=== PATIENT | male | born 1960 | race Hispanic/Latino ===

== ENCOUNTER 2018-12-02 16:05 | Emergency (ER) | payer OTHER ==
[~2018-12-02] VITALS: Ht 177.8 cm; Wt 99.8 kg
[2018-12-02] MEDS ORDERED: ACETAMINOPHEN 325 MG TAB PO ONE ×2 (16:45→23:30)
[2018-12-02 17:44] LABS: BASOPHILS % 0.4 % (0.0-1.0); EOSINOPHILS % 0.2 % (0.0-6.0); HEMATOCRIT 37.3 % (38.2-49.6); HEMOGLOBIN 13.3 g/dL (14.0-18.0); LYMPHOCYTES # (AUTO) 0.7 (1.0-3.2); LYMPHOCYTES % 9.2 % (18.0-39.1); MEAN CORPUSCULAR HEMOGLOBIN 30.9 pg (28-32); MEAN CORPUSCULAR HGB CONC 35.7 g/dL (31-35); MEAN CORPUSCULAR VOLUME 86.5 fL (81-99); MONOCYTES # (AUTO) 0.4 (0.2-0.8); MONOCYTES % 4.4 % (4.4-11.3); NEUTROPHILS # (AUTO) 6.8 (2.1-6.9); NEUTROPHILS % 84.9 % (38.7-80.0); PLATELET COUNT 132 x10e3/uL (140-360); RED BLOOD COUNT 4.31 x10e6/uL (4.3-5.7); RED CELL DISTRIBUTION WIDTH 12.5 % (11.7-14.4)
[2018-12-02 17:45] LABS: BILIRUBIN,URINE LARGE (NEGATIVE); CLARITY,URINE SL CLOUDY (CLEAR); COLOR,URINE BROWN (YELLOW); KETONES,URINE 1+ (NEGATIVE); LEUKOCYTE ESTERASE ,URINE NEGATIVE (NEGATIVE); NITRITE,URINE POSITIVE (NEGATIVE); PROTEIN,URINE DIPSTICK 2+ (NEGATIVE)
[2018-12-02 17:47] LABS: URINE UROBILINOGEN 8 mg/dL (0.2 - 1)
[2018-12-02 17:55] LABS: INR 1.19; PROTHROMBIN TIME 15.7 seconds (11.9-14.5)
[2018-12-02 17:56] LABS: PARTIAL THROMBOPLASTIN TIME 36.8 seconds (23.8-35.5)
[2018-12-02 18:00] LABS: BACTERIA,URINE MODERATE /HPF; EPITHELIAL CELLS,URINE FEW /LPF; WBC,URINE (MAN) 0-5 /HPF (0-5)
--- NOTE | 2018-12-02 18:03 | Diagnostic Imaging Report ---
Examination: Single AP view of the chest. COMPARISON: None. INDICATION: Chest pain DISCUSSION: Lines/tubes: None. Lungs: The lungs are well inflated and clear. No pneumonia or pulmonary edema. Pleura: No pleural effusion or pneumothorax. Heart and mediastinum: The heart and the mediastinum are unremarkable. Bones and soft tissues: No acute bony abnormalities. IMPRESSION: 1. No acute cardiopulmonary abnormalities. Signed by: Dr. Alban Alberto M.D. on 12/02/2018 5:59 PM
[2018-12-02 18:07] LABS: ALANINE AMINOTRANSFERASE 168 IU/L (0-55); ALBUMIN 3.2 g/dL (3.5-5.0); ALBUMIN/GLOBULIN RATIO 0.7 (0.8-2.0); ALKALINE PHOSPHATASE 79 IU/L (40-150); ANION GAP 13.1 mmol/L (8-16); BLOOD UREA NITROGEN 16 mg/dL (7-26); BUN/CREATININE RATIO 15 (6-25); CALCIUM 9.5 mg/dL (8.4-10.2); CARBON DIOXIDE 31 mmol/L (22-29); CHLORIDE 89 mmol/L (98-107); CREATINE KINASE 125 IU/L (30-200); CREATININE, SERUM 1.07 mg/dL (0.72-1.25); EST GLOMERULAR FILTRATION RATE > 60 ML/MIN (60-); GLUCOSE 212 mg/dL (74-118); POTASSIUM 3.1 mmol/L (3.5-5.1); SODIUM 130 mmol/L (136-145)
[2018-12-02] MEDS ORDERED: KCL 20MEQ/.9 SOD CHL 1,000 ML IV ONE (20:30)
[2018-12-02 20:44] LABS: AMPHETAMINES SCREEN,URINE NEGATIVE (NEGATIVE); BENZODIAZEPINES SCREEN,URINE POSITIVE (NEGATIVE); PHENCYCLIDINE SCREEN,URINE NEGATIVE (NEGATIVE)
[2018-12-02 20:48] LABS: ACETAMINOPHEN < 3 ug/mL (10-30); SALICYLATE < 5.0 mg/dL (0-30)
[2018-12-02 20:50] LABS: STREPTOCOCCUS GRP A ANTIGEN NEGATIVE (NEGATIVE)
[2018-12-02 20:57] LABS: INFLUENZAE A&B ANTIGEN (RAPID) NEGATIVE (NEGATIVE)
[2018-12-02 21:16] LABS: BAND NEUTROPHILS % (MANUAL) 6 %; LYMPHOCYTES % (MANUAL) 7 % (19-48); MONOCYTES % (MANUAL) 3 % (3.4-9.0); NEUTROPHILS % (MANUAL) 80 % (40-74)
--- NOTE | 2018-12-02 21:19 | Diagnostic Imaging Report ---
EXAMINATION: Head CT without contrast. HISTORY:Headache and fever. COMPARISON:None. TECHNIQUE: Multidetector axial images were obtained from the foramen magnum to the vertex without contrast. The images were reconstructed using brain and bone algorithms. Thin section brain images were reformatted into coronal and sagittal planes. Dose modulation, iterative reconstruction, and/or weight based adjustment of the mA/kV was utilized to reduce the radiation dose to as low as reasonably achievable. Intravenous contrast: None IMAGE QUALITY: Acceptable. FINDINGS: Skull/scalp: No lytic or blastic. lesions. No surgical changes. Parenchyma: No abnormal density. No acute hemorrhage, mass or acute major vascular territorial infarct. Arteries: No density suggestive of thrombosis. Dural sinuses: No abnormal density suggestive of thrombosis. Ventricles: No hydrocephalus or displacement. Extra-axial spaces: No abnormal density. Brain volume: Normal for age. Craniocervical junction: No mass, Chiari malformation, or basilar invagination. Sella: No mass. Paranasal/mastoid sinuses: Imaged portions unremarkable. IMPRESSION: No acute intracranial abnormality. Signed by: Dr. Viviana Hough M.D. on 12/02/2018 9:16 PM
[2018-12-02 21:21] LABS: ANISOCYTOSIS SLIGHT; HYPOCHROMASIA SLIGHT; RBC MORPHOLOGY COMMENT NORMAL
[2018-12-02 21:22] LABS: PLATELET ESTIMATE SLIGHTLY DECREASED; PLATELET MORPHOLOGY COMMENT NORMAL
[2018-12-02] MEDS ORDERED: HYDROCODONE/APAP 10MG-325MG TAB PO ONE (21:45)
[2018-12-02] MEDS ORDERED: IBUPROFEN 800MG/ 250ML 800 MG in SODIUM CHLORIDE 0.9% 250ML 250 ML IV ONE (22:00)
[2018-12-02] MEDS ORDERED: IBUPROFEN 400 MG TAB ONE (22:11)
[2018-12-02] MEDS ORDERED: SODIUM CHLORIDE 0.9% 50ML 50 ML ONE (22:13)
[2018-12-02] MEDS ORDERED: IOPAMIDOL 370 MG/ML 200 ML INFUS..BTL INJ ONE (22:13)
[2018-12-02] MEDS ORDERED: IBUPROFEN 400 MG TAB PO ONE (22:15)
--- NOTE | 2018-12-02 22:17 | Diagnostic Imaging Report ---
EXAM: CT Abdomen and Pelvis WITH contrast INDICATION: Pain. Fever. Elevated liver function tests/transaminases. COMPARISON: None. TECHNIQUE: Abdomen and pelvis were scanned utilizing a multidetector helical scanner from the lung base to the pubic symphysis after administration of IV contrast. Coronal and sagittal reformations were obtained. Routine protocol was performed. Scan was performed when during portal venous phase. IV CONTRAST: 100 cc is of view 300 ORAL CONTRAST: Water RADIATION DOSE: Total DLP: 793.65 mGy*cm Estimated effective dose: (DLP x 0.015 x size factor) mSv COMPLICATIONS: None FINDINGS: LINES and TUBES: None. LOWER THORAX: There is mild bibasilar atelectasis. HEPATOBILIARY: Liver enlarged measuring 20.5 cm in length. The liver is diffuse hypodense compared to the spleen, consistent with diffuse hepatic diffuse hepatic steatosis. No focal hepatic lesions. No biliary ductal dilation. GALLBLADDER: No radio-opaque stones or sludge. No wall thickening. Mild gallbladder hydrops measuring 5.2 cm in maximal transverse dimension. SPLEEN: No splenomegaly. PANCREAS: No focal masses or ductal dilatation. ADRENALS: No adrenal nodules KIDNEYS/URETERS: Kidneys enhance symmetrically. No hydronephrosis. No cystic or solid mass lesions. 2 mm nonobstructing calculus in the upper pole of the left kidney on image 38 series 2. GI TRACT: No abnormal distention, wall thickening, or evidence of bowel obstruction. Appendix is normal. PELVIC ORGANS/BLADDER: Unremarkable. LYMPH NODES: No lymphadenopathy. VESSELS: There is mild atherosclerotic disease in the aorta and major arterial branches. PERITONEUM / RETROPERITONEUM: No free air or fluid. BONES: There are multilevel degenerative changes in the lumbar spine. SOFT TISSUES: Unremarkable. IMPRESSION: 1. Hepatomegaly and hepatic steatosis. 2. Mild gallbladder hydrops without cholelithiasis, cholecystitis or biliary dilatation. 3. 2 mm nonobstructing calculus in the upper pole of the left kidney Signed by: Dr. Gildardo Loving M.D. on 12/02/2018 10:14 PM
[2018-12-02] MEDS ORDERED: CEFTRIAXONE SOD 1 GM/NS 50 ML 50 ML IV ONE (23:30)
[2018-12-02 23:56] VITALS: BP 126/79
== END 2018-12-03 00:08 | disposition home or self-care (01) ==
LOC: ER 16:05
DX: G44.211 Episodic tension-type headache, intractable (principal); K70.10 Alcoholic hepatitis without ascites; N30.91 Cystitis, unspecified with hematuria; E86.0 Dehydration
CPT/HCPCS: 36415; 70450; 71045; 74177; 80053; 80307; 80320; 80329 ×2; 81001; 82550; 82553; 83518; 83735; 83880; 84484; 85025; 85610; 85730; 87040; 87070; 87071; 87205; 87400; 93005; 99284; J0696; J7050; Q9967

== ENCOUNTER 2018-12-07 13:52 | Inpatient (IN) | payer OTHER ==
[~2018-12-07] VITALS: Ht 177.8 cm; Wt 93.9 kg
[2018-12-07] MEDS ORDERED: SODIUM CHLORIDE 0.9% 1000ML 1,000 ML IV STA ×3 (13:59→14:51)
[2018-12-07] MEDS ORDERED: DIGOXIN INJ 0.25 MG/ML 2 ML AMP IV ONE (14:00)
[2018-12-07] MEDS ORDERED: AMIODARONE HCL 150MG 100 ML IV ONE (14:00)
[2018-12-07] MEDS ORDERED: AMIODARONE HCL 360MG 200 ML IV SCH ×2 (14:00→18:00)
[2018-12-07] MEDS ORDERED: ASPIRIN 81 MG CHEW TAB PO ONE (14:00)
[2018-12-07] MEDS ORDERED: SODIUM CHLORIDE 0.9% 1000ML 1,000 ML ONE ×2 (14:08→14:28)
[2018-12-07] MEDS ORDERED: VANCOMYCIN 1GM/NS 250 ML 250 ML IV ONE (14:15)
[2018-12-07] MEDS ORDERED: CEFEPIME 2 GM/NS 0.9% 100 ML 100 ML IV ONE (14:15)
[2018-12-07 14:16] LABS: BASOPHILS # (AUTO) 0.1 (0.0-0.1); BASOPHILS % 0.2 % (0.0-1.0); EOSINOPHILS # (AUTO) 0.1 (0.0-0.4); EOSINOPHILS % 0.6 % (0.0-6.0); HEMATOCRIT 29.8 % (38.2-49.6); HEMOGLOBIN 10.7 g/dL (14.0-18.0); LYMPHOCYTES # (AUTO) 1.4 (1.0-3.2); MEAN CORPUSCULAR HEMOGLOBIN 30.9 pg (28-32); MEAN CORPUSCULAR HGB CONC 35.9 g/dL (31-35); MEAN CORPUSCULAR VOLUME 86.1 fL (81-99); MONOCYTES # (AUTO) 0.3 (0.2-0.8); MONOCYTES % 1.4 % (4.4-11.3); NEUTROPHILS # (AUTO) 17.9 (2.1-6.9); NEUTROPHILS % 88.4 % (38.7-80.0); RED BLOOD COUNT 3.46 x10e6/uL (4.3-5.7); RED CELL DISTRIBUTION WIDTH 14.4 % (11.7-14.4)
[2018-12-07 14:27] LABS: INR 1.41; PROTHROMBIN TIME 17.8 seconds (11.9-14.5)
[2018-12-07 14:28] LABS: PARTIAL THROMBOPLASTIN TIME 42.5 seconds (23.8-35.5)
[2018-12-07 14:33] LABS: PLATELET COUNT 43 x10e3/uL (140-360)
--- NOTE | 2018-12-07 14:33 | NUR ---
PTS BP NOW 75/51. SECOND LITER OF NS HUNG CONCURRENTLY WITH FIRST LITER THAT WAS RUNNING. BOTH BAGS RUNNING WIDE OPEN. ERMD AWARE. PT CONTINUES BE ON BIPAP AND RR 36
[2018-12-07 14:35] LABS: ABG HCO3 18 mmol/L (23-28); ABG PCO2 26 mmHg (41-51); ABG PH 7.45 (7.31-7.41); ABG PO2 277 mmHg (80-105)
[2018-12-07 14:36] LABS: ALBUMIN 1.9 g/dL (3.5-5.0); ALBUMIN/GLOBULIN RATIO 0.5 (0.8-2.0); CREATININE, SERUM 5.44 mg/dL (0.72-1.25); MAGNESIUM 2.2 MG/DL (1.3-2.1)
[2018-12-07 14:38] LABS: CALCIUM 6.9 mg/dL (8.4-10.2)
[2018-12-07 14:41] LABS: B-TYPE NATRIURETIC PEPTIDE2 537.7 pg/mL (0-100)
[2018-12-07 14:45] LABS: CREATINE KINASE MB 10.6 ng/mL (0-5.0)
[2018-12-07] MEDS: MIDAZOLAM HCL 25 MG in SODIUM CHLORIDE 0.9% 50ML 45 ML IV PRN ×2 (15:00→22:05)
--- NOTE | 2018-12-07 15:15 | Diagnostic Imaging Report ---
Examination: Single AP view of the chest. COMPARISON: AP chest 12/02/2018 INDICATION: Shortness of breath, atrial fibrillation, chest pain IMPRESSION: 1. Lines and Tubes: None 2. Lungs are well-inflated. Bilateral interstitial opacities extending from the mae, right greater than left, likely reflecting interstitial edema.. A more confluent airspace opacity in the right upper lobe likely reflect alveolar edema. No effusion. 3. Cardiomediastinal silhouette is normal. Moderate central pulmonary venous congestion 4. No acute bony abnormalities. Signed by: Dr. Donte Alcantara M.D. on 12/07/2018 3:12 PM
[2018-12-07] MEDS ORDERED: ACETAMINOPHEN 1000 MG/100 ML IV ONE (15:20)
[2018-12-07] MEDS ORDERED: ACETAMINOPHEN 1000 MG/100 ML 100 ML IV ONE (15:21)
[2018-12-07] MEDS ORDERED: HEPARIN 25,000 UNIT 1,000 UNIT in DEXTROSE 5% 250ML 250 ML IV SCH (15:30)
[2018-12-07] MEDS ORDERED: HEPARIN SOD (PORCINE) 5,000 UNIT/ML VIAL IV ONE (15:30)
--- NOTE | 2018-12-07 15:59 | Diagnostic Imaging Report ---
Chest, 1 view, 12/07/2018. History: Post intubation. Comparison: X-ray from earlier today. Findings: ET tube is present terminating at the level of the clavicles. Diffuse bilateral alveolar opacities are unchanged. There are no acute osseous or soft tissue abnormalities. Impression: ET tube in adequate position. Bilateral opacities without significant change. Signed by: Will Hoskins on 12/07/2018 3:56 PM
[2018-12-07 16:08] LABS: CLARITY,URINE CLOUDY (CLEAR); COLOR,URINE YELLOW (YELLOW)
[2018-12-07 16:09] LABS: BILIRUBIN,URINE 2+ (NEGATIVE); KETONES,URINE TRACE (NEGATIVE); LEUKOCYTE ESTERASE ,URINE 1+ (NEGATIVE); NITRITE,URINE NEGATIVE (NEGATIVE); PROTEIN,URINE DIPSTICK 2+ (NEGATIVE)
[2018-12-07] MEDS ORDERED: ONDANSETRON HCL INJ 2MG/ML 2ML 2 MG/ML VIAL IV PRN (16:15)
[2018-12-07] MEDS ORDERED: DEXTROSE 50% SYRINGE 50 ML IV PRN (16:15)
[2018-12-07] MEDS ORDERED: SODIUM CHLORIDE 0.9% 1000ML 1,000 ML IV ONE (16:15)
[2018-12-07 16:18] LABS: AMORPHOUS SEDIMENT,URINE MODERATE (FEW); BACTERIA,URINE FEW /HPF
[2018-12-07] MEDS ORDERED: POTASSIUM CHLORIDE 20MEQ/100ML 200 ML IV ONE (16:30)
[2018-12-07] MEDS: AZITHROMYCIN 500MG/NS 250 ML 250 ML IV SCH (17:00)
[2018-12-07 17:13] LABS: AMYLASE 131 U/L (25-125); LIPASE 71 U/L (8-78)
[2018-12-07 17:53] LABS: CREATINE KINASE MB 11.1 ng/mL (0-5.0)
[2018-12-07 18:06] LABS: ALBUMIN 1.8 g/dL (3.5-5.0); ALBUMIN/GLOBULIN RATIO 0.5 (0.8-2.0); ANION GAP 23.3 mmol/L (8-16); CREATININE, SERUM 5.34 mg/dL (0.72-1.25); POTASSIUM 3.3 mmol/L (3.5-5.1)
[2018-12-07] MEDS ORDERED: VECURONIUM BROMIDE FOR INJ 20 MG VIAL ONE (18:07)
[2018-12-07] MEDS ORDERED: WATER STERILE 10 ML VIAL ONE (18:07)
[2018-12-07] MEDS ORDERED: SUCCINYLCHOLINE CHLORIDE 20 MG/ML 10ML VIAL ONE (18:07)
[2018-12-07] MEDS ORDERED: ETOMIDATE 2 MG/ML 10 ML INJ IV ONE (18:07)
[2018-12-07] MEDS ORDERED: MIDAZOLAM HCL 2 MG/2 ML VIAL ONE (18:07)
--- NOTE | 2018-12-07 18:12 | History and Physical ---
CHIEF COMPLAINT: Difficulty breathing. HISTORY OF PRESENT ILLNESS: This is a 58-year-old man, who was brought to [facility] via [facility] because of difficulty breathing. According to family members, the patient also was having some confusion and difficulty walking. The patient presented to this emergency room five days ago on December 02, 2018, with complaints of headaches and subjective fever as well as generalized weakness. During that emergency room visit, lab work was unremarkable except he was found to have an AST and ALT of 135 and 168 respectively. The patient's other blood work was unremarkable. The patient did admit alcohol drinking to the emergency room physician that evening. However, urine toxicology was negative for ethyl alcohol. It was positive for opiates and benzodiazepines. The patient had influenza type A and B antigen checked and it was negative during that visit. Group A Strep screen was also negative. The patient did have urinalysis done that reveals slightly cloudy brown urine, positive nitrites, 11-20 red blood cells per high-power field, and moderate bacteria. The patient was given one dose of intravenous ceftriaxone, was sent home on oral cefuroxime, which the patient apparently had been taking. On this emergency room visit, the patient was found to have white blood cell count 20,200 with 88% segmenters. His hemoglobin was 10.7 g. The patient's platelet count 43,000. Urinalysis revealed cloudy yellow urine, 2+ protein, 2+ blood, 1+ leukocyte esterase, 6-10 white blood cells per high-power field, and few bacteria. The patient's BUN and creatinine were 113 and 5.44 respectively. Serum bicarb is 16. The patient's lactic acid is 93.9. The patient's calcium is 6.9. The patient's B-type natriuretic peptide level is 537. The patient's sodium is 123. The patient's potassium is 3.0. The patient was intubated in the emergency room because of hypoxic acute respiratory failure. REVIEW OF SYSTEMS: GENERAL: Weight has been stable. He has had fever and chills past week due to generalized weakness. HEENT: He has had headaches for the last week also. No visual changes. CARDIOVASCULAR: No chest pain. He has had shortness of breath for the past five days. He has also been coughing. GI: No nausea, vomiting, diarrhea, or constipation. : Minimal urine output for the last couple of days. NEUROMUSCULAR: Globally weak without any focal limb weakness or numbness. ALLERGIES: NO KNOWN DRUG ALLERGIES. MEDICATIONS: 1. Tresiba insulin 50 units subcutaneous daily. 2. Vitamin D3 2000 units daily. 3. Atorvastatin 20 mg at bedtime. 4. Metformin 1000 mg at bedtime. 5. Metoprolol succinate 25 mg b.i.d. 6. Losartan 100 mg daily. 7. Tamsulosin 0.4 mg once daily. 8. Amlodipine 10 mg daily. 9. Cyclobenzaprine 10 mg b.i.d. 10. [place] 7.5/325 mg one b.i.d. p.r.n. pain. 11. Aspirin 81 mg daily. PAST MEDICAL HISTORY: 1. Type 2 diabetes mellitus with neuropathy. 2. Benign prostatic hypertrophy with lower urinary tract symptoms. 3. Mild obesity, BMI 32. 4. Hypertensive heart disease. 5. Stage 1 chronic kidney disease with microalbuminuria. 6. Vitamin D deficiency. 7. Chronic back pain secondary to multilevel lumbar disease. PAST SURGICAL HISTORY: None. FAMILY HISTORY: Both his parents had hypertension. Coronary artery disease in his uncles. His mother had a cerebrovascular accident. He has two brothers with diabetes mellitus. SOCIAL HISTORY: He is , lives with his . 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 He binge drinks alcohol on the weekend. No tobacco smoker. PHYSICAL EXAMINATION: GENERAL: He is intubated. He is very diaphoretic. VITAL SIGNS: Blood pressure is 99/54, pulse 100, respiratory rate is 30, oxygen saturation this time is 91% on the ventilator. Temperature is 102.6. Height 5 feet 10 inches. Weight 220. BMI 32. INTEGUMENT: Skin is diaphoretic. No pallor or jaundice. HEENT: Anterior sclerae. Moist mucous membranes. He has an endotracheal tube in place. NECK: Supple. No evidence of jugular venous distention. CARDIOVASCULAR: Distant heart sounds. Tachycardic, irregular rhythm. LUNGS: The patient has faint crackles bilaterally. ABDOMEN: Benign. Normal bowel sounds. Nontender. EXTREMITIES: No edema or deformity. NEUROLOGIC: Intact. DIAGNOSES: 1. Sepsis likely secondary to urinary tract infection. 2. Multiorgan failure from sepsis. 3. Acute respiratory failure. 4. Bilateral pneumonia, likely. 5. Acute renal failure. 6. Atrial fibrillation with rapid ventricular rate. PLAN: 1. Intravenous fluids. 2. Intravenous pressors. 3. Consult Nephrology for the patient's acute renal failure since he may need hemodialysis. 4. Intravenous antibiotics. 5. Urine and blood culture. 6. We will order another influenza A and B antigen nasal swab. 7. Hold all of his home medications particularly metformin and losartan because of his acute renal failure. I spent 75 minutes in the care of this intensive care unit patient. MD ASHLEY Mata/MODL /[id number]
[2018-12-07 18:13] LABS: CALCIUM 6.3 mg/dL (8.4-10.2)
--- NOTE | 2018-12-07 18:48 | Diagnostic Imaging Report ---
Examination: Single AP view of the chest. COMPARISON: AP chest 12/07/2018 INDICATION: Status post central catheter placement IMPRESSION: 1. Lines and Tubes: Interval placement of right IJ double lumen catheter, with distal tip projecting at the distal SVC. Interval placement of endotracheal tube, with distal tip projecting approximately 4.7 cm above the gabby. 2. Otherwise, no interval change since the prior exam. Signed by: Dr. Donte Alcantara M.D. on 12/07/2018 6:44 PM
--- NOTE | 2018-12-07 18:58 | Diagnostic Imaging Report ---
Nontunneled dialysis catheter placement, 12/07/2018. History: Acute renal failure. Comparison: None available. Buccaro: Dr. Hoskins. Medication: 5 cc of 1% lidocaine without epinephrine. Conscious sedation: None. EBL: < 2 cc. Specimen: None. Technique: After informed consent and timeout procedure, the access site was prepped and draped with the standard maximal sterile barrier technique. Ultrasound images demonstrated vessel patency. Images were documented within PACS. The skin was anesthetized with lidocaine. The right internal jugular vein was accessed using a micropuncture set with ultrasound guidance. A 0.035-in. wire was advanced through the micropuncture sheath into the vein. The tract was dilated. A 13 La[place] 15 cm triple-lumen Trialysis catheter was advanced over the wire into the vessel. The catheter was secured with suture. Dressing was applied. The patient tolerated the procedure well without evidence of complication. Postprocedure chest x-ray was ordered. IMPRESSION: Successful nontunneled dialysis catheter placement with ultrasound guidance guidance. Catheter is ready for immediate use. Signed by: Will Hoskins on 12/07/2018 6:54 PM
[2018-12-07 19:00] VITALS: BP 108/73
[2018-12-07] MEDS ORDERED: HEPARIN SOD (PORCINE) 5,000 UNIT/ML VIAL ONE (19:42)
[2018-12-07] MEDS ORDERED: HEPARIN 25,000 UNIT DRIP IV ONE (19:42)
--- NOTE | 2018-12-07 19:46 | Consultation ---
DATE OF CONSULTATION: 12/07/2018 REASON FOR CONSULTATION: Sepsis with septic shock. HISTORY OF PRESENT ILLNESS: This patient, who is a 58-year-old male, is a patient of Dr. Blankenship. He was here in the hospital few days ago with some feeling of flu-like illness, fever sensation. He had a normal WBC back and influenza A and B was negative. The patient was given Rocephin and sent home with Ceftin. The patient is known to drink and have liver disease from alcoholism. He also has diabetes mellitus. The patient went home, he was there for a few days. He was found today unresponsive. 911 was called. He is currently intubated. Hypotensive. Infectious Disease was asked to see the patient. The patient is noncommunicative. Family at the bedside. Discussed with the medical team. LABORATORY DATA: White count is 20,000, hemoglobin 10, and hematocrit 29. His sodium 133, potassium 3.0, creatinine 5.44 which is new, calcium 6.9, and lactic acid 93. His chest x-ray showed bilateral interstitial opacities. Blood cultures and urine cultures still negative. PHYSICAL EXAMINATION: GENERAL: He is intubated and sedated. VITAL SIGNS: Stable, currently afebrile. HEENT: Not icteric. NECK: Supple. CHEST: Few crackles. COR: S1 and S2. ABDOMEN: Soft. IMPRESSION AND PLAN: 1. Septic shock, source probably pyelonephritis, concerned about elevated liver enzyme. CAT scan did not reveal pathology in terms of stone. I would recommend ultrasound of the gallbladder. The CAT scan did reveals that he had some liver disease, probably from his alcoholism and maybe fatty liver. 2. Thrombocytopenia due to fatty liver and probable alcoholic hepatitis. 3. Acute kidney injury, probably underlying chronic kidney disease. 4. Hypokalemia. 5. Hyponatremia. Agree with IV fluids. Agree with vasopressor. We will give vancomycin one time dose. We will do meropenem 500 mg daily. Recheck liver enzymes. Recheck CBC. Recheck chem panel. Agree with amylase and lipase. ICU admission. We will follow. MD JERRICA John/SANTOS /[id number]
[2018-12-07 19:50] VITALS: BP 111/92
[2018-12-07 20:00] VITALS: BP 80/48
[2018-12-07] MEDS ORDERED: POTASSIUM CHLORIDE 20MEQ/100ML 100 ML ONE (20:07)
[2018-12-07 20:22] LABS: LYMPHOCYTES % (MANUAL) 5 % (19-48); MONOCYTES % (MANUAL) 3 % (3.4-9.0); NEUTROPHILS % (MANUAL) 91 % (40-74); PLATELET ESTIMATE MODERATELY DECREASED; PLATELET MORPHOLOGY COMMENT NORMAL; RBC MORPHOLOGY COMMENT NORMAL
[2018-12-07] MEDS ORDERED: AMIODARONE IV ONE (20:30)
[2018-12-07 20:33] LABS: ABG PCO2 29 mmHg (41-51); ABG PH 7.38 (7.31-7.41); ABG PO2 122 mmHg (80-105)
[2018-12-07 20:34] LABS: ABG HCO3 17 mmol/L (23-28)
[2018-12-07 21:00] VITALS: BP 100/80
--- NOTE | 2018-12-07 21:09 | Diagnostic Imaging Report ---
EXAM: Complete Abdominal Ultrasound INDICATION: ^sepsis with elevated LFTs ^[id number] ^2000 ^Y COMPARISON: CT abdomen and pelvis 12/02/2018 TECHNIQUE: Transverse and longitudinal images of the upper abdomen were obtained. FINDINGS: Exam limited due to patient's body habitus and intubation Liver: Size: 20.7 cm in the right midclavicular line, enlarged Appearance: Increased echogenicity, smooth contour Mass: No focal masses Spleen: Size: 13.4 cm in length, enlarged Echogenicity: Normal Mass: No focal masses Gallbladder: Stones/Sludge: No echogenic stones are noted. Internal echoes in the gallbladder lumen likely representing gallbladder sludge. Wall: 0.8 cm Appearance: Trace pericholecystic fluid . Sonographic Valladares's Sign: Unable to be obtained Bile Ducts: Intrahepatic Ducts: No dilatation Extrahepatic Ducts: Common bile duct measures 0.6 cm, no dilatation Pancreas: Visualized portions of the neck and proximal body are unremarkable. Kidneys: Length: Right 14.1 cm Left 14.3 cm Echogenicity: Normal Collecting System: No hydronephrosis Stone: None Cyst/Mass: None Vessels: Aorta: Visualized portions are normal Inferior Vena Cava: Visualized portions are normal Main Portal Vein: 1.4 cm, normal size with hepatopetal flow. Free Fluid: No ascites or pleural effusion IMPRESSION: 1. Likely gallbladder sludge. No echogenic stones are visualized. Moderate wall thickening and trace pericholecystic fluid. Sonographic Valladares sign is unreliable, as the patient is intubated and unresponsive. Acalculous cholecystitis is a consideration. 2. Hepatomegaly with diffuse fatty infiltration. No focal lesions. 3. Mild splenomegaly Signed by: Dr. Donte Alcantara M.D. on 12/07/2018 9:06 PM
[2018-12-07] MEDS: INSULIN LISPRO 100 UNIT/1 ML 3ML VIAL SQ SCH (21:58)
[2018-12-07 22:00] VITALS: BP 100/70
[2018-12-07] MEDS: AMIODARONE IV ONE (22:01)
[2018-12-07] MEDS: FENTANYL CITRATE INJ 2,000 MCG in SODIUM CHLORIDE 0.9% 250ML 210 ML IV PRN (22:03)
[2018-12-07 23:00] VITALS: BP 91/65
[2018-12-08] VITALS (26 sets, daily range): BP systolic 81–129; BP diastolic 56–94
[2018-12-08] MEDS ORDERED: SODIUM CHLORIDE 0.9% 1000ML 2,000 ML IV PRN (00:15)
[2018-12-08] MEDS ORDERED: ALBUMIN 25% 25GM 100ML 0.25 GM/ML BTL IV PRN (00:15)
[2018-12-08] MEDS ORDERED: MANNITOL 25% 12.5GM/50 ML VIAL IV PRN (00:15)
[2018-12-08] MEDS ORDERED: HEPARIN SOD (PORCINE) 1000 UNIT/ML SDV IV ONE (00:15)
[2018-12-08 00:18] LABS: INR 1.51; PROTHROMBIN TIME 18.8 seconds (11.9-14.5)
[2018-12-08 00:19] LABS: PARTIAL THROMBOPLASTIN TIME 49.7 seconds (23.8-35.5)
[2018-12-08] MEDS ORDERED: SODIUM CHLORIDE 0.9% 1000ML 1,000 ML ONE ×2 (00:25→00:26)
--- NOTE | 2018-12-08 00:30 | NUR ---
Heparin Increased by 100units/hr per protocol. PTT @ 0600
--- NOTE | 2018-12-08 00:48 | Consultation ---
DATE OF CONSULTATION: 12/07/2018 Pulmonary Consultation Patient of Dr. Vicente Blankenship. HISTORY OF PRESENT ILLNESS: An unfortunate 58-year-old gentleman admitted through the emergency room with shortness of breath and hypotensive, history of diabetes and respiratory failure, lactic acidosis, peripheral neuropathy, BPH, new onset atrial fibrillation, vitamin D deficiency, history of drinking on the weekends, nonsmoker. He was seen in the emergency room on the , felt to have a urinary tract infection. Also, found to have atrial fibrillation at that time. He is a burly white male intubated and sedated. HOME MEDICATIONS: Had included insulin, vitamin D, metoprolol, losartan, Flomax, amlodipine, Flexeril, Vicodin, as well as aspirin. PHYSICAL EXAMINATION: VITAL SIGNS: Temperature now is 102.6, pulse 133 and irregular, respirations 25, blood pressure 99/60. GENERAL: He is intubated, burly, white male LUNGS: Bilateral rhonchi. HEART: Irregular rhythm. ABDOMEN: Nontender. EXTREMITIES: Nonedematous. IMPRESSION: Pneumonia, possibly hematogenous, possible aspiration. PLAN: CT of the chest when stable, broad-spectrum antibiotics, echocardiogram, evaluation of anemia, thrombocytopenia, leukocytosis, moderate coagulopathy, sudden onset of renal failure, thrombocytopenia, acute onset of renal failure, request renal ultrasound. Nephrology opinion is pending infectious disease. Thank you for this kind referral. MD KALEY Burns/MODL /[id number]
--- NOTE | 2018-12-08 03:23 | Consultation ---
DATE OF CONSULTATION: 12/07/2018 REASON FOR CONSULTATION: Acute kidney injury and azotemia. HISTORY OF PRESENT ILLNESS: The patient is a 58-year-old male with past medical history of diabetes type 2, peripheral neuropathy, BPH, hypertension, chronic back pain secondary to lumbar disease, was admitted with shortness of breath, acute respiratory failure. According to the patient's daughter who is at bedside, the patient was here 5 days ago with generalized weakness and subjective fever. At that time, UA was positive for possible infection and the patient was discharged home on antibiotic. The patient's daughter does not know the name of the antibiotic. At that time, group A strep screen was negative and influenza A and B were negative. Blood culture from December 02, so far negative. Per daughter, the patient was supposed to follow up with the doctor today and on their way to the doctor's office, the patient started getting more and more short of breath. He was having intermittent fever at home. Denies having any nausea, vomiting, or diarrhea or having any cough or sputum. EMS was called. The patient eventually got intubated in the emergency room. Chest x-ray showed bilateral infiltrate. He was found to have a white count of 20.2 with a hemoglobin of 10.7. He was found to be in acute kidney injury with creatinine of 5.4. On December 02, 2018, creatinine was 1.07. The patient was given vancomycin 1 dose and started on cefepime and azithromycin. He had a Mclain catheter placed and had only 50 mL of urine after 3.5 L of normal saline bolus per sepsis protocol. The patient is currently intubated and not on any pressor. The patient is awake and follows simple commands. His lactic acid was found to be 93.9. Blood and urine culture are pending. The patient had a CT abdomen and pelvis done back in 12/02/2018, that showed hepatomegaly, mild gallbladder hydrops without cholelithiasis, and left kidney nonobstructive calculi. Unsure whether there is any history of any NSAID or not. The patient had a fever of 102.6 in the emergency room. PAST MEDICAL HISTORY: As above. PAST SURGICAL HISTORY: None. FAMILY HISTORY: Positive for hypertension. 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 Drinks alcohol over the weekend. No tobacco. No intravenous drug abuse. REVIEW OF SYSTEMS: Pertinent positives ones as per HPI. MEDICATIONS AT HOME: The patient is on: 1. Vitamin D3. 2. Atorvastatin. 3. Metformin. 4. Metoprolol. 5. Losartan. 6. Amlodipine. 7. Cyclobenzaprine. 8. [place]. 9. Aspirin. 10. Tresiba insulin. PHYSICAL EXAMINATION: VITAL SIGNS: Blood pressure 99/54, pulse of 138, respirations 24, temperature 92.6, 91% on 100% FiO2. GENERAL: Intubated, not in apparent distress. HEENT: PERRLA. Extraocular muscles are intact. NECK: No JVD. HEART: S1, S2. LUNGS: Coarse breath sounds bilaterally. ABDOMEN: Soft, nontender, nondistended. Bowel sounds positive. EXTREMITIES: No edema. GENITOURINARY: Has a Mclain and dark urine in it. LABORATORY DATA: Sodium 123, potassium 3.3, chloride 85, CO2 of 18. BUN 112, creatinine 5.3, lactic acid 47.5, glucose 173. AST 268, ALT 138, lipase 71, amylase 131. Troponin 0.073. White count 20.2, hemoglobin 10.7, platelet count is 43. ABG; pH 7.45, pCO2 of 26, PO2 of 77, bicarb of 18. UA is positive for leukocyte esterase, 6 to 10 wbc. INR 1.4. Influenza A and B negative. Chest x-ray; bilateral infiltrates, no acute bony abnormalities, heart normal, moderate central pulmonary venous congestion. ASSESSMENT AND PLAN: 1. Acute kidney injury, likely secondary to acute tubular necrosis from infection. Hold all nephrotoxic medications. As the patient is with azotemia and oligoanuric, we will do one session of dialysis today. We will not do any ultrafiltration for now. Repeat the labs in the morning and decide on dialysis in the morning. 2. New-onset atrial fibrillation. Cardiology consulted. On amiodarone drip. Follow up on the echocardiogram. 3. Sepsis. Follow up on all the cultures. Continue with broad-spectrum antibiotics. Continue with 100 mL/h of normal saline for now. 4. Acute respiratory failure, on vent. 5. Possible bilateral pneumonia. Influenza A and B negative. Continue with antibiotics for now. 6. Nephrolithiasis. Follow up as an outpatient. The patient had a CT of the abdomen and pelvis done with IV contrast on 12/02/2018. Discussed with the family at bedside. Thank you Dr. Blankenship for the consult. MD CONCHITA Rebollar/SANTOS /[id number]
[2018-12-08] MEDS: AMIODARONE IV ONE (03:49)
[2018-12-08] MEDS: MIDAZOLAM HCL 25 MG in SODIUM CHLORIDE 0.9% 50ML 45 ML IV PRN ×2 (04:45→11:31)
[2018-12-08] MEDS: INSULIN LISPRO 100 UNIT/1 ML 3ML VIAL SQ SCH ×5 (05:57→23:36)
[2018-12-08] MEDS: CEFEPIME 2 GM/NS 0.9% 100 ML 100 ML IV SCH (06:32)
[2018-12-08 07:31] LABS: BASOPHILS # (AUTO) 0.1 (0.0-0.1); BASOPHILS % 0.3 % (0.0-1.0); EOSINOPHILS # (AUTO) 0.1 (0.0-0.4); EOSINOPHILS % 0.6 % (0.0-6.0); HEMATOCRIT 26.3 % (38.2-49.6); HEMOGLOBIN 9.3 g/dL (14.0-18.0); LYMPHOCYTES % 5.2 % (18.0-39.1); MEAN CORPUSCULAR HEMOGLOBIN 30.7 pg (28-32); MEAN CORPUSCULAR HGB CONC 35.4 g/dL (31-35); MEAN CORPUSCULAR VOLUME 86.8 fL (81-99); MONOCYTES # (AUTO) 0.2 (0.2-0.8); NEUTROPHILS # (AUTO) 17.2 (2.1-6.9); NEUTROPHILS % 90.1 % (38.7-80.0); RED BLOOD COUNT 3.03 x10e6/uL (4.3-5.7)
[2018-12-08 07:55] LABS: CREATINE KINASE MB 8.9 ng/mL (0-5.0)
[2018-12-08 08:04] LABS: PLATELET COUNT 35 x10e3/uL (140-360)
[2018-12-08 08:10] LABS: ALBUMIN 1.6 g/dL (3.5-5.0); ALBUMIN/GLOBULIN RATIO 0.5 (0.8-2.0); ANION GAP 18.7 mmol/L (8-16); CREATININE, SERUM 4.67 mg/dL (0.72-1.25); POTASSIUM 3.7 mmol/L (3.5-5.1)
[2018-12-08 08:16] LABS: CALCIUM 6.5 mg/dL (8.4-10.2)
[2018-12-08 08:17] LABS: AMYLASE 345 U/L (25-125); LIPASE 378 U/L (8-78)
[2018-12-08] MEDS ORDERED: VANCOMYCIN 1GM/NS 250 ML 250 ML IV ONE (09:15)
[2018-12-08] MEDS: PANTOPRAZOLE 40 MG 10ML VIAL IV SCH (09:15)
[2018-12-08 09:41] LABS: ABG HCO3 21 mmol/L (23-28); ABG PCO2 36 mmHg (41-51); ABG PH 7.37 (7.31-7.41); ABG PO2 81 mmHg (80-105)
--- NOTE | 2018-12-08 10:31 | NUR ---
Nutrition Intervention Note RD Recommendation(s) for Physician (12/08): -TF recommendation when medically feasible: Vital AF at 10 ml/hr advance as tolerated to goal rate of 65 ml/hr with 30 ml water flushed every 4 hours. (1872 kcal, 117 gram protein, 1265 ml of water) -IVF management and additional flushes per MD. -ADAT to cardiac, 1800 ADA diet per MD after extubation. Plan of Care: RD following, monitoring for tolerance and adequacy. EN recs. Nutrition reason for involvement: Pt intubated -nutrition trigger RD Assessment 12/08: 58 YOM admitted for Afib with PMH listed below. Pt is intubated and sedated on fentanyl, no pressor support or propofol. Family was at bedside, they reported the pt didnt eat for about 4 days prior to admission (only consumed small portions d/t decreased appetite. They stated there has been no unintentional weight loss recently. Pt appears well-nourished. Provided TF recommendations above, Vital AF is approparite d/t pt having DM and is not on propofol or pressors. Per nurse- no plans to wean today. Pt was admitted here last week and d/c on 12/02. Pt is the same weight as last week. Will continue to monitor. Principal Problems/Diagnoses: Afib PMH: history of diabetes and respiratory failure, lactic acidosis, peripheral neuropathy, BPH, new onset atrial fibrillation, vitamin D deficiency GI: LBM: not recorded, Abd: Soft, nontender, nondistended. Bowel sounds positive. Skin: No pressure ulcer recorded in FS, No edema Labs: 12/08: Na 130, Cl 94, CO2 21, BUN 95, Crea 4.67, Gluc 126, Ca 6.5, tbili 8.6, AST 211, ALT 117, Creat kinase 213, B-Nery peptide 515.3, Amylase 345, Lipase 378 Meds: protonix, abx, lispro, fentanyl, amiodarone, zofran IVF: NS at 100 ml/hr Ht: 70 in Wt: 220 lbs BMI:31.6 kg/m^2 IBW:166 lbs Malnutrition Evaluation 12/08 The patient does not meet criteria for a specified degree of malnutrition at this time. Will re-evaluate at follow-up as appropriate. Energy intake: <50% of estimated energy requirements for >5 days Weight loss: no recent weight loss Fat loss: none Muscle loss: none Supporting Evidence: Fluid accumulation: none Nutrition Prescription (Diet Order): NPO Estimated Nutritional Needs: Calories: 1184-2247(22-25 kcal/kg/day) Weight used : IBW ( 75 kg) -intubated Protein : 112-150(1.5-2 gram/kg/day ) Weight used: IBW (75 kg) -intubated Diet Adequacy: Not meeting calorie needs, Not meeting protein needs Diet Education Needs Assessment: Diet education not indicated, patient on temporary/transition diet. Nutrition Care Level: MOD Nutrition Diagnosis: Inadequate energy intake related to medical condition as evidenced by pt being NPO and ventilated. Goal: Patient will meet 75-100% of estimated needs by follow up Progress: N/A Interventions: - carb, mineral (sodium), fat, cholesterol modified diet, Composition, Rate, Route, IVF, Prescription medications, Collaboration with other providers Monitoring/Evaluation: -Total energy intake, Total protein intake, Formula/Solution, IVF, Prescription medication, Modified diet Signed: Jeannie Bolaños RD, LD
--- NOTE | 2018-12-08 10:53 | NUR ---
NOTIFIED DR BHUMIKA PALACIOS OFFICE REGARDING NEW CONSULT FOR ABNORMAL ABDOMINAL US.
--- NOTE | 2018-12-08 10:54 | Diagnostic Imaging Report ---
Exam: KUB - 2 views Indication: NG tube placement Comparison: None Findings: NG tube projects below the diaphragm with tip and side-port in the stomach. Nonobstructive bowel gas pattern. No definite free air. Impression: NG tube with tip and side-port in the stomach. Signed by: Karyn Maldonado MD on 12/08/2018 10:50 AM
--- NOTE | 2018-12-08 11:19 | Diagnostic Imaging Report ---
EXAM: CT Chest WITHOUT intravenous contrast 12/08/2018 5:00 AM INDICATION: Pneumonia COMPARISON: None TECHNIQUE: Chest was scanned utilizing a multidetector helical scanner from the lung apex through the level of the adrenal glands without administration of IV contrast. Coronal and sagittal reformations were obtained. Routine protocol was performed. IV CONTRAST: None RADIATION DOSE: Total DLP: 537.9 mGy*cm. Dose modulation, iterative reconstruction, and/or weight based adjustment of the mA/kV was utilized to reduce the radiation dose to as low as reasonably achievable. COMPLICATIONS: None FINDINGS: LINES/ TUBES: Endotracheal tube terminates in the midthoracic trachea. Right IJ nontunneled central venous catheter terminates in the superior vena cava. Enteric tube projects below the diaphragm and is incompletely visualized but has with tip coiling back up to the GE junction. LUNGS AND AIRWAYS: The central airways are patent. The lung volumes are low. Bibasilar dependent subsegmental atelectasis. There are bilateral multifocal upper lobe and centrally predominant right greater than left groundglass and consolidative opacities. PLEURA: The pleural spaces are clear. HEART AND MEDIASTINUM: The thyroid gland is normal. No supraclavicular lymphadenopathy. Numerous mediastinal enlarged lymph nodes measure up to 1.5 cm short axis, for example at the AP window and pretracheal stations. The heart is not enlarged. No pericardial effusion.. UPPER ABDOMEN: Limited noncontrast images of the upper abdomen demonstrate no focal abnormality of the partially visualized liver or spleen. The pancreas, adrenals, and kidneys are not visualized. BONES: No acute osseous injury. No suspicious lytic blastic lesions. Degenerative changes of the visualized spine. SOFT TISSUES: Unremarkable. IMPRESSION: Bilateral multifocal upper lobe and centrally predominant right greater than left groundglass and consolidative opacities consistent with multifocal pneumonia and/or aspiration. Mediastinal lymphadenopathy, likely reactive. Lines and tubes as above. Signed by: Karyn Maldonado MD on 12/08/2018 11:16 AM
[2018-12-08] MEDS: FENTANYL CITRATE INJ 2,000 MCG in SODIUM CHLORIDE 0.9% 250ML 210 ML IV PRN (11:31)
[2018-12-08] MEDS ORDERED: HEPARIN SOD (PORCINE) 1000 UNIT/ML SDV IV PRN (11:45)
--- NOTE | 2018-12-08 12:09 | NUR ---
-Discussed pt in rounds. -Observed pt receiving dialysis. -Pt is also on versed per nurse. -Pt has order for Glucerna 1.5 at 40 ml/hr, reported to nurse RD does not recommend this and referred her to nutrition note for RD recommendations. Nurse reported the pt will not be feeding today because of procedure later today.
[2018-12-08] MEDS: SODIUM CHLORIDE 0.9% 1000ML 1,000 ML IV SCH (15:30)
[2018-12-08] MEDS: METRONIDAZOLE 500MG/NS 100ML 100 ML IV SCH ×2 (15:30→21:27)
[2018-12-08] MEDS: AZITHROMYCIN 500MG/NS 250 ML 250 ML IV SCH (16:30)
[2018-12-08] MEDS: METOPROLOL TARTRATE 25 MG TAB PO SCH ×2 (16:30→23:35)
--- NOTE | 2018-12-08 17:27 | Diagnostic Imaging Report ---
EXAM: CT Abdomen and Pelvis WITHOUT intravenous contrast INDICATION: Abdominal pain, sepsis COMPARISON: CT abdomen and pelvis of 12/02/2018, abdominal ultrasound of earlier the same day, chest CT of earlier the same day TECHNIQUE: Abdomen and pelvis were scanned utilizing a multidetector helical scanner from the lung base to the pubic symphysis without administration of IV contrast. Coronal and sagittal reformations were obtained. IV CONTRAST: None ORAL CONTRAST: Water COMPLICATIONS: None RADIATION DOSE: Total DLP: 996.3 mGy*cm Dose modulation, iterative reconstruction, and/or weight based adjustment of the mA/kV was utilized to reduce the radiation dose to as low as reasonably achievable. FINDINGS: LINES & TUBES: Enteric tube courses through the stomach and loops in the proximal duodenum with tip returning to the body of the stomach. LOWER THORAX: Please refer to the report from the chest CT of the same day for detailed intrathoracic findings. HEPATOBILIARY: No focal liver lesions. No definite biliary ductal dilation. There is contrast material within the gallbladder, likely related to vicarious secretion of iodinated contrast. The gallbladder wall measures up to 6 mm, which is increased in thickness compared to the prior CT of 12/02/2018 and comparable to the ultrasound of earlier the same day. However, the gallbladder is not dilated and measures smaller in overall dimension (5.9 x 3.6 cm) than on 12/02/2018. No pericholecystic fluid. SPLEEN: No splenomegaly. PANCREAS: No focal masses or ductal dilatation. ADRENALS: No adrenal nodules. KIDNEYS/URETERS: 3 mm nonobstructive left midpole renal calculus. No hydronephrosis. PELVIC ORGANS/BLADDER: Mclain catheter terminates in the bladder. PERITONEUM / RETROPERITONEUM: No free air or fluid. LYMPH NODES: No lymphadenopathy. VESSELS: Mild scattered atherosclerotic calcifications of the nonaneurysmal abdominal aorta and major branches. GI TRACT: Mild diverticulosis. No CT evidence of diverticulitis. No abnormal bowel wall thickening. No bowel obstruction. BONES AND SOFT TISSUES: No acute osseous injury. No suspicious lytic or blastic lesions. IMPRESSION: Mild gallbladder wall thickening to 6 mm, which is increased compared to the prior CT of 12/02/2018. However the gallbladder is overall less distended than on the prior CT and there is no pericholecystic fluid. 3 mm nonobstructive left midpole renal calculus. For intrathoracic findings, please refer to the dedicated report from the chest CT of the same day. Signed by: Karyn Maldonado MD on 12/08/2018 5:24 PM
--- NOTE | 2018-12-08 23:13 | Consultation ---
DATE OF CONSULTATION: 12/08/2018 Cardiology Consult Note REASON FOR CONSULT: AFib with RVR. CHIEF COMPLAINT: Cannot be explained. The patient is intubated and sedated. HISTORY OF PRESENT ILLNESS: The patient is a 58-year-old man, presented with shortness of breath. He was found to be febrile in respiratory distress, requiring intubation. Atrial fibrillation with rapid ventricular response. He was given amiodarone boluses, converted to sinus rhythm. Multiple lab abnormalities, multiorgan dysfunction, admitted to ICU for critical care. The patient remains intubated and sedated, undergoing dialysis today. PAST MEDICAL HISTORY: Unknown. REVIEW OF SYSTEMS: Could not be obtained as the patient is intubated and sedated. ALLERGIES: NO KNOWN DRUG ALLERGIES. MEDICATIONS: Please see [facility] for outpatient medical reconciliation. This was reviewed. PAST MEDICAL HISTORY: 1. Diabetes. 2. BPH. 3. Obesity. 4. Hypertension. 5. Chronic kidney disease. FAMILY HISTORY: History of CAD in his uncle. SOCIAL HISTORY: Long history of alcohol abuse with episodes of binge drinking. Does not smoke. OBJECTIVE: VITAL SIGNS: Temperature 99.2, pulse 102, respiratory rate 26, blood pressure 106/94, saturating 100% on mechanical ventilation. GENERAL: A man, in no acute distress. Intubated and sedated. CARDIOVASCULAR: Tachycardic, regular. No murmurs, rubs, or gallops. LUNGS: Coarse breath sounds bilaterally. ABDOMEN: Soft, nontender, nondistended. Obese. NEURO AND PSYCH: Intubated and sedated. INPATIENT MEDICATIONS: Reviewed. Amiodarone drip was never started. The patient completed the bolus and converted to sinus rhythm. LABORATORY DATA: Reviewed. Multiple critical labs including platelet count of 35, white count of 20, sodium 123. Lactic acid of 47.5, BNP of 537. Troponin negative. Abnormal LFTs. Imaging data reviewed. Chest CT shows multifocal pneumonia. Abdominal ultrasound showed hepatomegaly with diffuse fatty infiltration, gallbladder sludge. Echocardiogram reviewed shows mildly-reduced LV systolic function. TELEMETRY DATA: Reviewed. Initial atrial fibrillation now converted to sinus tachycardia. ASSESSMENT AND PLAN: 1. Atrial fibrillation with rapid ventricular response. 2. Acute systolic heart failure, EF 40% to 45%. 3. Septic shock. 4. Multiorgan failure. 5. Acute respiratory failure, requiring mechanical ventilation. 6. Multifocal pneumonia. 7. Acute renal failure, requiring dialysis. PLAN: The patient is now in sinus rhythm on oral beta-blockers as blood pressure tolerates. No anticoagulation given, severe thrombocytopenia Thank you for this consult. We will continue to follow. MD GENE Anna/HEIDYL /[id number]
[2018-12-09] VITALS (28 sets, daily range): BP systolic 76–113; BP diastolic 52–82
[2018-12-09] MEDS: SODIUM CHLORIDE 0.9% 1000ML 1,000 ML IV SCH ×3 (00:04→21:39)
[2018-12-09] MEDS: ACETAMINOPHEN 325 MG TAB PO PRN ×4 (00:11→21:00)
[2018-12-09] MEDS: FENTANYL CITRATE INJ 2,000 MCG in SODIUM CHLORIDE 0.9% 250ML 210 ML IV PRN (04:25)
[2018-12-09 05:22] LABS: BASOPHILS # (AUTO) 0.1 (0.0-0.1); BASOPHILS % 0.4 % (0.0-1.0); EOSINOPHILS # (AUTO) 0.1 (0.0-0.4); EOSINOPHILS % 0.4 % (0.0-6.0); HEMATOCRIT 25.7 % (38.2-49.6); HEMOGLOBIN 8.9 g/dL (14.0-18.0); LYMPHOCYTES # (AUTO) 0.9 (1.0-3.2); LYMPHOCYTES % 6.8 % (18.0-39.1); MEAN CORPUSCULAR HEMOGLOBIN 30.6 pg (28-32); MEAN CORPUSCULAR HGB CONC 34.6 g/dL (31-35); MEAN CORPUSCULAR VOLUME 88.3 fL (81-99); MONOCYTES # (AUTO) 0.2 (0.2-0.8); MONOCYTES % 1.3 % (4.4-11.3); NEUTROPHILS # (AUTO) 11.9 (2.1-6.9); NEUTROPHILS % 87.4 % (38.7-80.0); RED BLOOD COUNT 2.91 x10e6/uL (4.3-5.7); RED CELL DISTRIBUTION WIDTH 15.4 % (11.7-14.4)
[2018-12-09 05:34] LABS: PLATELET COUNT 26 x10e3/uL (140-360)
--- NOTE | 2018-12-09 05:36 | Diagnostic Imaging Report ---
EXAMINATION: CHEST SINGLE (PORTABLE) INDICATION: ^pneumonia and on ventilator ^[id number] ^0430 ^Y COMPARISON: Chest CT dated 12/08/2018 FINDINGS: AP view TUBES and LINES: Right IJ catheter with tip projecting over inferior SVC. Endotracheal tube in place with tip at the level of the clavicles. NG tube extends beyond the inferior margin of the film. LUNGS: Limited by low lung volumes and body habitus. Bilateral airspace opacities and central vascular congestion. PLEURA: No pleural effusion or pneumothorax. HEART AND MEDIASTINUM: The cardiomediastinal silhouette is enlarged on this AP view.. BONES AND SOFT TISSUES: No acute osseous lesion. Soft tissues are unremarkable. UPPER ABDOMEN: No free air under the diaphragm. IMPRESSION: Bilateral airspace opacities, representing mild to moderate edema and/or pneumonia. Central vascular congestion and enlarged cardiomediastinal silhouette are exaggerated by low lung volumes and technique. Signed by: Dr. Yunier Campos MD on 12/09/2018 5:33 AM
[2018-12-09 05:50] LABS: ALBUMIN 1.4 g/dL (3.5-5.0); ALBUMIN/GLOBULIN RATIO 0.4 (0.8-2.0); CREATININE, SERUM 4.35 mg/dL (0.72-1.25)
[2018-12-09 05:53] LABS: CALCIUM 6.3 mg/dL (8.4-10.2)
[2018-12-09] MEDS: METOPROLOL TARTRATE 25 MG TAB PO SCH ×4 (05:53→23:59)
[2018-12-09] MEDS: METRONIDAZOLE 500MG/NS 100ML 100 ML IV SCH (05:53)
[2018-12-09] MEDS: INSULIN LISPRO 100 UNIT/1 ML 3ML VIAL SQ SCH ×3 (05:55→17:32)
[2018-12-09] MEDS: CEFEPIME 2 GM/NS 0.9% 100 ML 100 ML IV SCH (06:15)
[2018-12-09 06:31] LABS: BAND NEUTROPHILS % (MANUAL) 4 %; LYMPHOCYTES % (MANUAL) 6 % (19-48); MONOCYTES % (MANUAL) 1 % (3.4-9.0); NEUTROPHILS % (MANUAL) 89 % (40-74); NUCLEATED RED BLOOD CELLS 2; PLATELET ESTIMATE MARKEDLY DECREASED; PLATELET MORPHOLOGY COMMENT NORMAL; RBC MORPHOLOGY COMMENT NORMAL
--- NOTE | 2018-12-09 07:05 | NUR ---
ASSESSMENT: Spiritual concern Pt's anxious concerning 's illness. Pt's at bedside. Pt's has limited command of Persian language. Intervention: Provided hospitality, description of Spiritual Care services and information on how to reach director environmental, if needed. Outcome: Will follow as able. KADEN WREN Can [employer] Spiritual Care Department O: [phone] Pager: [phone] ([phone] number calling from)
--- NOTE | 2018-12-09 08:05 | NUR ---
LEFT VM FOR REGARDING CRITICAL CALCIUM.
[2018-12-09] MEDS: PANTOPRAZOLE 40 MG 10ML VIAL IV SCH (08:06)
[2018-12-09] MEDS ORDERED: CALCIUM GLUCONATE 10% INJ 0.465 MEQ/ML VIAL ONE (08:29)
[2018-12-09] MEDS ORDERED: CALCIUM GLUCONATE 10% INJ 4.65 MEQ in SODIUM CHLORIDE 0.9% 50ML 50 ML IV ONE (09:00)
[2018-12-09] MEDS: MEROPENEM 500MG/ NS 50ML 50 ML IV SCH ×2 (09:34→20:41)
[2018-12-09] MEDS ORDERED: VANCOMYCIN 1GM/NS 250 ML 250 ML IV ONE (14:00)
--- NOTE | 2018-12-09 14:30 | NUR ---
Received call from [facility] category planner Radha Daily [phone]. States to call her with any discharge needs.
[2018-12-09] MEDS: CHOLESTYRAMINE 4 GM PACKET PO SCH (16:10)
--- NOTE | 2018-12-09 18:44 | NUR ---
PT NOTED TO BE BACK IN AFIB 120-130'S PAGED MD PIERCE LEFT VM AWAITING CALL BACK
[2018-12-09] MEDS ORDERED: DIGOXIN INJ 0.25 MG/ML 2 ML AMP IV ONE (19:15)
[2018-12-09] MEDS ORDERED: SODIUM CHLORIDE 0.9% 250ML 250 ML IV SCH (19:15)
[2018-12-09] MEDS ORDERED: AMIODARONE HCL 900 MG in DEXTROSE 5% 500ML 500 ML IV SCH (19:15)
--- NOTE | 2018-12-09 20:14 | Progress Note ---
DATE: 12/09/2018 SUBJECTIVE: No major events overnight. Remains intubated on dialysis, sinus rhythm, borderline blood pressures. OBJECTIVE: VITAL SIGNS: Temperature 99.9, heart rate 105, respiratory rate 16, blood pressure 90/60, saturating 100% on mechanical ventilation. GENERAL: Middle-aged man, intubated and sedated. No acute distress. CARDIOVASCULAR: Tachycardic. Irregular. No murmurs, rubs, or gallops. LUNGS: Coarse breath sounds bilaterally. ABDOMEN: Soft, nondistended. NEURO/PSYCH: The patient is intubated and sedated. INPATIENT MEDICATIONS: Reviewed. LABORATORY DATA: Reviewed. TELEMETRY DATA: Reviewed, shows sinus tachycardia. ASSESSMENT: 1. Septic shock. 2. Multiorgan system failure. 3. Atrial fibrillation with rapid ventricular response, now converted to normal sinus rhythm. PLAN: Continue dialysis per Nephrology. The patient converted to normal sinus rhythm. We will give metoprolol if blood pressure tolerates to maintain sinus rhythm and control heart rate a little better. However, since the pressures have been borderline, he has not received any metoprolol. No anticoagulation given severe thrombocytopenia. Thank you for this consult. We will continue to follow. MD GENE Anna/SANTOS /[id number]
[2018-12-09] MEDS ORDERED: SODIUM CHLORIDE 0.9% 250ML 250 ML IV ONE ×2 (20:15→21:20)
--- NOTE | 2018-12-09 20:49 | NUR ---
Dr. Burks called for orders regarding sedation since pt's BP is not handling versed & fentanyl. Precedex ordered and 250 NS bolus
[2018-12-09] MEDS ORDERED: DEXMEDETOMIDINE 200MCG/NS 50ML 50 ML IV ONE (20:55)
[2018-12-09] MEDS: DEXMEDETOMIDINE 200MCG/NS 50ML 50 ML IV PRN (21:06)
[2018-12-10] VITALS (40 sets, daily range): BP systolic 70–142; BP diastolic 40–97
[2018-12-10] MEDS: INSULIN LISPRO 100 UNIT/1 ML 3ML VIAL SQ SCH ×4 (00:03→18:40)
[2018-12-10] MEDS: DEXMEDETOMIDINE 200MCG/NS 50ML 50 ML IV PRN ×3 (00:09→22:55)
[2018-12-10] MEDS: ACETAMINOPHEN 325 MG TAB PO PRN (02:50)
--- NOTE | 2018-12-10 04:04 | NUR ---
page out to Dr. Burks regarding pt's hypotension
[2018-12-10] MEDS ORDERED: NOREPINEPHRINE 8 MG/D5W 250 ML 250 ML ONE (04:27)
--- NOTE | 2018-12-10 04:30 | NUR ---
MD returned page, new order for norepi gtt & repeat blood cultures. called back and ordered stat ultrasound of gallbladder also
[2018-12-10] MEDS: NOREPINEPHRINE INJ 4MG/4ML 8 MG in DEXTROSE 5% 250ML 250 ML IV PRN (04:52)
[2018-12-10] MEDS: METOPROLOL TARTRATE 25 MG TAB PO SCH ×2 (05:03→12:00)
[2018-12-10 05:16] LABS: BASOPHILS % 0.2 % (0.0-1.0); EOSINOPHILS % 0.1 % (0.0-6.0); HEMATOCRIT 25.1 % (38.2-49.6); HEMOGLOBIN 8.5 g/dL (14.0-18.0); LYMPHOCYTES # (AUTO) 1.3 (1.0-3.2); LYMPHOCYTES % 11.4 % (18.0-39.1); MEAN CORPUSCULAR HEMOGLOBIN 30.8 pg (28-32); MEAN CORPUSCULAR HGB CONC 33.9 g/dL (31-35); MEAN CORPUSCULAR VOLUME 90.9 fL (81-99); MONOCYTES # (AUTO) 0.8 (0.2-0.8); MONOCYTES % 7.1 % (4.4-11.3); NEUTROPHILS # (AUTO) 9.1 (2.1-6.9); NEUTROPHILS % 78.9 % (38.7-80.0); RED BLOOD COUNT 2.76 x10e6/uL (4.3-5.7); RED CELL DISTRIBUTION WIDTH 15.8 % (11.7-14.4)
[2018-12-10 05:38] LABS: PLATELET COUNT 26 x10e3/uL (140-360)
[2018-12-10 05:40] LABS: ALBUMIN 1.6 g/dL (3.5-5.0); ALBUMIN/GLOBULIN RATIO 0.4 (0.8-2.0); ANION GAP 17.4 mmol/L (8-16); CALCIUM 7.2 mg/dL (8.4-10.2); CREATININE, SERUM 4.09 mg/dL (0.72-1.25); POTASSIUM 4.4 mmol/L (3.5-5.1)
--- NOTE | 2018-12-10 06:58 | Diagnostic Imaging Report ---
EXAMINATION: CHEST SINGLE (PORTABLE) INDICATION: ^Pneumonia and on ventilator ^[id number] ^0500 ^Y COMPARISON: 12/09/2018 FINDINGS: AP view TUBES and LINES: Stable right IJ central line, endotracheal tube, and nasogastric tube. LUNGS: Limited by overlying artifact, body habitus, low lung volumes. Pulmonary vascular congestion. Bilateral airspace opacities. PLEURA: No significant pleural effusion or pneumothorax. HEART AND MEDIASTINUM: The cardiomediastinal silhouette is enlarged. BONES AND SOFT TISSUES: No acute osseous lesion. Soft tissues are unremarkable. UPPER ABDOMEN: No free air under the diaphragm. IMPRESSION: No significant interval change from prior exam. Signed by: Dr. Yunier Campos MD on 12/10/2018 6:55 AM
--- NOTE | 2018-12-10 07:13 | Diagnostic Imaging Report ---
EXAM: Complete Abdominal Ultrasound INDICATION: ^ABD PAIN ^[id number] ^0616 ^Y COMPARISON: CT dated 12/08/2018 TECHNIQUE: Transverse and longitudinal images of the upper abdomen were obtained. FINDINGS: Liver: Size: 18.5 cm in the right midclavicular line, enlarged Appearance: Increased echogenicity, smooth contour Mass: No focal masses Spleen: Size: 13.4 cm in length, enlarged Echogenicity: Normal Mass: No focal masses Gallbladder: Stones/Sludge: Sludge present Wall: 0.5 cm Appearance: No pericholecystic fluid. Hydrops. Sonographic Valladares's Sign: Positive Bile Ducts: Intrahepatic Ducts: No dilatation Extrahepatic Ducts: Common bile duct measures 0.5 cm, no dilatation Pancreas: Not well visualized Right Kidney: Size: 12.6 cm Echogenicity: Normal Parenchymal thickness: Normal Collecting System: No hydronephrosis Stone: None Cyst/Mass: None Left Kidney: Size: 14.4 cm Echogenicity: Normal Parenchymal thickness: Normal Collecting System: No hydronephrosis Stone: None Cyst/Mass: None Vessels: Aorta: Not visualized Inferior Vena Cava: Visualized portions are normal Main Portal Vein: 1.3 cm, normal size with hepatopetal flow. Free Fluid: No ascites or pleural effusion IMPRESSION: Distended gallbladder, containing sludge, demonstrating mild wall thickening and positive Valladares sign. Acalculous cholecystitis cannot be excluded. HIDA scan can be obtained for further evaluation. Enlarged steatotic liver. Splenomegaly. Signed by: Dr. Yunier Campos MD on 12/10/2018 7:10 AM
[2018-12-10] MEDS ORDERED: PHYTONADIONE 10 MG/ML AMP SQ ONE (09:00)
[2018-12-10] MEDS: CHOLESTYRAMINE 4 GM PACKET PO SCH ×2 (09:33→19:34)
[2018-12-10] MEDS: MEROPENEM 500MG/ NS 50ML 50 ML IV SCH ×2 (09:33→20:41)
[2018-12-10] MEDS: PANTOPRAZOLE 40 MG 10ML VIAL IV SCH (09:33)
--- NOTE | 2018-12-10 12:18 | Progress Note ---
DATE: 12/10/2018 SUBJECTIVE: Mr. Hernandez remains in intensive care unit, intubated, and is lethargic. Family is at the bedside. OBJECTIVE: VITAL SIGNS: His temperature 101.4 has been running fever the whole time for the last 24 hours. His heart rate 116, respiration rate is 35, and blood pressure 111/82. GENERAL: The patient is lethargic. HEENT: Not icteric. NECK: Supple. CHEST: Clear. HEART: S1 and S2. No murmurs. ABDOMEN: Soft, distended with some discomfort right upper quadrant. LABORATORY DATA: White count is 11.48, hemoglobin 8.5, and platelet is down to 26. His sodium 137, potassium 4.4, creatinine 4.09. His cultures, no growth in 48 hours of a blood. IMPRESSION: 1. Sepsis. Discussed with Critical Care, agree with cholecystectomy. Continue with meropenem 500 q.12. 2. Liver disease, cirrhosis, probably alcoholism. Recheck CBC. Recheck Chem panel. 3. Thrombocytopenia from alcoholism and liver disease. 4. Sepsis and septic shock, severe. 5. Respiratory failure. 6. Chronic kidney disease. 7. Prognosis remains guarded. We will follow. MD JERRICA John/MODL /[id number]
--- NOTE | 2018-12-10 14:55 | NUR ---
SPOKE TO JAYDA IN ULTRASOUND MADE AWARE OF PATIENT PLATELET COUNT FOR PROCEDURE
[2018-12-10] MEDS ORDERED: MIDAZOLAM HCL 2 MG/2 ML VIAL IV STA (15:41)
--- NOTE | 2018-12-10 15:47 | NUR ---
STAT DOSE OF VERSED 1 MG GIVEN PER FOR AGITATION DURING PROCEDURE.
[2018-12-10] MEDS ORDERED: MIDAZOLAM HCL 2 MG/2 ML VIAL ONE (15:49)
--- NOTE | 2018-12-10 17:17 | Diagnostic Imaging Report ---
PROCEDURE: Cholecystostomy drainage catheter placement Procedural Personnel Attending physician(s): Karyn Maldonado MD Fellow physician(s): None Resident physician(s): None Advanced practice provider(s): None Pre-procedure diagnosis: Acalculous cholecystitis Post-procedure diagnosis: Same Indication: Sepsis Additional clinical history: None Complications: No immediate complications. IMPRESSION: Percutaneous placement of a 12 [place]ian drainage catheter into the gallbladder via an anterior transhepatic approach. 20cc bilious fluid aspirated and sent for fluid culture. Plan: Tube to gravity drainage. Flush 10cc NS every shift. PROCEDURE SUMMARY: - Cholecystostomy drainage catheter placement under ultrasound guidance - Additional procedure(s): None PROCEDURE DETAILS: Pre-procedure Consent: Informed consent for the procedure including risks, benefits and alternatives was obtained and time-out was performed prior to the procedure. Preparation: The site was prepared and draped using maximal sterile barrier technique including cutaneous antisepsis. Anesthesia/sedation Level of anesthesia/sedation: No sedation (patient already intubated and sedated in ICU) Anesthesia/sedation administered by: Independent trained observer under attending supervision with continuous monitoring of the patient?s level of consciousness and physiologic status Drainage catheter placement The patient was positioned supine. Initial imaging was performed. Local anesthesia was administered. The fluid collection was accessed using an access needle followed by wire insertion and serial dilation and a drainage catheter was placed. Position of the drainage catheter within the fluid collection was confirmed. - Initial imaging findings: Distended gallbladder containing sludge - Drainage catheter placed: 12Fr Uresil - External catheter securement: Non-absorbable suture - Post-drainage imaging findings: Partial drainage of the fluid collection Contrast Contrast agent: None Contrast volume (mL): 0 Radiation Dose None. Ultrasound guidance only. Additional Details Additional description of procedure: None Equipment details: None Specimens removed: Aspirated fluid was sent for analysis. Estimated blood loss (mL): Less than 10 Standardized report: [email or web address] Attestation Signer name: Karyn Maldonado MD I attest that I was present for the entire procedure. I reviewed the stored images and agree with the report as written. Signed by: Karyn Maldonado MD on 12/10/2018 5:13 PM
[2018-12-10] MEDS: AMIODARONE HCL 200 MG TAB PO SCH (17:30)
[2018-12-10] MEDS: SODIUM CHLORIDE 0.9% 1000ML 1,000 ML IV SCH (19:34)
--- NOTE | 2018-12-10 23:35 | Progress Note ---
DATE: 12/10/2018 Cardiology Progress Note SUBJECTIVE: The patient had atrial fibrillation with RVR overnight, started on IV amiodarone, now rate controlled. Remains intubated and sedated. OBJECTIVE: VITAL SIGNS: Temperature 99.7, pulse 82, respiratory rate 22, blood pressure 92/66, saturating 99% on mechanical ventilation. GENERAL: Middle-aged man, intubated, sedated. CARDIOVASCULAR: Irregular rate and rhythm. No murmurs, rubs, or gallops. LUNGS: Coarse breath sounds bilaterally. ABDOMEN: Soft, nondistended. NEURO AND PSYCH: Intubated and sedated, not responsive. INPATIENT MEDICATIONS: Reviewed. LABORATORY DATA: Reviewed. TELEMETRY DATA: Reviewed and shows rate controlled atrial fibrillation. ASSESSMENT: 1. Septic shock. 2. Multiorgan failure. 3. Atrial fibrillation with rapid ventricular response. PLAN: The patient is now rate controlled. We will chemical cell changer to oral amiodarone 200 mg b.i.d. No anticoagulation given severe thrombocytopenia. Thank you for this consult. We will continue to follow. MD GENE Anna/SANTOS /[id number]
[2018-12-11] VITALS (65 sets, daily range): BP systolic 83–139; BP diastolic 50–116
[2018-12-11] MEDS: INSULIN LISPRO 100 UNIT/1 ML 3ML VIAL SQ SCH ×4 (00:31→17:32)
[2018-12-11] MEDS: DEXMEDETOMIDINE 200MCG/NS 50ML 50 ML IV PRN ×4 (01:30→20:29)
[2018-12-11] MEDS: ACETAMINOPHEN 325 MG TAB PO PRN ×2 (05:56→16:13)
[2018-12-11 06:19] LABS: BASOPHILS % 0.2 % (0.0-1.0); EOSINOPHILS # (AUTO) 0.1 (0.0-0.4); EOSINOPHILS % 0.5 % (0.0-6.0); HEMATOCRIT 25.9 % (38.2-49.6); HEMOGLOBIN 8.8 g/dL (14.0-18.0); LYMPHOCYTES # (AUTO) 3.1 (1.0-3.2); LYMPHOCYTES % 17.4 % (18.0-39.1); MEAN CORPUSCULAR HEMOGLOBIN 30.4 pg (28-32); MEAN CORPUSCULAR VOLUME 89.6 fL (81-99); MONOCYTES # (AUTO) 2.4 (0.2-0.8); MONOCYTES % 13.6 % (4.4-11.3); NEUTROPHILS # (AUTO) 11.4 (2.1-6.9); NEUTROPHILS % 64.2 % (38.7-80.0); PLATELET COUNT 79 x10e3/uL (140-360); RED BLOOD COUNT 2.89 x10e6/uL (4.3-5.7)
[2018-12-11 06:30] LABS: INR 1.43
[2018-12-11 06:47] LABS: ALBUMIN 1.7 g/dL (3.5-5.0); ALBUMIN/GLOBULIN RATIO 0.4 (0.8-2.0); ANION GAP 17.7 mmol/L (8-16); CREATININE, SERUM 5.11 mg/dL (0.72-1.25); POTASSIUM 4.7 mmol/L (3.5-5.1)
[2018-12-11 08:44] LABS: FERRITIN 3660.5 ng/mL (21.81-274.66)
[2018-12-11] MEDS ORDERED: VANCOMYCIN 1GM/NS 250 ML 250 ML IV ONE (13:00)
[2018-12-11] MEDS: AMIODARONE HCL 200 MG TAB PO SCH ×2 (13:03→16:13)
[2018-12-11] MEDS: MEROPENEM 500MG/ NS 50ML 50 ML IV SCH ×2 (13:03→21:30)
[2018-12-11] MEDS: PANTOPRAZOLE 40 MG 10ML VIAL IV SCH (13:03)
--- NOTE | 2018-12-11 13:03 | NUR ---
PATIENT WITH LARGE AMOUNT OF LIQUID STOOL. RECTAL TUBE INSERTED.
[2018-12-11] MEDS: CHOLESTYRAMINE 4 GM PACKET PO SCH ×2 (13:39→20:17)
--- NOTE | 2018-12-11 13:59 | Diagnostic Imaging Report ---
EXAMINATION: CHEST SINGLE (PORTABLE) INDICATION: Respiratory failure COMPARISON: Chest radiograph of 12/10/2018 FINDINGS: LINES/TUBES:Endotracheal tube terminates approximately 4 cm above the gabby. Right IJ central venous catheter terminates in the superior vena cava. Enteric tube projects below the diaphragm with tip not seen. EKG leads overlie the chest. LUNGS:The lung volumes are low. There is left basilar opacity silhouetting the left scarlet diaphragm. There is perihilar fullness and indistinctness of the pulmonary vasculature. PLEURA:No pleural effusion or pneumothorax. MEDIASTINUM:The cardiomediastinal silhouette appears unchanged in size and shape. Atherosclerotic calcifications of the thoracic aorta. BONES/SOFT TISSUES:No acute osseous injury. ABDOMEN:No free air under the diaphragm. IMPRESSION: Lines and tubes as above. Low lung volumes and vascular congestion. Patchy opacity at the left lung base most likely represents subsegmental atelectasis. Signed by: Karyn Maldonado MD on 12/11/2018 1:56 PM
--- NOTE | 2018-12-11 14:06 | NUR ---
Nutrition Intervention Note RD Recommendation(s) for Physician (12/11): -TF recommendation when medically feasible (when levo is less than 5 mcg/min): Trickle feeds of Vital HP at 10 ml/hr advance as tolerated to goal rate when pt is no longer on pressors to 65 ml/hr with 30 ml water flushed every 4 hours. (1560 kcal, 1360 gram protein, 1304 ml of water) -IVF management and additional flushes per MD. -ADAT to cardiac, 1800 ADA diet per MD after extubation. Plan of Care: RD following, monitoring for tolerance and adequacy. EN recs. Nutrition reason for involvement: Follow up RD Assessment 12/11: Follow up: Pt was seen in the ICU, remains ventilated and sedated on precedex. Pt is currently on pressor support, levo at 5 mcg/min. Recommend to change formula to Vital HP and only trickle feed pt at this time, reported this to the nurse. Pt is still on Glucerna 1.5, she stated the MD did not want to change formula. Spoke about pt in rounds, possible extubation weening trial or Friday. Pt was seen receiving dialysis and is at 30 ml/hr of the TF. Will continue to monitor. 12/08: 58 YOM admitted for Afib with PMH listed below. Pt is intubated and sedated on fentanyl, no pressor support or propofol. Family was at bedside, they reported the pt didnt eat for about 4 days prior to admission (only consumed small portions d/t decreased appetite. They stated there has been no unintentional weight loss recently. Pt appears well-nourished. Provided TF recommendations above, Vital AF is approparite d/t pt having DM and is not on propofol or pressors. Per nurse- no plans to wean today. Pt was admitted here last week and d/c on 12/02. Pt is the same weight as last week. Will continue to monitor. Principal Problems/Diagnoses: Afib PMH: history of diabetes and respiratory failure, lactic acidosis, peripheral neuropathy, BPH, new onset atrial fibrillation, vitamin D deficiency GI: LBM: 12/11 Abd: round Skin: No pressure ulcer recorded in FS, No edema Labs: 12/11: POC GM 121-190 12/08: Na 130, Cl 94, CO2 21, BUN 95, Crea 4.67, Gluc 126, Ca 6.5, tbili 8.6, AST 211, ALT 117, Creat kinase 213, B-Nery peptide 515.3, Amylase 345, Lipase 378 Meds: protonix, abx, lispro, fentanyl, amiodarone, zofran, levo, fentanyl per EMR, versed, heparin IVF: NS at 30 ml/hr Ht: 70 in Wt: 220 lbs 12/11: 255 lbs BMI:31.6 kg/m^2 IBW:166 lbs Malnutrition Evaluation 12/08 The patient does not meet criteria for a specified degree of malnutrition at this time. Will re-evaluate at follow-up as appropriate. Energy intake: <50% of estimated energy requirements for >5 days Weight loss: no recent weight loss Fat loss: none Muscle loss: none Supporting Evidence: Fluid accumulation: none Nutrition Prescription (Diet Order): NPO Estimated Nutritional Needs: Calories: 2038-7035 (22-25 kcal/kg/day) Weight used : IBW ( 75 kg) -intubated Protein : 112-150 (1.5-2 gram/kg/day ) Weight used: IBW (75 kg) -intubated Diet Adequacy: Not meeting calorie needs, Not meeting protein needs-pt is receiving 1080 kcal, 89 gram protein Diet Education Needs Assessment: Diet education not indicated, patient on temporary/transition diet. Nutrition Care Level: MOD Nutrition Diagnosis: Inadequate energy intake related to medical condition as evidenced by pt being NPO and ventilated. Goal: Patient will meet 75-100% of estimated needs by follow up Progress: progressing Interventions: - carb, mineral (sodium), fat, cholesterol modified diet, Composition, Rate, Route, IVF, Prescription medications, Collaboration with other providers Monitoring/Evaluation: -Total energy intake, Total protein intake, Formula/Solution, IVF, Prescription medication, Modified diet Signed: Jeannie Bolaños RD, LD
--- NOTE | 2018-12-11 14:15 | NUR ---
Recommend to only feed when dynamically stable and MAPS higher than 65. Addendum: 12/11/18 at 1527 by Jeannie BOYCE 136 grams of protein* not 1360
--- NOTE | 2018-12-11 20:16 | Progress Note ---
DATE: 12/11/2018 Cardiology Progress Note SUBJECTIVE: No major events overnight. OBJECTIVE: VITAL SIGNS: Temperature 99.2, pulse 89, respiratory rate 28, blood pressure 100/91, and saturating 100% on mechanical ventilation. GENERAL: Middle-aged man, intubated, sedated, well developed, well nourished. CARDIOVASCULAR: Irregular rate and rhythm. No murmurs, rubs, or gallops. LUNGS: Coarse breath sounds bilaterally, mechanical breath sounds due to mechanical ventilation. ABDOMEN: Soft, nondistended. NEURO AND PSYCH: Intubated and sedated. INPATIENT MEDICATIONS: Reviewed. LABORATORY DATA: Reviewed, notable for improved platelet count of 79, now post transfusion. IMAGING DATA: Reviewed. Chest x-ray shows atelectasis and vascular congestion in low lung volumes. TELEMETRY DATA: Reviewed, shows rate controlled atrial fibrillation. ASSESSMENT AND PLAN: 1. Septic shock. 2. Multiorgan dysfunction. 3. Atrial fibrillation with rapid ventricular response. Continue oral amiodarone, remains rate controlled. No anticoagulation given. 4. Severe thrombocytopenia. Thank you for this consult. We will continue to follow. MD GENE Anna/SANTOS /[id number]
[2018-12-11] MEDS: FENTANYL CITRATE INJ 2,000 MCG in SODIUM CHLORIDE 0.9% 250ML 210 ML IV PRN (23:10)
[2018-12-12] VITALS (48 sets, daily range): BP systolic 79–141; BP diastolic 47–104
[2018-12-12] MEDS: NOREPINEPHRINE INJ 4MG/4ML 8 MG in DEXTROSE 5% 250ML 250 ML IV PRN ×3 (00:01→02:20)
[2018-12-12] MEDS: DEXMEDETOMIDINE 200MCG/NS 50ML 50 ML IV PRN ×9 (00:20→23:25)
[2018-12-12] MEDS: INSULIN LISPRO 100 UNIT/1 ML 3ML VIAL SQ SCH ×4 (00:33→18:16)
[2018-12-12] MEDS: FENTANYL CITRATE INJ 2,000 MCG in SODIUM CHLORIDE 0.9% 250ML 210 ML IV PRN ×2 (01:00→22:10)
[2018-12-12] MEDS: SODIUM CHLORIDE 0.9% 1000ML 1,000 ML IV SCH ×2 (04:05→21:54)
[2018-12-12 05:24] LABS: BASOPHILS % 0.2 % (0.0-1.0); EOSINOPHILS # (AUTO) 0.1 (0.0-0.4); EOSINOPHILS % 0.6 % (0.0-6.0); HEMATOCRIT 24.8 % (38.2-49.6); HEMOGLOBIN 8.3 g/dL (14.0-18.0); LYMPHOCYTES % 23.8 % (18.0-39.1); MEAN CORPUSCULAR HEMOGLOBIN 30.6 pg (28-32); MEAN CORPUSCULAR HGB CONC 33.5 g/dL (31-35); MEAN CORPUSCULAR VOLUME 91.5 fL (81-99); MONOCYTES # (AUTO) 0.5 (0.2-0.8); MONOCYTES % 3.8 % (4.4-11.3); NEUTROPHILS # (AUTO) 8.7 (2.1-6.9); NEUTROPHILS % 69.3 % (38.7-80.0); PLATELET COUNT 82 x10e3/uL (140-360); RED BLOOD COUNT 2.71 x10e6/uL (4.3-5.7); RED CELL DISTRIBUTION WIDTH 15.9 % (11.7-14.4)
[2018-12-12 05:35] LABS: INR 1.31; PROTHROMBIN TIME 16.9 seconds (11.9-14.5)
[2018-12-12 05:42] LABS: ALBUMIN 1.6 g/dL (3.5-5.0); ALBUMIN/GLOBULIN RATIO 0.4 (0.8-2.0); ANION GAP 18.6 mmol/L (8-16); CALCIUM 7.1 mg/dL (8.4-10.2); CREATININE, SERUM 3.98 mg/dL (0.72-1.25); POTASSIUM 4.6 mmol/L (3.5-5.1)
[2018-12-12] MEDS: ACETAMINOPHEN 325 MG TAB PO PRN ×3 (05:48→20:00)
[2018-12-12 06:12] LABS: MAGNESIUM 2.4 MG/DL (1.3-2.1); PHOSPHORUS 5.3 MG/DL (2.3-4.7)
--- NOTE | 2018-12-12 07:51 | Diagnostic Imaging Report ---
Examination: Single AP view of the chest. COMPARISON: 12/11/2018 INDICATION: Atrial fibrillation DISCUSSION: Lines/tubes: Endotracheal tube and enteric tube, and right IJ catheter unchanged. Lungs: Hypoinflated lungs. Central venous congestion. Pleura: No pleural effusion or pneumothorax. Heart and mediastinum: Mild cardiomegaly. Bones and soft tissues: No acute bony abnormalities. IMPRESSION: Mild cardiomegaly with central venous congestion Signed by: Dr. Alban Alberto M.D. on 12/12/2018 7:47 AM
[2018-12-12] MEDS: PANTOPRAZOLE 40 MG 10ML VIAL IV SCH (08:37)
[2018-12-12] MEDS: MEROPENEM 500MG/ NS 50ML 50 ML IV SCH ×2 (08:37→22:23)
[2018-12-12] MEDS: AMIODARONE HCL 200 MG TAB PO SCH ×2 (08:37→16:01)
[2018-12-12 08:52] LABS: LYMPHOCYTES % (MANUAL) 12 % (19-48); MONOCYTES % (MANUAL) 4 % (3.4-9.0); NEUTROPHILS % (MANUAL) 84 % (40-74); PLATELET ESTIMATE MARKEDLY DECREASED; PLATELET MORPHOLOGY COMMENT NORMAL; RBC MORPHOLOGY COMMENT NORMAL
[2018-12-12] MEDS: CHOLESTYRAMINE 4 GM PACKET PO SCH ×2 (10:41→22:22)
--- NOTE | 2018-12-12 14:55 | Progress Note ---
DATE: 12/12/2018 Cardiology Progress Note SUBJECTIVE: The patient remains intubated and sedated. He is on Levophed 5 mcg/minute, receiving hemodialysis at this time. OBJECTIVE: VITAL SIGNS: Temperature 100.1 degrees, pulse 80, respiratory rate 20, blood pressure 89/62, and oxygen saturation 100% on mechanical ventilation. GENERAL: Intubated, sedated, no acute distress. LUNGS: Coarse breath sounds bilaterally. CARDIOVASCULAR: Normal rate. Irregularly irregular. No murmur. Normal S1 and S2. ABDOMEN: Soft and nontender. EXTREMITIES: No edema. CARDIAC MEDICATIONS: Amiodarone 200 mg p.o. b.i.d. and Levophed 5 mcg/minute. LABORATORY DATA: WBC 12.55, hemoglobin 8.3, hematocrit 24.8, and platelets 82. Sodium 138, potassium 4.6, chloride 103, CO2 21, BUN 75, and creatinine 3.98. TELEMETRY: Atrial fibrillation. IMPRESSION: 1. Septic shock. 2. Multiorgan dysfunction. 3. Atrial fibrillation, rate controlled. 4. Thrombocytopenia. RECOMMENDATIONS: Continue current cardiac medications. Continue supportive care. No anticoagulation at this time given thrombocytopenia. Thank you for this consult. We will continue to follow. Lisbeth Saleh MD ABS/MODL /[id number]
[2018-12-12] MEDS ORDERED: VANCOMYCIN 1GM/NS 250 ML 250 ML IV ONE (18:30)
[2018-12-13] VITALS (28 sets, daily range): BP systolic 88–168; BP diastolic 59–126
[2018-12-13] MEDS: INSULIN LISPRO 100 UNIT/1 ML 3ML VIAL SQ SCH ×4 (00:17→18:14)
[2018-12-13] MEDS: ACETAMINOPHEN 325 MG TAB PO PRN ×2 (01:13→08:58)
[2018-12-13] MEDS: DEXMEDETOMIDINE 200MCG/NS 50ML 50 ML IV PRN ×3 (02:11→22:30)
[2018-12-13 05:58] LABS: BASOPHILS % 0.2 % (0.0-1.0); EOSINOPHILS # (AUTO) 0.1 (0.0-0.4); EOSINOPHILS % 0.5 % (0.0-6.0); HEMATOCRIT 24.5 % (38.2-49.6); HEMOGLOBIN 7.8 g/dL (14.0-18.0); LYMPHOCYTES # (AUTO) 2.8 (1.0-3.2); LYMPHOCYTES % 21.5 % (18.0-39.1); MEAN CORPUSCULAR HEMOGLOBIN 30.2 pg (28-32); MEAN CORPUSCULAR HGB CONC 31.8 g/dL (31-35); MONOCYTES # (AUTO) 0.6 (0.2-0.8); MONOCYTES % 4.8 % (4.4-11.3); NEUTROPHILS # (AUTO) 9.2 (2.1-6.9); NEUTROPHILS % 71.1 % (38.7-80.0); PLATELET COUNT 85 x10e3/uL (140-360); RED BLOOD COUNT 2.58 x10e6/uL (4.3-5.7); RED CELL DISTRIBUTION WIDTH 15.9 % (11.7-14.4)
[2018-12-13 06:52] LABS: ALBUMIN 1.8 g/dL (3.5-5.0); ALBUMIN/GLOBULIN RATIO 0.4 (0.8-2.0); ANION GAP 16.7 mmol/L (8-16); CALCIUM 7.4 mg/dL (8.4-10.2); CREATININE, SERUM 3.8 mg/dL (0.72-1.25); POTASSIUM 4.7 mmol/L (3.5-5.1)
[2018-12-13] MEDS: MIDAZOLAM HCL 25 MG in SODIUM CHLORIDE 0.9% 50ML 45 ML IV PRN ×3 (07:30→16:30)
[2018-12-13] MEDS: AMIODARONE HCL 200 MG TAB PO SCH ×2 (07:31→16:30)
[2018-12-13] MEDS: MEROPENEM 500MG/ NS 50ML 50 ML IV SCH ×2 (07:31→21:58)
[2018-12-13] MEDS: PANTOPRAZOLE 40 MG 10ML VIAL IV SCH (07:31)
--- NOTE | 2018-12-13 07:33 | NUR ---
PATIENT AGITATED AND RESTLESS. ASKED FAMILY TO STEP AWAY FROM BED IN ORDER TO KEEP HIM CALM AND INCREASED SEDATION. HR 130'S BP 158/126, RR30
--- NOTE | 2018-12-13 07:44 | NUR ---
ADDED VERSED TO CURRENT SEDATION OF PRECEDEX AND FENTANYL
[2018-12-13] MEDS ORDERED: VANCOMYCIN 1GM/NS 250 ML 250 ML IV ONE (09:45)
[2018-12-13] MEDS: CHOLESTYRAMINE 4 GM PACKET PO SCH ×2 (10:35→21:58)
[2018-12-13] MEDS: SODIUM CHLORIDE 0.9% 1000ML 1,000 ML IV SCH (12:38)
[2018-12-13] MEDS ORDERED: ALBUTEROL/IPRATROPIUM 3 ML NEB ONE (14:24)
[2018-12-13] MEDS ORDERED: ALBUTEROL/IPRATROPIUM 3 ML NEB NEB NR (14:30)
[2018-12-13] MEDS: IPRATROPIUM BROMIDE 0.02% 2.5 ML NEB NEB SCH ×2 (15:00→22:00)
--- NOTE | 2018-12-13 15:36 | Progress Note ---
DATE: 12/13/2018 Cardiology Progress Note SUBJECTIVE: The patient remains intubated and sedated. However, he is able deny chest pain or shortness of breath. He did not tolerate weaning from mechanical ventilation today. OBJECTIVE: VITAL SIGNS: Temperature 99.9 degrees, pulse 88, respiratory rate 22, blood pressure 111/83, and oxygen saturation 98% on mechanical ventilation. GENERAL: Intubated, sedated, no acute distress. LUNGS: Coarse breath sounds bilaterally. CARDIOVASCULAR: Tachycardic. Irregularly irregular. No murmur. Normal S1, S2. ABDOMEN: Soft, nontender. EXTREMITIES: No edema. CARDIAC MEDICATIONS: Amiodarone 200 mg p.o. b.i.d. LABORATORY DATA: WBC 12.9, hemoglobin 7.8, hematocrit 24.5, platelets 85. Sodium 138, potassium 4.7, chloride 104, CO2 22, BUN 64, creatinine 3.8. TELEMETRY: Atrial fibrillation with borderline rate control. IMPRESSION: 1. Septic shock. 2. Multiorgan dysfunction. 3. Atrial fibrillation with borderline rate control. 4. Thrombocytopenia. RECOMMENDATIONS: Continue current cardiac medications. Continue supportive care. No anticoagulation at this time given thrombocytopenia. Antibiotics per primary service. Thank you for this consult. We will continue to follow. Lisbeth Saleh MD ABS/MODL /[id number]
[2018-12-13] MEDS ORDERED: ALBUTEROL/IPRATROPIUM 3 ML NEB NEB SCH (19:00)
[2018-12-13] MEDS ORDERED: SODIUM CHLORIDE 0.9% 250ML 250 ML ONE (21:53)
[2018-12-13] MEDS ORDERED: DEXMEDETOMIDINE 200MCG/NS 50ML 50 ML IV ONE (21:54)
[2018-12-13] MEDS: FENTANYL CITRATE INJ 2,000 MCG in SODIUM CHLORIDE 0.9% 250ML 210 ML IV PRN (21:59)
[2018-12-13] MEDS: ACETYLCYSTEINE 200 MG/ML 4ML VIAL INH SCH (22:00)
[2018-12-14] VITALS (26 sets, daily range): BP systolic 94–152; BP diastolic 73–97
[2018-12-14] MEDS: MIDAZOLAM HCL 25 MG in SODIUM CHLORIDE 0.9% 50ML 45 ML IV PRN ×2
[2018-12-14] MEDS: INSULIN LISPRO 100 UNIT/1 ML 3ML VIAL SQ SCH ×4 (00:21→18:01)
[2018-12-14] MEDS: DEXMEDETOMIDINE 200MCG/NS 50ML 50 ML IV PRN ×2 (02:36→06:31)
[2018-12-14 05:10] LABS: BASOPHILS % 0.2 % (0.0-1.0); EOSINOPHILS # (AUTO) 0.1 (0.0-0.4); EOSINOPHILS % 0.5 % (0.0-6.0); HEMATOCRIT 22.7 % (38.2-49.6); HEMOGLOBIN 7.4 g/dL (14.0-18.0); LYMPHOCYTES # (AUTO) 1.9 (1.0-3.2); LYMPHOCYTES % 14.5 % (18.0-39.1); MEAN CORPUSCULAR HEMOGLOBIN 30.7 pg (28-32); MEAN CORPUSCULAR HGB CONC 32.6 g/dL (31-35); MEAN CORPUSCULAR VOLUME 94.2 fL (81-99); MONOCYTES # (AUTO) 0.7 (0.2-0.8); MONOCYTES % 5.3 % (4.4-11.3); NEUTROPHILS % 77.6 % (38.7-80.0); PLATELET COUNT 96 x10e3/uL (140-360); RED BLOOD COUNT 2.41 x10e6/uL (4.3-5.7)
[2018-12-14 05:31] LABS: ALBUMIN 1.7 g/dL (3.5-5.0); ALBUMIN/GLOBULIN RATIO 0.4 (0.8-2.0); ANION GAP 17.2 mmol/L (8-16); CALCIUM 7.2 mg/dL (8.4-10.2); CREATININE, SERUM 4.74 mg/dL (0.72-1.25); POTASSIUM 5.2 mmol/L (3.5-5.1)
[2018-12-14] MEDS ORDERED: SODIUM CHLORIDE 0.9% 250ML 250 ML IV ONE (07:15)
[2018-12-14] MEDS: ACETYLCYSTEINE 200 MG/ML 4ML VIAL INH SCH (07:25)
[2018-12-14] MEDS: LEVALBUTEROL HCL SOLN NEBU 0.63 MG/3 ML NEB INH PRN ×2 (07:25→16:00)
[2018-12-14] MEDS: IPRATROPIUM BROMIDE 0.02% 2.5 ML NEB NEB SCH ×3 (07:25→23:00)
--- NOTE | 2018-12-14 07:36 | Diagnostic Imaging Report ---
EXAMINATION: CHEST SINGLE (PORTABLE) INDICATION: ^on ventilator with bilateral pneumonia ^[id number] ^0500 ^Y COMPARISON: 12/12/2018 FINDINGS: AP view TUBES and LINES: Stable endotracheal tube, nasogastric tube, and right IJ catheter. LUNGS: Limited by body habitus and low lung volumes. Bilateral airspace opacities. PLEURA: No significant pleural effusion or pneumothorax. HEART AND MEDIASTINUM: The cardiomediastinal silhouette is enlarged, accentuated by technique and low lung volumes.. BONES AND SOFT TISSUES: No acute osseous lesion. Soft tissues are unremarkable. UPPER ABDOMEN: No free air under the diaphragm. IMPRESSION: Bilateral airspace opacities, representing edema and/or pneumonia, slightly worsened when compared to prior x-ray. Signed by: Dr. Yunier Campos MD on 12/14/2018 7:32 AM
[2018-12-14] MEDS ORDERED: ACETAMINOPHEN 325 MG TAB PO ONE (07:45)
[2018-12-14] MEDS: PANTOPRAZOLE 40 MG 10ML VIAL IV SCH (08:07)
[2018-12-14] MEDS: CHOLESTYRAMINE 4 GM PACKET PO SCH ×2 (08:07→20:16)
[2018-12-14] MEDS ORDERED: VANCOMYCIN 1GM/NS 250 ML 250 ML IV ONE (09:30)
[2018-12-14] MEDS: AMIODARONE HCL 200 MG TAB PO SCH ×2 (10:37→16:52)
[2018-12-14] MEDS ORDERED: SODIUM CHLORIDE 0.9% 250ML 500 ML ONE (10:51)
[2018-12-14] MEDS: CEFTRIAXONE SOD 1 GM/NS 50 ML 50 ML IV SCH (12:32)
--- NOTE | 2018-12-14 12:37 | NUR ---
PT EXTUBATED AT THIS TIME,
[2018-12-14 13:30] LABS: B-TYPE NATRIURETIC PEPTIDE2 1137.4 pg/mL (0-100)
[2018-12-14 13:37] LABS: ABG HCO3 31 mmol/L (23-28); ABG PCO2 39 mmHg (41-51); ABG PO2 127 mmHg (80-105)
--- NOTE | 2018-12-14 18:00 | Progress Note ---
DATE: 12/14/2018 Cardiology Progress Note SUBJECTIVE: The patient is extubated today, asymptomatic. OBJECTIVE: VITAL SIGNS: Temperature is 99, heart rate is 101, respiratory rate is 19, blood pressure is 133/81, ox saturation is 100% on 2 L nasal cannula.. GENERAL: Well appearing. No apparent distress. CARDIOVASCULAR: Irregularly irregular, tachycardic. LUNGS: Diminished breath sounds at bases. ABDOMEN: Soft, nontender, nondistended. EXTREMITIES: Trace edema. NEUROLOGIC: No focal deficits noted. LABORATORY DATA: Reviewed. Hemoglobin is 7.4 creatinine is 4.7. TELEMETRY: Monitoring revealed atrial fibrillation with rapid ventricular response. IMPRESSION: 1. Sepsis. 2. Multiorgan failure. 3. Atrial fibrillation, right ventricular response. 4. Thrombocytopenia. RECOMMENDATIONS: Continue amiodarone for rate and rhythm control. We will add metoprolol for better heart rate reduction. Continue all other supportive care per primary team. No anticoagulation, given his significant thrombocytopenia. Buck Holguin DO BM/MODL /[id number]
[2018-12-14] MEDS: METOPROLOL TARTRATE 25 MG TAB PO SCH (18:24)
[2018-12-14] MEDS: ACETAMINOPHEN 325 MG TAB PO PRN (22:25)
[2018-12-15] VITALS (25 sets, daily range): BP systolic 118–153; BP diastolic 52–110
[2018-12-15] MEDS: INSULIN LISPRO 100 UNIT/1 ML 3ML VIAL SQ SCH ×4 (02:24→18:24)
[2018-12-15 04:57] LABS: BASOPHILS % 0.1 % (0.0-1.0); EOSINOPHILS % 0.3 % (0.0-6.0); HEMOGLOBIN 9.1 g/dL (14.0-18.0); LYMPHOCYTES # (AUTO) 1.6 (1.0-3.2); LYMPHOCYTES % 12.6 % (18.0-39.1); MEAN CORPUSCULAR HEMOGLOBIN 29.9 pg (28-32); MEAN CORPUSCULAR HGB CONC 32.5 g/dL (31-35); MEAN CORPUSCULAR VOLUME 92.1 fL (81-99); MONOCYTES # (AUTO) 0.9 (0.2-0.8); MONOCYTES % 7.1 % (4.4-11.3); NEUTROPHILS # (AUTO) 9.7 (2.1-6.9); NEUTROPHILS % 78.8 % (38.7-80.0); PLATELET COUNT 102 x10e3/uL (140-360); RED BLOOD COUNT 3.04 x10e6/uL (4.3-5.7); RED CELL DISTRIBUTION WIDTH 17.1 % (11.7-14.4)
[2018-12-15 05:28] LABS: ALBUMIN 1.8 g/dL (3.5-5.0); ALBUMIN/GLOBULIN RATIO 0.4 (0.8-2.0); CALCIUM 7.3 mg/dL (8.4-10.2); CREATININE, SERUM 3.78 mg/dL (0.72-1.25)
[2018-12-15] MEDS: IPRATROPIUM BROMIDE 0.02% 2.5 ML NEB NEB SCH ×3 (07:12→23:00)
[2018-12-15] MEDS: METOPROLOL TARTRATE 25 MG TAB PO SCH (08:25)
[2018-12-15] MEDS: AMIODARONE HCL 200 MG TAB PO SCH ×2 (08:25→16:43)
[2018-12-15] MEDS: ACETAMINOPHEN 325 MG TAB PO PRN (08:25)
[2018-12-15] MEDS: PANTOPRAZOLE 40 MG 10ML VIAL IV SCH (08:25)
[2018-12-15] MEDS ORDERED: VANCOMYCIN 1GM/NS 250 ML 250 ML IV ONE (09:30)
[2018-12-15 09:53] LABS: PLATELET ESTIMATE MODERATELY DECREASED
[2018-12-15 09:54] LABS: RBC MORPHOLOGY COMMENT NORMAL
[2018-12-15] MEDS: CEFTRIAXONE SOD 1 GM/NS 50 ML 50 ML IV SCH (12:12)
--- NOTE | 2018-12-15 12:30 | Progress Note ---
DATE: 12/15/2018 Cardiology Progress Note SUBJECTIVE: The patient is feeling overall better. Denies any chest pain. OBJECTIVE: VITAL SIGNS: Temperature is 99.8, heart rate is 112, oxygen saturation is 99% on 2 L nasal cannula, respirations are 19, and blood pressure is 138/93. GENERAL: He is a chronically ill-appearing man, lying comfortably in bed, no apparent distress. CARDIOVASCULAR: He is tachycardic. Regular rhythm. No significant murmurs heard. LUNGS: Diminished breath sounds at bases. ABDOMEN: Soft, nontender, and nondistended. EXTREMITIES: Trace edema. CARDIOVASCULAR MEDICATIONS: Reviewed. LABORATORY DATA: Reviewed. Hemoglobin is 9.1. Creatinine is 3.78. TELEMETRY: Monitoring revealed atrial fibrillation, right ventricular response. IMPRESSION: 1. Sepsis. 2. Multiorgan failure. 3. Atrial fibrillation with rapid ventricular response. 4. Thrombocytopenia. RECOMMENDATIONS: Continue amiodarone. Increase metoprolol for better heart rate reduction. Continue all other supportive care per primary team. No anticoagulation at this point in time given significant thrombocytopenia. Buck Holguin DO BM/MODL /[id number]
--- NOTE | 2018-12-15 13:20 | NUR ---
Nutrition Intervention Note RD Recommendation(s) for Physician: -To better meet needs, recommend changing TF to Glucerna 1.2 with goal rate of 60 ml/hr (to provide 1728 kcal and 86 gm protein per day) -Water flushes and fluid management per MD -Diet per APPLICATION DEVELOPMENT INTERN. If able to advance, recommend 1800 ADA restriction Plan of Care: RD following, monitoring for tolerance and adequacy. EN recs. Nutrition reason for involvement: Follow up RD Assessment 12/15: Follow up. Pt extubated yesterday, sleeping at time of visit. Per RN pt failed BSE, will continue on TF for now- previously tolerating at goal rate. Chart reviewed. Noted pt had HD on 12/12. Updated TF rec's provided in light of extubation. 12/11: Follow up: Pt was seen in the ICU, remains ventilated and sedated on precedex. Pt is currently on pressor support, levo at 5 mcg/min. Recommend to change formula to Vital HP and only trickle feed pt at this time, reported this to the nurse. Pt is still on Glucerna 1.5, she stated the MD did not want to change formula. Spoke about pt in rounds, possible extubation weening trial or Friday. Pt was seen receiving dialysis and is at 30 ml/hr of the TF. Will continue to monitor. 12/08: 58 YOM admitted for Afib with PMH listed below. Pt is intubated and sedated on fentanyl, no pressor support or propofol. Family was at bedside, they reported the pt didnt eat for about 4 days prior to admission (only consumed small portions d/t decreased appetite. They stated there has been no unintentional weight loss recently. Pt appears well-nourished. Provided TF recommendations above, Vital AF is approparite d/t pt having DM and is not on propofol or pressors. Per nurse- no plans to wean today. Pt was admitted here last week and d/c on 12/02. Pt is the same weight as last week. Will continue to monitor. Principal Problems/Diagnoses: Afib PMH: history of diabetes and respiratory failure, lactic acidosis, peripheral neuropathy, BPH, new onset atrial fibrillation, vitamin D deficiency GI: LBM: 12/15 R abd drain- 110ml output Skin: No pressure ulcer recorded in FS, No edema Labs: 12/15: Na 131, K 4, BUN 58, Cr 3.78, Gluc 192, Phos 4.5, Mg 1.8 12/11: POC GM 121-190 12/08: Na 130, Cl 94, CO2 21, BUN 95, Crea 4.67, Gluc 126, Ca 6.5, tbili 8.6, AST 211, ALT 117, Creat kinase 213, B-Nery peptide 515.3, Amylase 345, Lipase 378 Meds: protonix, abx, lispro, humalog, questran, IV albumin, zofran IVF/Drips: precedex drip Ht: 70 in Wt: 220 lbs 12/11: 255 lbs, 12/15: 251 lb BMI:31.6 kg/m^2 IBW:166 lbs Malnutrition Evaluation 12/08 The patient does not meet criteria for a specified degree of malnutrition at this time. Will re-evaluate at follow-up as appropriate. Energy intake: <50% of estimated energy requirements for >5 days Weight loss: no recent weight loss Fat loss: none Muscle loss: none Supporting Evidence: Fluid accumulation: none Nutrition Prescription (Diet Order): TF of Glucerna 1.5 at 40 ml/hr Estimated Nutritional Needs: Calories: 4395-6688 (22-25 kcal/kg/day) Weight used : IBW ( 75 kg) Protein : 75-113 (1-1.5 gram/kg/day ) Weight used: IBW (75 kg), adjust per renal function Diet Adequacy: Not meeting calorie needs, meeting protein needs Diet Education Needs Assessment: Diet education not indicated, patient on temporary/transition diet. Nutrition Care Level: MOD Nutrition Diagnosis: Inadequate energy intake related to medical condition as evidenced by pt being NPO and ventilated.- RESOLVED Goal: Patient will meet 75-100% of estimated needs by follow up Progress: progressing Interventions: - Enteral nutrition, Composition, Rate, Route, IVF, Prescription medications, Collaboration with other providers Monitoring/Evaluation: -Total energy intake, Total protein intake, Formula/Solution, IVF, Prescription medication, Modified diet Signed: Josy Beatty RD, LD, [facility]
[2018-12-15] MEDS: METRONIDAZOLE 250MG/NS 50ML 50 ML IV SCH ×2 (14:16→22:23)
--- NOTE | 2018-12-15 14:21 | NUR ---
Spoke with Radha MOREL mechanical planner for [employer]. Informed her of order for LTAC. States closest facilities in network are [facility] and [facility]. MARIA TERESA spoke to pt and his daughter Robyn at bedside. They gave choice for 1. [facility] and 2. [facility]. Signed choice letter placed in chart. Copy to pt's daughter. Informed Brandi Hernandez with [facility] of referral. Transfer when accepted. She will be by to pick up driver clinicals.
[2018-12-15] MEDS: CHOLESTYRAMINE 4 GM PACKET PO SCH ×2 (15:09→22:23)
[2018-12-15] MEDS: METOPROLOL TARTRATE 50 MG TAB PO SCH (16:43)
[2018-12-15] MEDS ORDERED: METOPROLOL TARTRATE 25 MG TAB PO SCH (17:00)
[2018-12-15] MEDS: ZOLPIDEM TARTRATE 10 MG TAB NG PRN (23:52)
[2018-12-16] VITALS (18 sets, daily range): BP systolic 139–159; BP diastolic 85–108
[2018-12-16] MEDS: INSULIN LISPRO 100 UNIT/1 ML 3ML VIAL SQ SCH ×4 (00:18→18:41)
[2018-12-16 05:02] LABS: BASOPHILS % 0.2 % (0.0-1.0); EOSINOPHILS # (AUTO) 0.1 (0.0-0.4); EOSINOPHILS % 0.7 % (0.0-6.0); HEMATOCRIT 30.5 % (38.2-49.6); HEMOGLOBIN 9.6 g/dL (14.0-18.0); LYMPHOCYTES # (AUTO) 1.3 (1.0-3.2); LYMPHOCYTES % 10.4 % (18.0-39.1); MEAN CORPUSCULAR HEMOGLOBIN 29.5 pg (28-32); MEAN CORPUSCULAR HGB CONC 31.5 g/dL (31-35); MEAN CORPUSCULAR VOLUME 93.8 fL (81-99); MONOCYTES # (AUTO) 0.8 (0.2-0.8); MONOCYTES % 6.8 % (4.4-11.3); NEUTROPHILS # (AUTO) 9.9 (2.1-6.9); NEUTROPHILS % 81.2 % (38.7-80.0); PLATELET COUNT 106 x10e3/uL (140-360); RED BLOOD COUNT 3.25 x10e6/uL (4.3-5.7)
[2018-12-16 05:26] LABS: ANION GAP 6.4 mmol/L (8-16); CALCIUM 7.8 mg/dL (8.4-10.2); CREATININE, SERUM 2.73 mg/dL (0.72-1.25); POTASSIUM 4.4 mmol/L (3.5-5.1)
[2018-12-16] MEDS: METRONIDAZOLE 250MG/NS 50ML 50 ML IV SCH ×3 (06:05→21:26)
[2018-12-16] MEDS: ACETAMINOPHEN 325 MG TAB PO PRN (06:11)
[2018-12-16] MEDS: IPRATROPIUM BROMIDE 0.02% 2.5 ML NEB NEB SCH ×3 (07:00→23:15)
[2018-12-16] MEDS: AMIODARONE HCL 200 MG TAB PO SCH ×2 (09:33→21:25)
[2018-12-16] MEDS: PANTOPRAZOLE 40 MG 10ML VIAL IV SCH (09:33)
[2018-12-16] MEDS: CHOLESTYRAMINE 4 GM PACKET PO SCH ×3 (09:34→21:26)
[2018-12-16] MEDS: METOPROLOL TARTRATE 50 MG TAB PO SCH ×2 (09:34→21:26)
[2018-12-16] MEDS ORDERED: VANCOMYCIN 1GM/NS 250 ML 250 ML IV ONE ×2 (10:00→14:30)
--- NOTE | 2018-12-16 11:05 | NUR ---
Spoke to Brandi with [facility]. Stated was denied by medical assisting program director, pt to remain in [facility] until ready for [facility]. Dr. Blankenship will be doing P2P.
--- NOTE | 2018-12-16 11:30 | NUR ---
Per Brandi with [facility], P2P for LTAC denial set for tomorrow at 10am, with a second time of Friday at 10am if first time does not work out.
[2018-12-16] MEDS: CEFTRIAXONE SOD 1 GM/NS 50 ML 50 ML IV SCH (14:18)
[2018-12-16] MEDS ORDERED: SODIUM CHLORIDE 0.9% 250ML 250 ML ONE (14:19)
[2018-12-16] MEDS: DIPHENHYDRAMINE HCL INJ 50 MG/ML VIAL IV PRN (22:29)
[2018-12-17] VITALS (19 sets, daily range): BP systolic 140–172; BP diastolic 76–114
[2018-12-17] MEDS: ZOLPIDEM TARTRATE 10 MG TAB NG PRN (00:39)
[2018-12-17] MEDS: INSULIN LISPRO 100 UNIT/1 ML 3ML VIAL SQ SCH ×5 (00:46→21:37)
--- NOTE | 2018-12-17 02:28 | NUR ---
At 2230 before CHG bath, new red rash noted on bilateral arms & axilla, radiating to back side. Patient denies itching or burning. PRN Benadryl given-no change in rash appearance. Patient denies any drug allergies, none listed in records. New antibiotics have been started the last couple days. Will continue to assess and pass information on to Dr. Blankenship and zoë ROCA in the morning.
[2018-12-17] MEDS: ACETAMINOPHEN 325 MG TAB PO PRN (04:45)
[2018-12-17] MEDS: DIPHENHYDRAMINE HCL INJ 50 MG/ML VIAL IV PRN (04:45)
[2018-12-17 05:08] LABS: BASOPHILS % 0.1 % (0.0-1.0); EOSINOPHILS # (AUTO) 0.1 (0.0-0.4); EOSINOPHILS % 0.6 % (0.0-6.0); HEMATOCRIT 28.3 % (38.2-49.6); HEMOGLOBIN 9.1 g/dL (14.0-18.0); LYMPHOCYTES # (AUTO) 1.4 (1.0-3.2); LYMPHOCYTES % 12.7 % (18.0-39.1); MEAN CORPUSCULAR HEMOGLOBIN 29.8 pg (28-32); MEAN CORPUSCULAR HGB CONC 32.2 g/dL (31-35); MEAN CORPUSCULAR VOLUME 92.8 fL (81-99); MONOCYTES % 8.6 % (4.4-11.3); NEUTROPHILS # (AUTO) 8.5 (2.1-6.9); NEUTROPHILS % 77.2 % (38.7-80.0); PLATELET COUNT 80 x10e3/uL (140-360); RED BLOOD COUNT 3.05 x10e6/uL (4.3-5.7); RED CELL DISTRIBUTION WIDTH 16.5 % (11.7-14.4)
[2018-12-17] MEDS: METRONIDAZOLE 250MG/NS 50ML 50 ML IV SCH ×3 (05:23→21:37)
[2018-12-17 05:28] LABS: ALBUMIN 1.8 g/dL (3.5-5.0); ALBUMIN/GLOBULIN RATIO 0.4 (0.8-2.0); ANION GAP 12.2 mmol/L (8-16); CALCIUM 7.7 mg/dL (8.4-10.2); CREATININE, SERUM 3.5 mg/dL (0.72-1.25); POTASSIUM 4.2 mmol/L (3.5-5.1)
[2018-12-17] MEDS: IPRATROPIUM BROMIDE 0.02% 2.5 ML NEB NEB SCH ×3 (07:23→19:30)
[2018-12-17] MEDS: LEVALBUTEROL HCL SOLN NEBU 0.63 MG/3 ML NEB INH PRN ×2 (07:23→19:30)
[2018-12-17] MEDS: PANTOPRAZOLE 40 MG 10ML VIAL IV SCH (08:09)
[2018-12-17] MEDS: AMIODARONE HCL 200 MG TAB PO SCH ×2 (08:09→16:52)
[2018-12-17] MEDS: METOPROLOL TARTRATE 50 MG TAB PO SCH (08:10)
--- NOTE | 2018-12-17 09:05 | Diagnostic Imaging Report ---
EXAMINATION: CHEST SINGLE (PORTABLE) INDICATION: Pneumonia COMPARISON: Chest radiograph of 12/14/2018 FINDINGS: LINES/TUBES:Right IJ central venous catheter terminates in the superior vena cava. EKG leads overlie the chest. LUNGS:The lungs are moderately inflated, improved from 12/14/2018. Interval improvement in extent of pulmonary edema, now mild. No focal consolidation. PLEURA:No pleural effusion or pneumothorax. MEDIASTINUM:Cardiomediastinal silhouette is stably enlarged. Atherosclerotic calcifications of the thoracic aorta. BONES/SOFT TISSUES:No acute osseous injury. ABDOMEN:No free air under the diaphragm. IMPRESSION: Interval improvement in lung volumes and extent of pulmonary edema, now mild. Unchanged cardiomegaly. No focal pneumonia. Signed by: Karyn Maldonado MD on 12/17/2018 9:02 AM
[2018-12-17] MEDS: CHOLESTYRAMINE 4 GM PACKET PO SCH ×3 (10:04→21:37)
[2018-12-17] MEDS ORDERED: CEFEPIME 1GM/NS 0.9% 50 ML 50 ML IV SCH (11:00)
--- NOTE | 2018-12-17 13:49 | NUR ---
SPOKE WITH LISETTE MEJIA ABOUT PROGRESS, SHE STATES SHE WAS GETTING AHOLD OF DR HARDY HE HAD 2 TIMES HE COULD DO THE PEER TO PEER, ATTEMPTING TO GET UPDATE.
--- NOTE | 2018-12-17 13:59 | NUR ---
PATIENT WAS DUE TO VOID. PATIENT INCONTINENT OF URINE AND STOOL. BM AND VOID CLEANED Addendum: 12/17/18 at 1400 by Berna Bradshaw RN Amended: Links added.
[2018-12-17] MEDS: METOPROLOL SUCCINATE 50 MG TAB XL PO SCH (16:52)
[2018-12-17] MEDS ORDERED: METOPROLOL SUCCINATE 50 MG TAB XL PO SCH (17:00)
--- NOTE | 2018-12-17 17:18 | Progress Note ---
DATE: 12/17/2018 Cardiology Progress Note SUBJECTIVE: No events. The patient is feeling better. OBJECTIVE: VITAL SIGNS: Temperature is 98.6, heart rate is 108, respirations are 22, blood pressure is 158/96, and oxygen saturation 98% on 2 L. GENERAL: Well appearing, in no apparent distress. CARDIOVASCULAR: Tachycardic. Irregular rhythm. LUNGS: Diminished breath sounds at the bases. ABDOMEN: Soft, nontender, and nondistended. EXTREMITIES: Trace edema. CARDIOVASCULAR MEDICATIONS: Reviewed. TELEMETRY: Monitoring revealed atrial fibrillation with rapid ventricular response. LABORATORY DATA: Reviewed. Hemoglobin 9.1. Creatinine is 3.5 and potassium is 4.2. IMPRESSION: 1. Atrial fibrillation with rapid ventricular response. 2. Multiorgan failure. 3. Sepsis. 4. Thrombocytopenia. RECOMMENDATIONS: Continue oral amiodarone and metoprolol. We will increase his beta blockers for better rate control. If needed, can start additional antihypertensives after we see the response from the metoprolol. No anticoagulation at this point in time given thrombocytopenia. Continue all other treatment and support. Supportive therapy per primary team. Buck Holguin DO BM/MODL /[id number]
--- NOTE | 2018-12-17 18:01 | NUR ---
assisted patient up to bedside commode. Addendum: 12/17/18 at 1815 by Berna Bradshaw RN patient tolerated fair. minimum assistance required. patient complaint of some dizziness when standing
[2018-12-17] MEDS: TRAMADOL HCL 50 MG TAB PO PRN (21:37)
[2018-12-18] VITALS (10 sets, daily range): BP systolic 132–170; BP diastolic 78–107
[2018-12-18 05:06] LABS: BASOPHILS % 0.1 % (0.0-1.0); EOSINOPHILS # (AUTO) 0.1 (0.0-0.4); EOSINOPHILS % 0.5 % (0.0-6.0); HEMATOCRIT 27.9 % (38.2-49.6); HEMOGLOBIN 8.8 g/dL (14.0-18.0); LYMPHOCYTES # (AUTO) 1.2 (1.0-3.2); MEAN CORPUSCULAR HEMOGLOBIN 29.7 pg (28-32); MEAN CORPUSCULAR HGB CONC 31.5 g/dL (31-35); MEAN CORPUSCULAR VOLUME 94.3 fL (81-99); MONOCYTES # (AUTO) 0.8 (0.2-0.8); MONOCYTES % 7.3 % (4.4-11.3); NEUTROPHILS % 80.5 % (38.7-80.0); PLATELET COUNT 62 x10e3/uL (140-360); RED BLOOD COUNT 2.96 x10e6/uL (4.3-5.7)
[2018-12-18 05:50] LABS: ALBUMIN 1.9 g/dL (3.5-5.0); ALBUMIN/GLOBULIN RATIO 0.4 (0.8-2.0); ANION GAP 15.1 mmol/L (8-16); CALCIUM 7.7 mg/dL (8.4-10.2); CREATININE, SERUM 4.05 mg/dL (0.72-1.25); POTASSIUM 4.1 mmol/L (3.5-5.1)
[2018-12-18] MEDS: METRONIDAZOLE 250MG/NS 50ML 50 ML IV SCH (06:17)
[2018-12-18] MEDS: IPRATROPIUM BROMIDE 0.02% 2.5 ML NEB NEB SCH ×3 (07:11→19:25)
[2018-12-18] MEDS: LEVALBUTEROL HCL SOLN NEBU 0.63 MG/3 ML NEB INH PRN ×2 (07:11→19:25)
[2018-12-18] MEDS ORDERED: CEFEPIME HCL 1 GM VIAL IV SCH (09:00)
[2018-12-18] MEDS: INSULIN LISPRO 100 UNIT/1 ML 3ML VIAL SQ SCH ×4 (09:03→21:06)
[2018-12-18] MEDS: METOPROLOL SUCCINATE 50 MG TAB XL PO SCH ×2 (09:07→18:15)
[2018-12-18] MEDS: AMIODARONE HCL 200 MG TAB PO SCH ×2 (09:07→17:58)
[2018-12-18] MEDS: PANTOPRAZOLE 40 MG 10ML VIAL IV SCH (09:07)
[2018-12-18 10:43] LABS: PLATELET ESTIMATE SLIGHTLY DECREASED; PLATELET MORPHOLOGY COMMENT NORMAL; RBC MORPHOLOGY COMMENT NORMAL
[2018-12-18] MEDS: CHOLESTYRAMINE 4 GM PACKET PO SCH ×3 (10:47→21:12)
--- NOTE | 2018-12-18 14:45 | NUR ---
INSULATION MANAGER and central supply technician supervisor attempted to see patient at 11:40 am. Talked to nurse. Patient said he was not feeling well, and asked that we return in the afternoon. Halie Hendrix PTA/Supervising Sadaf PULIDO Addendum: 12/18/18 at 1447 by Halie Hendrix PTA Amended: Links added.
[2018-12-18] MEDS: TRAMADOL HCL 50 MG TAB PO PRN ×2 (15:02→21:12)
[2018-12-18] MEDS: NYSTATIN 15 GM POWDER UD BTL TOP SCH ×2 (15:02→18:15)
--- NOTE | 2018-12-18 15:16 | NUR ---
DISCUSSED IN BARRIER ROUNDS ON O2 NECTAR THICK LIQUIDS IN CONT, DIALYSIS , AND FRIDAYS GOING 10 FT WITH THERAPY, 2 PERSON ASSIST, DDENIED PEER TO PEER UPHELD AND APPEAL STARTED SHOULD HAVE AN ANSWER FRIDAY.
[2018-12-18] MEDS ORDERED: ALBUMIN 25% 25GM 100ML 0.25 GM/ML BTL IV PRN (15:30)
[2018-12-18] MEDS ORDERED: MANNITOL 25% 12.5GM/50 ML VIAL IV PRN (15:30)
[2018-12-18] MEDS ORDERED: HEPARIN SOD (PORCINE) 1000 UNIT/ML SDV IV PRN (15:45)
[2018-12-18] MEDS ORDERED: SODIUM CHLORIDE 0.9% 1000ML 2,000 ML IV PRN (15:45)
[2018-12-18] MEDS ORDERED: ALBUMIN 25% 12.5GM 0.25 GM/ML BTL IV PRN (15:45)
[2018-12-18] MEDS ORDERED: SODIUM CHLORIDE 0.9% 250ML 500 ML IV PRN (15:45)
--- NOTE | 2018-12-18 17:33 | NUR ---
Follow up Note RD Recommendation(s) for Physician: -Continue mechanical soft, nectar thick liquid diet per ST recommendations Plan of Care: RD following, monitoring for tolerance and adequacy Nutrition reason for involvement: Follow up RD Assessment 12/18: follow up. ST evaluated pt on 12/16 and recommended a mechanical soft and nectar thick diet. Per documentation, pt ate 50-75% of meals yesterday. Today, pt consumed 75% of breakfast and 25% of lunch per chart. Pt is tolerating diet consistency per RN. Will continue to monitor 12/15: Follow up. Pt extubated yesterday, sleeping at time of visit. Per RN pt failed BSE, will continue on TF for now- previously tolerating at goal rate. Chart reviewed. Noted pt had HD on 12/12. Updated TF rec's provided in light of extubation. 12/11: Follow up: Pt was seen in the ICU, remains ventilated and sedated on precedex. Pt is currently on pressor support, levo at 5 mcg/min. Recommend to change formula to Vital HP and only trickle feed pt at this time, reported this to the nurse. Pt is still on Glucerna 1.5, she stated the MD did not want to change formula. Spoke about pt in rounds, possible extubation weening trial or Friday. Pt was seen receiving dialysis and is at 30 ml/hr of the TF. Will continue to monitor. 12/08: 58 YOM admitted for Afib with PMH listed below. Pt is intubated and sedated on fentanyl, no pressor support or propofol. Family was at bedside, they reported the pt didnt eat for about 4 days prior to admission (only consumed small portions d/t decreased appetite. They stated there has been no unintentional weight loss recently. Pt appears well-nourished. Provided TF recommendations above, Vital AF is approparite d/t pt having DM and is not on propofol or pressors. Per nurse- no plans to wean today. Pt was admitted here last week and d/c on 12/02. Pt is the same weight as last week. Will continue to monitor. Principal Problems/Diagnoses: Afib PMH: history of diabetes and respiratory failure, lactic acidosis, peripheral neuropathy, BPH, new onset atrial fibrillation, vitamin D deficiency GI: last recorded BM 12/18 Skin: No pressure ulcer recorded, no edema Labs: 12/18: BUN 63, Creat 4.05, Glu 124, Ca 7.7 12/15: Na 131, K 4, BUN 58, Cr 3.78, Gluc 192, Phos 4.5, Mg 1.8 12/11: POC GM 121-190 12/08: Na 130, Cl 94, CO2 21, BUN 95, Crea 4.67, Gluc 126, Ca 6.5, tbili 8.6, AST 211, ALT 117, Creat kinase 213, B-Nery peptide 515.3, Amylase 345, Lipase 378 Meds: insulin lispro, metroprolol, protonix, heparin, NaCl, mannitol, zofran Ht: 70 in Wt: 12/11: 255 lbs, 12/15: 251 lb, 12/18 250 lbs BMI:35.86 kg/m^2 IBW:166 lbs Malnutrition Evaluation 12/18 The patient does not meet criteria for a specified degree of malnutrition at this time. Will re-evaluate at follow-up as appropriate. Energy intake: Per documentation, pt ate 50-75% of meals yesterday. Today, pt consumed 75% of breakfast and 25% of lunch per chart. Weight loss: no recent weight loss Fat loss: none Muscle loss: none Supporting Evidence: Fluid accumulation: none Nutrition Prescription (Diet Order): GI soft mechanical soft and nectar thick liquids Estimated Nutritional Needs: Calories: 7219-5649 (22-25 kcal/kg/day) Weight used : IBW ( 75 kg) Protein : 75-113 (1-1.5 gram/kg/day ) Weight used: IBW (75 kg), adjust per renal function Diet Adequacy: pt is progressing towards meeting nutrition needs Diet Education Needs Assessment: RD is available for diet education as needed. Nutrition Care Level: low, pt is no longer receiving tube feeding and is tolerating diet consistency Nutrition Diagnosis: Swallowing difficulty related to dysphasia as evidenced by need for modified consistency diet. Goal: Patient will meet 75-100% of estimated needs by follow up Progress: progressing Interventions: modified diet Monitoring/Evaluation: -Total energy intake, Total protein intake, Wt change, Modified diet Signed: Lizzie Chandra RD, ANNEMARIE
--- NOTE | 2018-12-18 19:00 | NUR ---
Received patient from day nurse, patient is stable, no issues.
[2018-12-18] MEDS: ZOLPIDEM TARTRATE 10 MG TAB NG PRN (21:12)
--- NOTE | 2018-12-18 22:00 | NUR ---
dailysis was started and completed at about 0000, removed 2l
--- NOTE | 2018-12-18 22:30 | Progress Note ---
DATE: 12/18/2018 Cardiology Progress Note SUBJECTIVE: The patient denies chest pain or shortness of breath. OBJECTIVE: VITAL SIGNS: Temperature 98.2 degrees, pulse 117, respiratory rate 19, blood pressure 170/103, and oxygen saturation 100% on 2 L nasal cannula. GENERAL: Awake, alert, in no acute distress. LUNGS: Clear to auscultation bilaterally. No wheezes or crackles. CARDIOVASCULAR: Normal rate, irregularly irregular. Normal S1, S2. ABDOMEN: Soft and nontender. EXTREMITIES: No edema. CARDIAC MEDICATIONS: Metoprolol succinate 100 mg p.o. b.i.d., amiodarone 200 mg p.o. b.i.d. LABORATORY DATA: WBC 11.13, hemoglobin 8.8, hematocrit 27.9, platelets 62. Sodium 139, potassium 4.1, chloride 104, CO2 of 24, BUN 62, creatinine 4.05. TELEMETRY: Atrial fibrillation. IMPRESSION: 1. Atrial fibrillation. 2. Sepsis. 3. Multiorgan failure. 4. Thrombocytopenia. 5. Acute systolic heart failure, left ventricular ejection fraction 40% to 45%. RECOMMENDATIONS: Continue current cardiac medications. Monitor volume status closely. Volume management per Nephrology given acute kidney injury with lack of renal recovery. No anticoagulation given thrombocytopenia. Continue supportive care. The patient is being considered for cholecystectomy. He is at least moderate risk for cardiovascular complications for an intermediate risk surgery given his multiple risk factors and inability to document greater than four METS of activity. Thank you for this consult. We will continue to follow. Lisbeth Saleh MD ABS/MODL /[id number]
[2018-12-19] VITALS (11 sets, daily range): BP systolic 120–150; BP diastolic 72–95
[2018-12-19 06:01] LABS: BASOPHILS % 0.2 % (0.0-1.0); EOSINOPHILS # (AUTO) 0.2 (0.0-0.4); EOSINOPHILS % 2.4 % (0.0-6.0); HEMATOCRIT 28.5 % (38.2-49.6); HEMOGLOBIN 9.1 g/dL (14.0-18.0); LYMPHOCYTES # (AUTO) 1.4 (1.0-3.2); LYMPHOCYTES % 13.9 % (18.0-39.1); MEAN CORPUSCULAR HEMOGLOBIN 29.7 pg (28-32); MEAN CORPUSCULAR HGB CONC 31.9 g/dL (31-35); MEAN CORPUSCULAR VOLUME 93.1 fL (81-99); MONOCYTES # (AUTO) 0.7 (0.2-0.8); MONOCYTES % 7.2 % (4.4-11.3); NEUTROPHILS # (AUTO) 7.7 (2.1-6.9); NEUTROPHILS % 75.6 % (38.7-80.0); PLATELET COUNT 55 x10e3/uL (140-360); RED BLOOD COUNT 3.06 x10e6/uL (4.3-5.7)
--- NOTE | 2018-12-19 06:12 | Diagnostic Imaging Report ---
EXAMINATION: CHEST SINGLE (PORTABLE) INDICATION: Congestive heart failure COMPARISON: Chest radiograph 12/17/2018 FINDINGS: AP view TUBES and LINES: Unchanged right IJ central venous catheter, tip in the low SVC.. LUNGS: Lungs are well inflated. Lungs are clear. Prominent central pulmonary vasculature. No consolidations. PLEURA: No pleural effusion or pneumothorax. HEART AND MEDIASTINUM: The cardiomediastinal silhouette is unremarkable. Aortic arch calcifications. BONES AND SOFT TISSUES: No acute osseous lesion. Soft tissues are unremarkable. Degenerative changes in the spine and shoulders. UPPER ABDOMEN: No free air under the diaphragm. IMPRESSION: Mild cardiopulmonary and pulmonary vascular congestion. Signed by: Jaime Patel DO on 12/19/2018 6:09 AM
[2018-12-19 06:21] LABS: ALBUMIN/GLOBULIN RATIO 0.4 (0.8-2.0); ANION GAP 12.2 mmol/L (8-16); CALCIUM 7.6 mg/dL (8.4-10.2); CREATININE, SERUM 2.1 mg/dL (0.72-1.25); POTASSIUM 4.2 mmol/L (3.5-5.1)
[2018-12-19 06:54] LABS: MAGNESIUM 1.8 MG/DL (1.3-2.1); PHOSPHORUS 3.6 MG/DL (2.3-4.7)
[2018-12-19] MEDS: IPRATROPIUM BROMIDE 0.02% 2.5 ML NEB NEB SCH ×3 (06:55→18:55)
[2018-12-19] MEDS: INSULIN LISPRO 100 UNIT/1 ML 3ML VIAL SQ SCH ×4 (07:30→20:40)
[2018-12-19 07:48] LABS: PLATELET ESTIMATE MODERATELY DECREASED
[2018-12-19 07:49] LABS: PLATELET MORPHOLOGY COMMENT FEW LARGE
[2018-12-19] MEDS: AMIODARONE HCL 200 MG TAB PO SCH ×2 (09:24→18:16)
[2018-12-19] MEDS: PANTOPRAZOLE 40 MG 10ML VIAL IV SCH (09:24)
[2018-12-19] MEDS: EPOETIN ALFA 10000 UNIT/ML VIAL SC SCH (09:25)
[2018-12-19] MEDS: METOPROLOL SUCCINATE 50 MG TAB XL PO SCH ×2 (09:25→18:49)
[2018-12-19] MEDS: NYSTATIN 15 GM POWDER UD BTL TOP SCH ×2 (09:41→16:06)
[2018-12-19] MEDS: CHOLESTYRAMINE 4 GM PACKET PO SCH ×3 (10:58→21:11)
--- NOTE | 2018-12-19 11:23 | Progress Note ---
DATE: 12/19/2018 Cardiology Progress Note SUBJECTIVE: The patient has no new complaints. He reports that he feels okay, however, endorses some shortness of breath. Denies any palpitations or chest pain. Endorses some edema in his bilateral lower extremity. OBJECTIVE: VITAL SIGNS: Temperature 98.6, pulse 111, respiratory rate 20, blood pressure 125/99, oxygen saturation 100% on 2 L nasal cannula. GENERAL: Alert and oriented x3. Resting comfortably in bed. at the bedside. Does not appear to be in acute distress. LUNGS: Clear to auscultation throughout. No wheezing. No rhonchi or crackles. CARDIOVASCULAR: Regular rate and rhythm. Normal S1, S2. No murmurs, no gallops. ABDOMEN: Soft, nontender. EXTREMITIES: Lower extremity, trace edema bilaterally, cool to the touch. CARDIOVASCULAR MEDICATIONS: Metoprolol succinate 100 mg p.o. b.i.d., amiodarone 200 mg p.o. b.i.d. LABORATORY DATA: WBC 10.16, hemoglobin 9.1, hematocrit 28.5, platelets 55. Sodium 138, potassium 4.2, BUN 29, creatinine 2.10, calcium 7.6. Chest x-ray from this morning with mild cardiopulmonary and pulmonary vascular congestion. Telemetry, atrial fibrillation with moments of rapid ventricular response. IMPRESSION: 1. Atrial fibrillation. 2. Sepsis. 3. Multiorgan failure. 4. Thrombocytopenia. 5. Acute systolic heart failure with left ventricular ejection fraction of 40% to 45%. RECOMMENDATIONS: Continue with the above-listed cardiac medications. Continue to monitor on telemetry. Continue to monitor volume status and volume management per Nephrology given [id number] kidney disease and lack of renal recovery. The patient is on anticoagulation at this time given thrombocytopenia. We will continue supportive care. This patient is being considered for cholecystectomy. He will be at least moderate risk for cardiovascular complications given the above-listed risk factors and also his inability to document greater than 4 METS of activity. We will continue to monitor this patient. Dictated by Kendra Bush NP MD KYLIE Bowen/SANTOS /[id number]
--- NOTE | 2018-12-19 14:06 | NUR ---
pt refused twice today due to fatigue from lack of sleep due to HD tx overnight. f/u on dec 21 Addendum: 12/19/18 at 1407 by Teo Stockton PTA Amended: Links added.
--- NOTE | 2018-12-19 14:14 | Progress Note ---
DATE: 12/19/2018 SUBJECTIVE: Mr. Hernandez is doing better today. He is more alert, has no complaints. He is feeling stronger. REVIEW OF SYSTEMS: HEENT: Negative. PULMONARY: Negative. CARDIAC: Negative. : Negative. Otherwise, all negative. PHYSICAL EXAMINATION: GENERAL: He is currently alert, oriented, does not seem to be in acute distress. VITAL SIGNS: Stable, afebrile, temperature 98.6, heart rate 110, respiration 20, and blood pressure 125/99, O2 saturation 100% on 2 L. HEENT: Normocephalic. Not icteric. NECK: Supple. No JVD. No lymphadenopathy. No thyromegaly. CHEST: Clear bilateral. HEART: S1, S2. No S3, S4, or murmur. ABDOMEN: Soft. Bowel sounds present. No tenderness. No hepatosplenomegaly. EXTREMITIES: Trace edema. LABORATORY DATA: Reviewed. His sputum showed Flores parapsilosis. Blood cultures, fluid cultures all are negative. His white count is coming down to 10.16, hemoglobin 9.1, his platelets 55,000. Sodium 138, potassium 4.2, creatinine of 2.10. Liver enzymes, bilirubin was 2.8. MEDICATIONS: List reviewed. He is on insulin, Questran, nystatin, Epogen, Cordarone, Protonix, Atrovent, Ambien, Tylenol, albumin, mannitol, dextrose. IMPRESSION: 1. Sepsis, resolved. Sepsis secondary to cholecystitis, status post cholecystectomy. 2. Liver cirrhosis, alcoholism, doing better. 3. Thrombocytopenia due to the above, stable. 4. Acute on chronic kidney disease. Renal is following. 5. Elevated liver enzyme, probably due from his liver disease. 6. Debility. 7. Atrial fibrillation. 8. From Infectious Disease point of view, the patient is stable. Once he is better, can proceed with cholecystectomy. 9. Must abstain from alcoholism. 10. We will follow. MD JERRICA John/MODL /[id number]
--- NOTE | 2018-12-19 14:24 | Progress Note ---
DATE: 12/19/2018 Internal Medicine Progress Note SUBJECTIVE: The patient is feeling better. PHYSICAL EXAMINATION: VITAL SIGNS: Blood pressure 120/73, heart rate 104 per minute, temperature is 100.3 degrees Fahrenheit, respiratory rate 19 per minute, oxygen saturation 98%. HEART: Show regular rhythm. Normal S1, S2 sound. LUNGS: Clear bilaterally. ABDOMEN: Soft. EXTREMITIES: Show no evidence of cyanosis or hematoma. LABORATORY DATA: On the BMP; sodium 138, potassium 4.2, chloride 102, CO2 of 28, BUN 29, creatinine 2.10, glucose 103. On CBC, white blood count 10.1, hemoglobin 9.1, hematocrit 28.5, platelet count 55,000. PT 16.9, INR 1.31, PTT 33.0, AST 33, ALT 45, total bilirubin 2.8, alkaline phosphatase 186. IMPRESSION: 1. Sepsis. 2. Bilateral aspiration pneumonia. 3. Acute renal failure, on dialysis. 4. Acute anemia. 5. Thrombocytopenia. 6. Acute cholecystitis, status post cholecystectomy. 7. Respiratory failure. 8. Alcohol abuse. 9. Increased lipase, rule out pancreatitis. 10. Cirrhosis of the liver. 11. Acute atrial fibrillation. PLAN OF TREATMENT: Continue Xopenex q.6 hours and Atrovent q.8 hours. Continue dialysis. Continue Benadryl 25 mg q.6 hours as needed. Continue monitoring blood sugar before meals and at bedtime. Continue Ambien 10 mg at night p.r.n. for sleep, Zofran 4 mg p.o. or IV q.4 hours as needed for nausea and vomiting, Tylenol 650 mg q.4 hours as needed for pain or fever, metoprolol 100 mg twice a day, amiodarone 200 mg twice a day, tramadol 50 mg q.6 hours as needed for pain, heparin 5000 units as needed for dialysis catheter flush, Protonix 40 mg daily, Questran 3 times a day, nystatin twice a day, Epogen 10,000 units Friday, , and Saturdays. The patient had a cholecystostomy apparently. TIME SPENT: 45 minutes. MD PRASHANT Miramontes/SANTOS /[id number]
--- NOTE | 2018-12-19 14:36 | NUR ---
Dr. Norman Lipscomb in the building made aware of consult for elevated lipase.
[2018-12-19] MEDS: TRAMADOL HCL 50 MG TAB PO PRN (15:02)
[2018-12-19] MEDS: FLUCONAZOLE 100 MG TAB PO SCH (18:16)
--- NOTE | 2018-12-19 20:33 | Diagnostic Imaging Report ---
EXAM: CT Abdomen WITHOUT contrast INDICATION: Abdominal pain COMPARISON: Abdominal CT 12/08/2018. TECHNIQUE: Abdomen was scanned utilizing a multidetector helical scanner from the lung base to the iliac crest without administration of IV contrast. Absence of intravenous contrast decreases sensitivity for detection of focal lesions and vascular pathology. Coronal and sagittal reformations were obtained. Routine protocol was performed. IV CONTRAST: None ORAL CONTRAST: None COMPLICATIONS: None RADIATION DOSE: Total DLP: 591 mGy*cm Estimated effective dose: (DLP x 0.015 x size factor) mSv CTDIvol has been reviewed. It is below the limits set by the Radiation Protocol Committee (RPC). Dose modulation, iterative reconstruction, and/or weight based adjustment of the mA/kV was utilized to reduce the radiation dose to as low as reasonably achievable. FINDINGS: LINES and TUBES: Percutaneous cholecystostomy tube tip coils within the decompressed gallbladder lumen.. LOWER THORAX: Calcifications at the left main coronary artery origin. Trace right pleural effusion. HEPATOBILIARY: No focal hepatic lesions. No biliary ductal dilation. GALLBLADDER: Decompressed with percutaneous cholecystostomy tube within the gallbladder lumen. SPLEEN: No splenomegaly. PANCREAS: Mild peripancreatic edema about the pancreatic head. A 2.6 cm peripancreatic fluid collection at the pancreaticoduodenal groove. These findings are new compared to abdominal CT on 12/08/2018. No ductal dilatation. ADRENALS: No adrenal nodules KIDNEYS/URETERS: No hydronephrosis. No cystic or solid mass lesions. Punctate nonobstructive calculi in the left kidney. GI TRACT: Mild thickening of the second third segment duodenum. No abnormal distention, or evidence of bowel obstruction. LYMPH NODES: No lymphadenopathy. VESSELS: There is mild atherosclerotic disease in the aorta and major arterial branches. PERITONEUM / RETROPERITONEUM: No free air. Trace fluid along the superior right paracolic gutter. BONES: There are degenerative changes in the lumbar spine. SOFT TISSUES: Mild amount of edema in the subcutaneous adipose of the right upper flank/abdomen. IMPRESSION: 1. Mild peripancreatic edema about the pancreatic head/uncinate as seen with acute interstitial edematous pancreatitis. A 2.6 cm peripancreatic fluid collection at the pancreaticoduodenal groove. These findings are new since abdominal CT on 12/08/2018. 2. Mild reactive duodenitis. 3. Percutaneous cholecystostomy drain in place within the decompressed gallbladder. 4. Left main coronary artery calcific atherosclerosis. 5. Trace right pleural effusion. Signed by: Jaime Patel DO on 12/19/2018 8:30 PM
[2018-12-20] VITALS (7 sets, daily range): BP systolic 125–162; BP diastolic 64–104
[2018-12-20] MEDS: ZOLPIDEM TARTRATE 10 MG TAB NG PRN ×2 (00:15→22:40)
[2018-12-20 05:06] LABS: BASOPHILS % 0.1 % (0.0-1.0); EOSINOPHILS # (AUTO) 0.3 (0.0-0.4); EOSINOPHILS % 3.8 % (0.0-6.0); HEMATOCRIT 28.3 % (38.2-49.6); HEMOGLOBIN 9.1 g/dL (14.0-18.0); LYMPHOCYTES # (AUTO) 1.2 (1.0-3.2); LYMPHOCYTES % 15.2 % (18.0-39.1); MEAN CORPUSCULAR HEMOGLOBIN 30.1 pg (28-32); MEAN CORPUSCULAR HGB CONC 32.2 g/dL (31-35); MEAN CORPUSCULAR VOLUME 93.7 fL (81-99); MONOCYTES # (AUTO) 0.5 (0.2-0.8); MONOCYTES % 7.1 % (4.4-11.3); NEUTROPHILS # (AUTO) 5.6 (2.1-6.9); NEUTROPHILS % 72.9 % (38.7-80.0); PLATELET COUNT 70 x10e3/uL (140-360); RED BLOOD COUNT 3.02 x10e6/uL (4.3-5.7); RED CELL DISTRIBUTION WIDTH 15.9 % (11.7-14.4)
[2018-12-20 05:35] LABS: ALBUMIN 2.1 g/dL (3.5-5.0); ALBUMIN/GLOBULIN RATIO 0.5 (0.8-2.0); ANION GAP 15.6 mmol/L (8-16); CALCIUM 7.4 mg/dL (8.4-10.2); CREATININE, SERUM 2.65 mg/dL (0.72-1.25); POTASSIUM 3.6 mmol/L (3.5-5.1)
[2018-12-20] MEDS: IPRATROPIUM BROMIDE 0.02% 2.5 ML NEB NEB SCH ×3 (06:20→19:27)
[2018-12-20] MEDS: TRAMADOL HCL 50 MG TAB PO PRN ×3 (06:36→22:30)
--- NOTE | 2018-12-20 07:00 | NUR ---
Bedside report given to Gabriel Asencio RN.
[2018-12-20] MEDS: INSULIN LISPRO 100 UNIT/1 ML 3ML VIAL SQ SCH ×4 (08:27→20:33)
[2018-12-20] MEDS: CHOLESTYRAMINE 4 GM PACKET PO SCH ×3 (08:41→21:17)
[2018-12-20] MEDS: METOPROLOL SUCCINATE 50 MG TAB XL PO SCH ×2 (08:42→17:40)
[2018-12-20] MEDS: AMIODARONE HCL 200 MG TAB PO SCH ×2 (08:42→17:40)
[2018-12-20] MEDS: NYSTATIN 15 GM POWDER UD BTL TOP SCH ×2 (08:42→17:40)
[2018-12-20] MEDS: PANTOPRAZOLE 40 MG 10ML VIAL IV SCH (08:42)
[2018-12-20] MEDS: ACETAMINOPHEN 325 MG TAB PO PRN ×2 (10:31→20:32)
--- NOTE | 2018-12-20 12:29 | Progress Note ---
DATE: 12/20/2018 Cardiology Progress Note SUBJECTIVE: The patient complains of some pain in his bilateral lower extremity, sometimes is aching and burning in nature. Denies any chest pain or shortness of breath or palpitations. OBJECTIVE: VITAL SIGNS: Temperature 98.6, pulse 116, respiratory rate 18, blood pressure 152/104, and oxygen saturation 97% on room air. GENERAL: Alert and oriented x3. Resting comfortably in bed. Family at the bedside. Does not appear to be in any acute distress. NECK: Supple. No JVD noted. LUNGS: Clear to auscultation throughout. No wheezing. No rhonchi or crackles. CARDIOVASCULAR: Regular rate and rhythm. No murmurs. No gallops. ABDOMEN: Soft and nontender. EXTREMITIES: Lower extremity, trace edema bilaterally. Diminished pedal pulses. CARDIOVASCULAR MEDICATIONS: Metoprolol 100 mg p.o. b.i.d., heparin 5000 units p.r.n., and amiodarone 200 mg p.o. b.i.d. LABORATORY DATA: WBC 7.65, hemoglobin 9.1, hematocrit 28.3, and platelets 70. Sodium 135, potassium 3.6, BUN 37, and creatinine 2.65. CT of the abdomen without contrast yesterday with mild peripancreatic edema and 2.6 cm of peripancreatic fluid collection at the pancreaticoduodenal groove. Chest x-ray from yesterday with mild cardiopulmonary vascular congestion. Telemetry, atrial fibrillation with RVR. IMPRESSION: 1. Atrial fibrillation with poor rate control. 2. Sepsis. 3. Multiorgan failure. 4. Thrombocytopenia. 5. Acute systolic heart failure with left ventricular ejection fraction of 40% to 45%. RECOMMENDATIONS: Continue the above-listed cardiac medications. Continue to monitor telemetry. Pain management per primary team. Volume status and management per Nephrology given [id number] kidney disease and lack of renal recovery. The patient is not on anticoagulation given thrombocytopenia. We will continue supportive care at this point. This patient is being considered for a cholecystectomy. He would be at least a moderate risk for cardiovascular complication given the above-listed cardiac problems and also his inability to document greater than 4 METS of activity. We will continue to follow this patient very closely. Medications adjusted this morning. Dictated by Kendra Bush NP MD KYLIE Bowen/HEIDYL /[id number]
[2018-12-20 13:01] LABS: CHOL/HDL RATIO 3.8 (3.9-4.7)
--- NOTE | 2018-12-20 14:09 | Progress Note ---
DATE: 12/20/2018 Internal Medicine Progress Note SUBJECTIVE: The patient is feeling okay. The lipase was found to be high yesterday. We did a CT of the abdomen which showed pancreatitis. PHYSICAL EXAMINATION: VITAL SIGNS: Blood pressure 152/104, temperature 98.6, heart rate 116 per minute, respiratory rate 19 per minute, and O2 saturation 97%. HEART: Regular rhythm. Normal S1, S2 sound. LUNGS: Clear bilaterally. ABDOMEN: Soft, nontender. No distention. No visceromegaly. EXTREMITIES: Evidence of psoriasis on the right knee. LABORATORY DATA: On the BMP; sodium 135, potassium 3.6, chloride 100, CO2 of 23, BUN 37, creatinine 2.65, and glucose 127. CBC; white count 7.65, hemoglobin 9.1, hematocrit 28.3, and platelet count 70,000. PT 16.9, INR 1.31, and PTT 33.0. AST 30, ALT 47, total bilirubin 2.4, alkaline phosphatase 207, and lipase 133 which is down from before. FINAL IMPRESSION: 1. Sepsis. 2. Acute pancreatitis. 3. Bilateral pneumonia, which is aspiration pneumonia most likely. 4. Acute renal failure. 5. Acute anemia. 6. Acute cholecystitis, status post cholecystostomy. 7. Status post respiratory failure. 8. Thrombocytopenia. PLAN OF TREATMENT: We are going to start the patient on n.p.o. status and continue Atrovent q.8 hours and Xopenex q.6 hours. Continue with Benadryl 12.5 mg q.6 hours as needed. Continue monitoring blood sugar before meals and at bedtime, continue metoprolol at 150 mg twice a day, Zofran 4 mg every 4 hours as needed, Tylenol 650 mg q.4 hours as needed, tramadol 50 mg q.6 hours as needed, heparin 5000 units as needed, Ambien 10 mg at night p.r.n. for sleep, amiodarone 200 mg twice a day, nystatin twice a day to affected area, Epogen 10,000 units Friday, , and Friday, Protonix 40 mg daily, Questran 4 g three times a day, mannitol 100 mL as needed during dialysis, and fluconazole 200 mg daily. We are going to recheck the lipase level tomorrow. Continue n.p.o. status. Dr. Marquez has been consulted from the Gastroenterology point of view. MD PRASHANT Miramontes/SANTOS /[id number]
[2018-12-20] MEDS: FLUCONAZOLE 100 MG TAB PO SCH (17:40)
--- NOTE | 2018-12-20 19:00 | NUR ---
Bedside report given to Gabriel Asencio RN.
[2018-12-21 05:55] LABS: BASOPHILS % 0.1 % (0.0-1.0); EOSINOPHILS # (AUTO) 0.4 (0.0-0.4); EOSINOPHILS % 4.7 % (0.0-6.0); LYMPHOCYTES # (AUTO) 1.4 (1.0-3.2); LYMPHOCYTES % 17.8 % (18.0-39.1); MEAN CORPUSCULAR VOLUME 93.6 fL (81-99); MONOCYTES # (AUTO) 0.6 (0.2-0.8); MONOCYTES % 7.6 % (4.4-11.3); NEUTROPHILS # (AUTO) 5.4 (2.1-6.9); NEUTROPHILS % 68.9 % (38.7-80.0); PLATELET COUNT 67 x10e3/uL (140-360); RED BLOOD COUNT 2.67 x10e6/uL (4.3-5.7); RED CELL DISTRIBUTION WIDTH 15.9 % (11.7-14.4)
[2018-12-21 06:23] LABS: ALBUMIN 2.2 g/dL (3.5-5.0); ALBUMIN/GLOBULIN RATIO 0.5 (0.8-2.0); ANION GAP 15.6 mmol/L (8-16); CALCIUM 7.3 mg/dL (8.4-10.2); CREATININE, SERUM 2.56 mg/dL (0.72-1.25); POTASSIUM 3.6 mmol/L (3.5-5.1)
[2018-12-21] MEDS: IPRATROPIUM BROMIDE 0.02% 2.5 ML NEB NEB SCH ×3 (06:50→23:50)
[2018-12-21 07:00] VITALS: BP 165/99
[2018-12-21] MEDS: INSULIN LISPRO 100 UNIT/1 ML 3ML VIAL SQ SCH ×4 (07:30→20:40)
[2018-12-21 09:00] VITALS: BP 165/99
[2018-12-21] MEDS ORDERED: HEPARIN SOD (PORCINE) 1000 UNIT/ML SDV IV PRN (10:30)
--- NOTE | 2018-12-21 10:50 | NUR ---
[id number] late entery 12/20/18
[2018-12-21 11:00] VITALS: BP 159/106
[2018-12-21] MEDS ORDERED: CEFEPIME HCL 1 GM VIAL IV SCH (11:00)
--- NOTE | 2018-12-21 11:49 | Progress Note ---
DATE: 12/20/2018 SUBJECTIVE: This patient who was seen and examined. He was lying in bed comfortably. He is feeling better. There are no new complaints. His most recent workup showed that has an elevated amylase and lipase and then a CAT scan confirmed pancreatitis, but he is currently comfortable in n.p.o. status. REVIEW OF SYSTEMS: HEENT: There is no headache, visual changes or hearing changes. GI: There is some element of nausea, but no vomiting. : Negative. SKIN: No rash. PHYSICAL EXAMINATION: GENERAL: He is currently alert, oriented, does not seem to be in acute distress. VITAL SIGNS: Stable, afebrile. Blood pressure 152/104, heart rate of 118, temperature 98.8. There is no fever, respiration rate 19, O2 saturation 97%. HEENT: Normocephalic. Not icteric. NECK: Supple. No JVD. No lymphadenopathy. No thyromegaly. CHEST: Clear bilateral. HEART: S1, S2. No S3, S4, or murmur. ABDOMEN: Soft. Bowel sounds present. No tenderness. EXTREMITIES: There is no edema. SKIN: There is rash suggestive of psoriasis mainly of his right knee, there is a patch of 3.2 cm. LABORATORY DATA: Sodium 135, potassium of 3.6, chloride 100, BUN 37, creatinine 2.65, glucose 127. WBC 7.65, hemoglobin 9.1. As mentioned above his CT was suggestive of pancreatitis. His sputum showed Flores parapsilosis, but the blood cultures are negative. Physical examination as above. IMPRESSION AND PLAN: 1. Pancreatitis, improving, mild. Continue with controlling his diet. 2. Status post cholecystitis, status post percutaneous cholecystectomy. Drain is in place with decompressed gallbladder. 3. Anemia of chronic disease. 4. Obesity. 5. Chronic kidney disease with creatinine 2.56. 6. Diabetes with glucose 159. 7. Elevated liver enzyme secondary to the above slowly better. 8. From Infectious Disease point of view, the patient clinically is doing better, improving slowly. Agree with diet control. He can discontinue Diflucan. Can discontinue antibiotic. 9. Continue supportive care. He is currently on Ultram, Tylenol, Atrovent, nystatin, Cordarone, Epogen, Xopenex, Questran and mannitol. We will continue to follow with you. MD KARELY John /[id number]
--- NOTE | 2018-12-21 12:19 | Progress Note ---
DATE: 12/21/2018 SUBJECTIVE: Mr. Hernandez continued to improve. No new complaint. REVIEW OF SYSTEMS: HEENT: Negative. PULMONARY: Negative. CARDIAC: Negative. : Negative. PHYSICAL EXAMINATION: GENERAL: He is currently alert, oriented, does not seem to be in acute distress. VITAL SIGNS: Temperature 99.2, T-max 100.4, heart rate of 94, respirations 18, and blood pressure was 165/99. HEENT: Normocephalic, not icteric. NECK: Supple. CHEST: Few crackles bilateral. COR: S1 and S2. No S3, S4, or murmur. ABDOMEN: Soft. Bowel sounds present. No tenderness. EXTREMITIES: No edema. LABORATORY DATA: Today, his sodium 134, potassium 3.6, creatinine 2.56, glucose 120. His white count 7.8, hemoglobin of 8, hematocrit 25, his platelets 167. IMPRESSION: 1. Low fever secondary to pancreatitis. 2. Status post cholecystitis with cholecystectomy. 3. Status post pneumonia, aspiration. 4. Acute on chronic kidney disease. 5. Concerned about his low fever, concerned about hospital-related pneumonia versus due to his pancreatitis, maybe he is not taking I am going to start him on cefepime at the present time. 6. We will adjust for his kidney function. 7. Anemia. 8. Thrombocytopenia secondary to liver disease. 9. History of alcoholism. 10. Obesity. 11. We will follow. MD JERRICA John/SANTOS /[id number]
[2018-12-21] MEDS: AMIODARONE HCL 200 MG TAB PO SCH ×2 (14:24→17:00)
[2018-12-21] MEDS: PANTOPRAZOLE 40 MG 10ML VIAL IV SCH (14:24)
[2018-12-21] MEDS: METOPROLOL SUCCINATE 50 MG TAB XL PO SCH ×2 (14:25→17:00)
[2018-12-21] MEDS: CHOLESTYRAMINE 4 GM PACKET PO SCH ×3 (14:25→20:37)
[2018-12-21] MEDS: CEFEPIME 1GM/NS 0.9% 50 ML 50 ML IV SCH (14:25)
[2018-12-21] MEDS: NYSTATIN 15 GM POWDER UD BTL TOP SCH ×2 (14:25→18:07)
[2018-12-21 15:00] VITALS: BP 145/98
--- NOTE | 2018-12-21 15:13 | Diagnostic Imaging Report ---
PROCEDURE: X-RAY MODIFIED BARIUM SWALLOW COMPARISON: None. INDICATION: Aspiration Radiation Details: Fluoroscopy time: 2.2 minutes Cumulative dose: 16 mGy DISCUSSION: Fluoroscopic examination was performed in conjunction with speech pathology during swallowing a variety of thin and thick liquid consistencies. Provided images demonstrate laryngeal penetration and trace silent aspiration. CONCLUSION: Modified barium swallow demonstrating laryngeal penetration and trace silent aspiration. Please refer to the speech pathology report for further details. Signed by: Karyn Maldonado MD on 12/21/2018 3:10 PM
--- NOTE | 2018-12-21 16:06 | Progress Note ---
DATE: 12/21/2018 Cardiology Progress Note SUBJECTIVE: The patient denies chest pain or shortness of breath. He complains of being hungry. OBJECTIVE: VITAL SIGNS: Temperature 98.6 degrees, pulse 98, respiratory rate 20, blood pressure 159/106, oxygen saturation 98% on room air. GENERAL: Awake, alert, in no acute distress. LUNGS: Clear to auscultation bilaterally. No wheezes or crackles. CARDIOVASCULAR: Normal rate, irregularly irregular. Normal S1, S2. ABDOMEN: Soft, nontender. EXTREMITIES: No edema. CARDIAC MEDICATIONS: Metoprolol succinate 150 mg p.o. b.i.d., amiodarone 200 mg p.o. b.i.d. LABORATORY DATA: WBC 7.8, hemoglobin 8, hematocrit 25, platelets 67. Sodium 134, potassium 3.6, chloride 100, CO2 of 22, BUN 37, creatinine 2.56. TELEMETRY: Atrial fibrillation. IMPRESSION: 1. Atrial fibrillation. 2. Sepsis. 3. Multiorgan failure. 4. Acute systolic heart failure with LVEF 40% to 45%. 5. Left main coronary artery calcification on CT of the abdomen and pelvis. 6. Acute kidney injury. 7. Thrombocytopenia. RECOMMENDATIONS: Continue current cardiac medications. Transition to metoprolol succinate on discharge. Monitor patient on telemetry. Currently, rate controlled, not on anticoagulation due to thrombocytopenia. Continue supportive care. Note plan for MRCP. Continue current cardiac medications. Thank you for this consult. We will continue to follow. Lisbeth Saleh MD ABS/MODL /[id number]
[2018-12-21] MEDS: TRAMADOL HCL 50 MG TAB PO PRN ×2 (17:30→23:09)
[2018-12-21] MEDS: ACETAMINOPHEN 325 MG TAB PO PRN (18:35)
[2018-12-21 20:54] VITALS: BP 154/80
[2018-12-21 20:58] VITALS: BP 154/80
[2018-12-21] MEDS: ZOLPIDEM TARTRATE 10 MG TAB NG PRN (22:20)
[2018-12-22] VITALS (7 sets, daily range): BP systolic 123–154; BP diastolic 74–95
[2018-12-22 05:45] LABS: BASOPHILS % 0.2 % (0.0-1.0); EOSINOPHILS # (AUTO) 0.6 (0.0-0.4); EOSINOPHILS % 6.7 % (0.0-6.0); HEMATOCRIT 24.6 % (38.2-49.6); HEMOGLOBIN 7.9 g/dL (14.0-18.0); LYMPHOCYTES # (AUTO) 1.5 (1.0-3.2); LYMPHOCYTES % 17.5 % (18.0-39.1); MEAN CORPUSCULAR HEMOGLOBIN 29.8 pg (28-32); MEAN CORPUSCULAR HGB CONC 32.1 g/dL (31-35); MEAN CORPUSCULAR VOLUME 92.8 fL (81-99); MONOCYTES # (AUTO) 0.7 (0.2-0.8); MONOCYTES % 8.2 % (4.4-11.3); NEUTROPHILS # (AUTO) 5.6 (2.1-6.9); NEUTROPHILS % 66.6 % (38.7-80.0); PLATELET COUNT 71 x10e3/uL (140-360); RED BLOOD COUNT 2.65 x10e6/uL (4.3-5.7); RED CELL DISTRIBUTION WIDTH 15.8 % (11.7-14.4)
[2018-12-22 06:15] LABS: ALBUMIN 2.2 g/dL (3.5-5.0); ALBUMIN/GLOBULIN RATIO 0.5 (0.8-2.0); ANION GAP 12.4 mmol/L (8-16); CALCIUM 7.4 mg/dL (8.4-10.2); CREATININE, SERUM 1.99 mg/dL (0.72-1.25); POTASSIUM 3.4 mmol/L (3.5-5.1)
[2018-12-22] MEDS: IPRATROPIUM BROMIDE 0.02% 2.5 ML NEB NEB SCH ×4 (07:00→23:45)
[2018-12-22] MEDS: INSULIN LISPRO 100 UNIT/1 ML 3ML VIAL SQ SCH ×4 (07:40→20:30)
[2018-12-22] MEDS ORDERED: POTASSIUM CHLORIDE 10MEQ EA PO ONE (09:00)
[2018-12-22] MEDS: AMIODARONE HCL 200 MG TAB PO SCH ×2 (09:48→17:22)
[2018-12-22] MEDS: PANTOPRAZOLE 40 MG 10ML VIAL IV SCH (09:48)
[2018-12-22] MEDS: EPOETIN ALFA 10000 UNIT/ML VIAL SC SCH (09:48)
[2018-12-22] MEDS: NYSTATIN 15 GM POWDER UD BTL TOP SCH ×2 (09:48→17:22)
[2018-12-22] MEDS: METOPROLOL SUCCINATE 50 MG TAB XL PO SCH ×2 (09:49→17:22)
[2018-12-22] MEDS: CHOLESTYRAMINE 4 GM PACKET PO SCH ×3 (10:29→21:55)
--- NOTE | 2018-12-22 11:21 | Progress Note ---
DATE: 12/22/2018 Cardiology Progress Note SUBJECTIVE: The patient denies chest pain. He is complaining of shortness of breath. OBJECTIVE: VITAL SIGNS: Temperature 98.7 degrees, pulse 86, respiratory rate 16, blood pressure 151/93, and oxygen saturation 98% on room air. GENERAL: Awake and alert, in no acute distress. LUNGS: Clear to auscultation bilaterally. No wheezes or crackles. CARDIOVASCULAR: Normal rate. Irregularly irregular. Normal S1 and S2. ABDOMEN: Soft and nontender. EXTREMITIES: No edema. CARDIAC MEDICATIONS: Metoprolol succinate 150 mg p.o. b.i.d. and amiodarone 200 mg p.o. b.i.d. LABORATORY DATA: WBC 8.42, hemoglobin 7.9, hematocrit 24.6, and platelets 71. Sodium 134, potassium 3.4, chloride 99, CO2 26, BUN 20, and creatinine 1.99. TELEMETRY: Atrial fibrillation. IMPRESSION: 1. Atrial fibrillation. 2. Sepsis. 3. Multiorgan failure. 4. Acute systolic heart failure with LVEF 40% to 45%. 5. Left main coronary artery calcification on CT of the abdomen and pelvis. 6. Acute kidney injury requiring hemodialysis. 7. Thrombocytopenia. RECOMMENDATIONS: Continue current cardiac medications. The patient's heart rate has been controlled. He is not anticoagulated due to thrombocytopenia at this time. We will discuss starting once thrombocytopenia resolves. Continue supportive care. Given finding of coronary artery calcification on CT, would recommend ischemic evaluation with nuclear stress test. This can be performed as an outpatient, as he is without chest pain at this time. Monitor volume status closely. Volume management per Nephrology given need for dialysis. Thank you for this consult. We will continue to follow. Lisbeth Saleh MD ABS/MODL /[id number]
[2018-12-22] MEDS: CEFEPIME 1GM/NS 0.9% 50 ML 50 ML IV SCH (12:05)
[2018-12-22] MEDS: TRAMADOL HCL 50 MG TAB PO PRN (12:17)
[2018-12-22] MEDS: LEVALBUTEROL HCL SOLN NEBU 0.63 MG/3 ML NEB INH PRN (14:35)
--- NOTE | 2018-12-22 16:57 | Progress Note ---
DATE: 12/22/2018 SUBJECTIVE: Mr. Hernandez is lying in bed comfortably. He has no complaints. He said he is feeling better. He is having some shortness of breath on exertion and weak, but overall since he came he is better. PHYSICAL EXAMINATION: GENERAL: He is currently alert and oriented. Does not seem to be in acute distress. VITAL SIGNS: Stable, afebrile, temperature 98.7, heart rate 88, respiration 20, blood pressure 150/93, and O2 saturation 98% on room air. HEENT: Normocephalic. Not icteric. NECK: Supple. No JVD. No lymphadenopathy. No thyromegaly. CHEST: Few crackles at the bases. HEART: S1 and S2. No S3, S4, or murmur. ABDOMEN: Soft, but obese. EXTREMITIES: Edema trace bilateral. LABORATORY DATA: White count 8.42, his hemoglobin 7.9, hematocrit 24, and platelets 71. Sodium 134 and his creatinine 1.99. IMPRESSION: 1. Sepsis, present on admission, resolved. 2. Cholecystitis, resolved. 3. Atrial fibrillation, per Cardiology. 4. Acute congestive heart failure. Ejection fraction 40% to 45%, seems to be better. Left main coronary artery calcification on CAT scan. 5. Acute kidney injury with underlying chronic kidney disease. 6. Thrombocytopenia secondary to liver disease. 7. Status post pneumonia and aspiration, resolved. 8. Pancreatitis, also clinically better. 9. History of alcoholism with liver cirrhosis is better. Overall, the patient seems to be doing well. His medication list, he is currently on Atrovent, Xopenex, cefepime, Questran, and Cordarone. From Infectious Disease point of view, we can discontinue his IV antibiotic. Continue with PT/OT. We will follow. MD JERRICA John/HEIDYL /[id number]
[2018-12-22] MEDS: ACETAMINOPHEN 325 MG TAB PO PRN (19:12)
[2018-12-22] MEDS: ZOLPIDEM TARTRATE 10 MG TAB PO PRN (23:52)
[2018-12-23] VITALS (9 sets, daily range): BP systolic 118–154; BP diastolic 64–93
[2018-12-23 05:17] LABS: BASOPHILS # (AUTO) 0.1 (0.0-0.1); BASOPHILS % 0.6 % (0.0-1.0); EOSINOPHILS # (AUTO) 0.6 (0.0-0.4); EOSINOPHILS % 6.7 % (0.0-6.0); HEMATOCRIT 24.5 % (38.2-49.6); LYMPHOCYTES # (AUTO) 1.7 (1.0-3.2); LYMPHOCYTES % 19.3 % (18.0-39.1); MEAN CORPUSCULAR HEMOGLOBIN 30.4 pg (28-32); MEAN CORPUSCULAR HGB CONC 32.7 g/dL (31-35); MEAN CORPUSCULAR VOLUME 93.2 fL (81-99); MONOCYTES # (AUTO) 0.7 (0.2-0.8); MONOCYTES % 7.7 % (4.4-11.3); NEUTROPHILS # (AUTO) 5.7 (2.1-6.9); NEUTROPHILS % 64.6 % (38.7-80.0); PLATELET COUNT 75 x10e3/uL (140-360); RED BLOOD COUNT 2.63 x10e6/uL (4.3-5.7); RED CELL DISTRIBUTION WIDTH 15.9 % (11.7-14.4)
[2018-12-23 05:45] LABS: ALBUMIN 2.4 g/dL (3.5-5.0); ALBUMIN/GLOBULIN RATIO 0.5 (0.8-2.0); ANION GAP 15.6 mmol/L (8-16); CALCIUM 7.7 mg/dL (8.4-10.2); CREATININE, SERUM 2.1 mg/dL (0.72-1.25); POTASSIUM 3.6 mmol/L (3.5-5.1)
[2018-12-23] MEDS: IPRATROPIUM BROMIDE 0.02% 2.5 ML NEB NEB SCH ×3 (07:15→19:40)
[2018-12-23] MEDS: LEVALBUTEROL HCL SOLN NEBU 0.63 MG/3 ML NEB INH PRN ×2 (07:15→19:40)
[2018-12-23] MEDS: INSULIN LISPRO 100 UNIT/1 ML 3ML VIAL SQ SCH ×4 (07:30→20:52)
--- NOTE | 2018-12-23 07:52 | NUR ---
pt improving and stable, per dr armenta pt to dc tomorrow. possible dialysis today. surgery to be done outpatient
[2018-12-23] MEDS: ACETAMINOPHEN 325 MG TAB PO PRN ×2 (09:06→16:49)
[2018-12-23] MEDS: PANTOPRAZOLE 40 MG 10ML VIAL IV SCH (09:36)
[2018-12-23] MEDS: NYSTATIN 15 GM POWDER UD BTL TOP SCH ×2 (09:36→16:13)
[2018-12-23] MEDS: METOPROLOL SUCCINATE 50 MG TAB XL PO SCH ×2 (09:36→16:13)
[2018-12-23] MEDS: AMIODARONE HCL 200 MG TAB PO SCH ×2 (09:36→16:06)
--- NOTE | 2018-12-23 09:38 | Diagnostic Imaging Report ---
INDICATION: Abdominal pain. COMPARISON: Abdomen pelvis CT December 19, 2018 TECHNIQUE: Abdomen MR with MRCP. FINDINGS: There is a small amount of paraduodenal fluid, indicating pancreatitis or duodenitis. There is no paraduodenal or peripancreatic collection. As demonstrated on CT there is a percutaneous cholecystostomy tube. MRCP images are nondiagnostic; however, the bile ducts are demonstrated on T2 imaging and no biliary ductal dilatation is demonstrated. Body wall edema is noted. No pleural effusion. Liver, spleen, and kidneys are unremarkable. Osseous structures unremarkable. IMPRESSION: Acute duodenitis or pancreatitis. No paraduodenal or peripancreatic collection. Percutaneous cholecystostomy tube. No biliary ductal dilatation. Signed by: Matty Naranjo MD on 12/22/2018 9:29 AM
[2018-12-23] MEDS: CHOLESTYRAMINE 4 GM PACKET PO SCH ×3 (11:06→21:27)
[2018-12-23] MEDS: CEFEPIME 1GM/NS 0.9% 50 ML 50 ML IV SCH (11:59)
[2018-12-23] MEDS: TRAMADOL HCL 50 MG TAB PO PRN ×2 (12:40→20:53)
--- NOTE | 2018-12-23 13:48 | Diagnostic Imaging Report ---
EXAMINATION: CHEST 2 VIEWS INDICATION: Shortness of breath COMPARISON: Chest radiograph of 12/19/2018 FINDINGS: LINES/TUBES:EKG leads overlie the chest. Right IJ central venous catheter terminates in the superior vena cava. LUNGS:The lungs are well-inflated. No focal consolidation or pulmonary edema. PLEURA:No pleural effusion or pneumothorax. MEDIASTINUM:The cardiomediastinal silhouette appears unchanged in size and shape. Atherosclerotic calcifications of the thoracic aorta. BONES/SOFT TISSUES:No acute osseous injury. ABDOMEN:No free air under the diaphragm. IMPRESSION: No focal pneumonia or pulmonary edema. Signed by: Karyn Maldonado MD on 12/23/2018 1:45 PM
--- NOTE | 2018-12-23 16:47 | NUR ---
PT VOIDING 200ML APROX PER VOID
[2018-12-24] MEDS: ZOLPIDEM TARTRATE 10 MG TAB PO PRN (00:01)
--- NOTE | 2018-12-24 00:59 | Progress Note ---
DATE: 12/23/2018 Cardiology Progress Note SUBJECTIVE: The patient denies chest pain, but does report shortness of breath when he lies flat. OBJECTIVE: VITAL SIGNS: Temperature 98.8 degrees, pulse 89, respiratory rate 18, blood pressure 149/91, and oxygen saturation is 98% on room air. GENERAL: Awake, alert, in no acute distress. LUNGS: Clear to auscultation bilaterally. No wheezes or crackles. CARDIOVASCULAR: Normal rate. Irregularly irregular. Normal S1 and S2. ABDOMEN: Soft, nontender. EXTREMITIES: No edema. CARDIAC MEDICATIONS: Metoprolol succinate 150 mg p.o. b.i.d., amiodarone 200 mg p.o. b.i.d. LABORATORY DATA: WBC 8.86, hemoglobin 8, hematocrit 24.5, platelets 75. Sodium 135, potassium 3.6, chloride 100, CO2 of 23, BUN 23, creatinine 2.1. TELEMETRY: Atrial fibrillation, rate controlled. IMPRESSION: 1. Atrial fibrillation. 2. Sepsis. 3. Multiorgan failure. 4. Acute systolic heart failure with left ventricular ejection fraction of 40% to 45%. 5. Left main coronary artery calcification on the CT of the abdomen and pelvis. 6. Acute kidney injury requiring hemodialysis. 7. Thrombocytopenia. RECOMMENDATIONS: Continue current cardiac medications. The patient's heart rate has been controlled. He is not on anticoagulation due to thrombocytopenia. We will discuss starting anticoagulation once thrombocytopenia resolves, in the meantime, continue supportive care. Given finding of coronary artery calcification on CT, I would recommend ischemic evaluation prior to cholecystectomy. This could be performed as an outpatient as he is without chest pain at this time. Monitor volume status closely. Suspect he needs more volume removal, however, defer to Nephrology given dialysis requirement. Antibiotics per Infectious Disease. Thank you for this consult. We will continue to follow. Lisbeth Saleh MD ABS/MODL /[id number]
[2018-12-24] MEDS: IPRATROPIUM BROMIDE 0.02% 2.5 ML NEB NEB SCH ×3 (01:40→13:50)
[2018-12-24] MEDS: LEVALBUTEROL HCL SOLN NEBU 0.63 MG/3 ML NEB INH PRN (01:40)
[2018-12-24 04:25] VITALS: BP 145/93
[2018-12-24 05:16] LABS: BASOPHILS % 0.4 % (0.0-1.0); EOSINOPHILS # (AUTO) 0.8 (0.0-0.4); HEMATOCRIT 23.3 % (38.2-49.6); HEMOGLOBIN 7.4 g/dL (14.0-18.0); LYMPHOCYTES # (AUTO) 1.7 (1.0-3.2); LYMPHOCYTES % 17.5 % (18.0-39.1); MEAN CORPUSCULAR HEMOGLOBIN 29.7 pg (28-32); MEAN CORPUSCULAR HGB CONC 31.8 g/dL (31-35); MEAN CORPUSCULAR VOLUME 93.6 fL (81-99); MONOCYTES # (AUTO) 0.8 (0.2-0.8); MONOCYTES % 8.6 % (4.4-11.3); NEUTROPHILS % 63.4 % (38.7-80.0); PLATELET COUNT 83 x10e3/uL (140-360); RED BLOOD COUNT 2.49 x10e6/uL (4.3-5.7); RED CELL DISTRIBUTION WIDTH 16.1 % (11.7-14.4)
[2018-12-24] MEDS: TRAMADOL HCL 50 MG TAB PO PRN ×2 (05:21→10:34)
[2018-12-24 05:33] LABS: ALBUMIN 2.4 g/dL (3.5-5.0); ALBUMIN/GLOBULIN RATIO 0.5 (0.8-2.0); ANION GAP 11.4 mmol/L (8-16); CALCIUM 7.5 mg/dL (8.4-10.2); CREATININE, SERUM 2.02 mg/dL (0.72-1.25); POTASSIUM 3.4 mmol/L (3.5-5.1)
[2018-12-24 07:00] VITALS: BP 140/101
[2018-12-24] MEDS: INSULIN LISPRO 100 UNIT/1 ML 3ML VIAL SQ SCH ×2 (07:30→11:30)
[2018-12-24] MEDS ORDERED: EPOETIN ALFA 10000 UNIT/ML VIAL SC SCH (09:00)
[2018-12-24] MEDS ORDERED: POTASSIUM CHLORIDE 10MEQ EA PO ONE (09:15)
[2018-12-24] MEDS: METOPROLOL SUCCINATE 50 MG TAB XL PO SCH (09:48)
[2018-12-24] MEDS: AMIODARONE HCL 200 MG TAB PO SCH (09:48)
[2018-12-24] MEDS: PANTOPRAZOLE 40 MG 10ML VIAL IV SCH (09:48)
[2018-12-24] MEDS: NYSTATIN 15 GM POWDER UD BTL TOP SCH (09:49)
[2018-12-24] MEDS: CHOLESTYRAMINE 4 GM PACKET PO SCH ×2 (09:50→14:20)
[2018-12-24] MEDS ORDERED: ACETAMINOPHEN 325 MG TAB PO ONE (10:45)
--- NOTE | 2018-12-24 11:13 | Discharge Summary ---
ADMITTING DIAGNOSES: 1. Sepsis likely secondary to urinary tract infection. 2. Multiorgan failure from sepsis. 3. Acute respiratory failure. 4. Bilateral pneumonia, likely. 5. Acute renal failure. 6. Atrial fibrillation with rapid ventricular rate. DISCHARGE DIAGNOSES: 1. Sepsis secondary to bilateral gram-negative jan pneumonia, resolved. 2. Bilateral gram-negative jan pneumonia, resolved. 3. Acute acalculous cholecystitis, resolved. 4. Status post cholecystostomy tube placement. 5. Acute renal insufficiency secondary to acute tubular necrosis, resolving. 6. Atrial fibrillation with rapid ventricular rate, resolved. 7. Anemia secondary to gastrointestinal bleeding, resolved. 8. Anemia secondary to chronic kidney disease. 9. Acute on chronic systolic/diastolic congestive heart failure, resolved. 10. Chronic systolic/diastolic congestive heart failure. 11. Fatty liver disease. 12. Liver cirrhosis secondary to fatty liver disease, likely. 13. Thrombocytopenia secondary to liver cirrhosis, likely. 14. Pancreatitis, resolved. 15. Chronic alcohol use. 16. Acute on chronic anemia, likely secondary to upper gastrointestinal bleeding. 17. Anemia secondary to chronic disease. 18. Type 2 diabetes mellitus with neuropathy. HOSPITAL COURSE: This is a 58-year-old man, who was initially admitted to [facility] with diagnosis of sepsis as well as multiorgan failure secondary to sepsis. Initially, it was thought sepsis secondary to urinary tract infection. Later, it was concluded the sepsis most likely secondary to bilateral gram-negative jan pneumonia. Moreover, during this hospitalization, he was diagnosed with acute acalculous cholecystitis. Due to his unstable state, the patient did undergo a cholecystostomy tube placement during this hospitalization, which was performed by the interventional radiologist, namely Dr. Biggs. Soon after admission, the patient was intubated endotracheally because of acute respiratory failure secondary to sepsis. Moreover, he developed acute renal insufficiency requiring hemodialysis secondary to acute tubular necrosis from the sepsis. The patient did undergo hemodialysis during this hospitalization. However, during this hospital stay, he did continue to make urine and his renal function did improve as well as his acidosis and hyperkalemia. The senior hydrogeologist Dr. Norton decided that the patient did not require permanent hemodialysis. The patient was successfully extubated during the stay. The patient underwent echocardiogram during this hospitalization, which revealed left ventricular ejection fraction of 45% to 50% with impaired relaxation consistent with diastolic heart failure. The patient was seen by his shared services representative during this hospitalization namely, Dr. Lisbeth Saleh. The patient was also seen by Dr. Burks the farmworker cranberry because of his acute respiratory failure and critical care status. Moreover, the patient was seen by Dr. Amato because of his overwhelming sepsis. The patient was initially started on intravenous norepinephrine for sepsis, but this pressor was able to be discontinued during this hospitalization. Also, during hospitalization, he was diagnosed with atrial fibrillation with rapid ventricular rate and was started on intravenous amiodarone and then later converted to oral amiodarone as well as oral metoprolol succinate. The patient converted to normal sinus rhythm during this hospitalization spontaneous. Also, during this hospitalization, he was found to have acute anemia with Hemoccult-positive stools. Thus, the patient was not started on anticoagulation in regard to his atrial fibrillation because of the likely upper gastrointestinal bleed. During this hospitalization, the patient was transfused 2 units of packed red cells as well as one jumbo pack of platelets. The patient was also seen by vest front presser during this hospitalization namely, Dr. Orosco. During this hospitalization, the patient had iron studies done, but they were not consistent with iron-deficiency anemia. On December 11, 2018, prior to his blood transfusion, the patient was found to have ferritin level of 3660. He was also found to have serum iron level of 94. His TIBC was low at 148. His transferrin level was low at 106. The patient also was found to have mild bout of pancreatitis during hospitalization, but it resolved. Also, during this hospitalization, he was found to have an elevated CA 19-9 antigen with a value of 88. When the patient underwent cholecystostomy tube placement, the fluid was sent for pathology and it was negative for cellular material according to the pathologist. On the day of discharge, the patient's BUN and creatinine was 23 and 2.02 respectively. Also, on day of discharge, his AST and ALT were 23 and 40 respectively. On the day of discharge, albumin was 2.4 g/dL. On December 12, 2018, the patient's prothrombin time and INR level are 16.9 and 1.31 respectively. 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 On day of discharge, white blood cell count was 9400 with 63% segmented neutrophils. Also, on day of discharge, hemoglobin 7.4 g/dL with MCV 93, RDW 16.1. Platelet count was 83,000. During this hospital stay, the patient was started on erythropoietin 20,000 units 3 times a week. The patient's condition on discharge was stable with a fair prognosis. The patient was tolerating regular diet on discharge. During this hospitalization, the patient's was taught how to drain the fluid from the patient's cholecystostomy drain. DISCHARGE MEDICATIONS: 1. Metoprolol succinate 100 mg b.i.d. 2. Amiodarone 200 mg daily. 3. Ceftin 250 mg p.o. b.i.d. for 5 days. 4. Protonix 40 mg daily. 5. Hydrocodone/acetaminophen 7.5/325 one b.i.d. p.r.n. pain, 60 prescribed. The patient was instructed not to take any of his previous home medications without further notice. FOLLOWUP INSTRUCTIONS: The patient was instructed to follow up with his attending, myself, Dr. Vicente Blankenship within 1 week. Absolute alcohol abstinence was recommended to the patient. The patient was also instructed to avoid all NSAIDs. The patient instructed to bring all his medications on the followup office visit. FOLLOWUP INSTRUCTIONS: The patient also will follow up with Dr. Warren Cross in 2 weeks. So, he can be scheduled for elective cholecystectomy. Vicente Blankenship MD MEO/MODL /[id number] cc: MD Dr. Kwesi Burns MD Aziza F Sarker, MD Karan S Bhalla, MD Zaher Shebib, MD
[2018-12-24] MEDS: CEFEPIME 1GM/NS 0.9% 50 ML 50 ML IV SCH (12:00)
[2018-12-24 13:00] VITALS: BP 145/86
[2018-12-24] MEDS ORDERED: METOPROLOL SUC100 MG PO (14:24)
[2018-12-24] MEDS ORDERED: NORCO 7.5-3251 EACH PO (14:24)
[2018-12-24] MEDS ORDERED: AMIODARONE HCL100 MG PO (14:25)
[2018-12-24] MEDS ORDERED: PROTONIX40 MG PO (14:26)
[2018-12-24] MEDS ORDERED: CEFUROXIME250 MG PO (14:27)
[2018-12-24 16:30] VITALS: BP 145/86
--- NOTE | 2018-12-24 16:31 | NUR ---
Patient discharged home via private vehicle in the care of his and brother after teaching of drain care and use provided, 1 PRBC infused, and HD catheter removed.
--- NOTE | 2018-12-24 17:06 | Diagnostic Imaging Report ---
PROCEDURE: X-RAY MODIFIED BARIUM SWALLOW COMPARISON: None. INDICATION: Aspiration Radiation Details: Fluoroscopy time: 1.2 minutes Cumulative dose: 1.2 mGy DISCUSSION: Fluoroscopic examination was performed in conjunction with speech pathology during swallowing a variety of thin and thick liquid consistencies. Provided images demonstrate laryngeal penetration but no aspiration. CONCLUSION: Modified barium swallow demonstrating laryngeal penetration but no aspiration. Please refer to the speech pathology report for further details. Signed by: Karyn Maldonado MD on 12/24/2018 5:03 PM
--- NOTE | 2018-12-25 01:51 | Progress Note ---
DATE: 12/24/2018 Cardiology Progress Note SUBJECTIVE: The patient denies chest pain or shortness of breath. He reports he is being discharged home today. OBJECTIVE: VITAL SIGNS: Temperature 98.5 degrees, pulse 98, respiratory rate 14, blood pressure 145/86, oxygen saturation 100% on room air. GENERAL: Awake, alert, in no acute distress. LUNGS: Clear to auscultation bilaterally. No wheezes or crackles. CARDIOVASCULAR: Irregularly irregular. Normal S1, S2. ABDOMEN: Soft, nontender. EXTREMITIES: No edema. CARDIAC MEDICATIONS: Metoprolol succinate 150 mg p.o. b.i.d., amiodarone 200 mg p.o. b.i.d. LABORATORY DATA: WBC 9.46, hemoglobin 7.4, hematocrit 23.3, platelets 83. Sodium 135, potassium 3.4, chloride 103, CO2 of 25, BUN 23, creatinine 2.02. TELEMETRY: Atrial fibrillation. IMPRESSION: 1. Atrial fibrillation. 2. Sepsis. 3. Multiorgan failure. 4. Acute systolic heart failure with LVEF of 40% to 45%. 5. Left main coronary artery calcification on CT of the abdomen and pelvis. 6. Acute kidney injury, requiring hemodialysis. 7. Thrombocytopenia. RECOMMENDATIONS: Continue current cardiac medications, patient's heart rate has been controlled. He is not on anticoagulation due to thrombocytopenia. I will discuss initiation of anticoagulation with thrombocytopenia resolved. In the meantime, continue supportive care. Given finding of coronary artery calcification on CT, I would recommend ischemic evaluation prior to cholecystectomy. Plan for this to be performed as he is without chest pain at this time. Monitor volume status closely, however, defer volume management to Nephrology given previous need for hemodialysis and acute kidney injury. Antibiotics per Infectious Disease. Thank you for this consult. We will continue to follow. Lisbeth Saleh MD ABS/MODL /[id number]
== END 2018-12-24 16:36 | DRG 870 ==
LOC: ER 13:52 → ERHOLD 16:16 → ICU 20:04 → IMCU 12-18 16:07
PROVIDERS: ADMIT Internal Medicine; ATTEND Internal Medicine
PROC: 5A1955Z Respiratory Ventilation, Greater than 96 Consecutive Hours (ICD-10-PCS; principal; 2018-12-07)
PROC: 0BH18EZ Insertion of Endotracheal Airway into Trachea, Via Natural or Artificial Opening Endoscopic (ICD-10-PCS; 2018-12-07)
PROC: 02HV33Z Insertion of Infusion Device into Superior Vena Cava, Percutaneous Approach (ICD-10-PCS; 2018-12-07)
PROC: 5A1D70Z Performance of Urinary Filtration, Intermittent, Less than 6 Hours Per Day (ICD-10-PCS; 2018-12-08)
PROC: 5A1D70Z Performance of Urinary Filtration, Intermittent, Less than 6 Hours Per Day (ICD-10-PCS; 2018-12-09)
PROC: 30243N1 Transfusion of Nonautologous Red Blood Cells into Central Vein, Percutaneous Approach (ICD-10-PCS; 2018-12-10)
PROC: 0F9430Z Drainage of Gallbladder with Drainage Device, Percutaneous Approach (ICD-10-PCS; 2018-12-10)
PROC: 5A1D70Z Performance of Urinary Filtration, Intermittent, Less than 6 Hours Per Day (ICD-10-PCS; 2018-12-11)
PROC: 5A1D70Z Performance of Urinary Filtration, Intermittent, Less than 6 Hours Per Day (ICD-10-PCS; 2018-12-12)
PROC: 5A1D70Z Performance of Urinary Filtration, Intermittent, Less than 6 Hours Per Day (ICD-10-PCS; 2018-12-14)
PROC: 5A1D70Z Performance of Urinary Filtration, Intermittent, Less than 6 Hours Per Day (ICD-10-PCS; 2018-12-16)
PROC: 5A1D70Z Performance of Urinary Filtration, Intermittent, Less than 6 Hours Per Day (ICD-10-PCS; 2018-12-18)
PROC: 5A1D70Z Performance of Urinary Filtration, Intermittent, Less than 6 Hours Per Day (ICD-10-PCS; 2018-12-21)
DX: A41.9 Sepsis, unspecified organism (principal); N17.0 Acute kidney failure with tubular necrosis; R65.21 Severe sepsis with septic shock; J96.01 Acute respiratory failure with hypoxia; J69.0 Pneumonitis due to inhalation of food and vomit; I50.43 Acute on chronic combined systolic (congestive) and diastolic (congestive) heart failure; N18.6 End stage renal disease; K85.90 Acute pancreatitis without necrosis or infection, unspecified; N39.0 Urinary tract infection, site not specified; E87.1 Hypo-osmolality and hyponatremia; I13.2 Hypertensive heart and chronic kidney disease with heart failure and with stage 5 chronic kidney disease, or end stage renal disease; K82.1 Hydrops of gallbladder; E87.2 Acidosis; D68.9 Coagulation defect, unspecified; Z79.4 Long term (current) use of insulin; N40.0 Benign prostatic hyperplasia without lower urinary tract symptoms; E11.40 Type 2 diabetes mellitus with diabetic neuropathy, unspecified; G89.29 Other chronic pain; M53.87 Other specified dorsopathies, lumbosacral region; R16.0 Hepatomegaly, not elsewhere classified; E55.9 Vitamin D deficiency, unspecified; K70.30 Alcoholic cirrhosis of liver without ascites; F10.20 Alcohol dependence, uncomplicated; E87.6 Hypokalemia; D69.59 Other secondary thrombocytopenia; K70.10 Alcoholic hepatitis without ascites; E11.22 Type 2 diabetes mellitus with diabetic chronic kidney disease; K81.9 Cholecystitis, unspecified; I48.0 Paroxysmal atrial fibrillation; E78.5 Hyperlipidemia, unspecified; Z99.2 Dependence on renal dialysis; D63.1 Anemia in chronic kidney disease; E66.9 Obesity, unspecified; Z68.29 Body mass index [BMI] 29.0-29.9, adult
CPT/HCPCS: 31500; 36415; 36556; 36600; 71045; 71046; 71250; 74018; 74150; 74176; 74181; 74230; 74470; 76700; 76937; 76942; 80048; 80053; 80061; 80202; 81001; 82140; 82150; 82270; 82306; 82550; 82553; 82607; 82728; 82805; 82948; 83540; 83605; 83690; 83735; 83880; 84100; 84165; 84466; 84484; 85025; 85049; 85379; 85384; 85610; 85730; 86022; 86301; 86704; 86705; 86706; 86707; 86850; 86900; 86920; 87040; 87070; 87086; 87205; 87340; 87350; 87400; 88112; 88305; 90962; 93005; 93306; 93970; 94002; 94003; 94640; 94660; 96372; 97139; 99285; C1769; J0330; J0456; J0610; J0692; J0696; J1160; J1200; J1644; J2250; J3370; J3430; J3480; J7030; J7050; J7060; P9016; P9034; P9047; Q4081

== ENCOUNTER → 2019-01-27 | Day surgery (SDC) | payer OTHER ==
[2019-01-26 15:19] LABS: BASOPHILS # (AUTO) 0.1 (0.0-0.1); BASOPHILS % 0.8 % (0.0-1.0); EOSINOPHILS # (AUTO) 0.2 (0.0-0.4); EOSINOPHILS % 2.5 % (0.0-6.0); HEMATOCRIT 29.8 % (38.2-49.6); HEMOGLOBIN 9.9 g/dL (14.0-18.0); LYMPHOCYTES # (AUTO) 2.9 (1.0-3.2); LYMPHOCYTES % 32.1 % (18.0-39.1); MEAN CORPUSCULAR HEMOGLOBIN 31.4 pg (28-32); MEAN CORPUSCULAR HGB CONC 33.2 g/dL (31-35); MEAN CORPUSCULAR VOLUME 94.6 fL (81-99); MONOCYTES # (AUTO) 0.8 (0.2-0.8); MONOCYTES % 9.1 % (4.4-11.3); NEUTROPHILS % 54.7 % (38.7-80.0); PLATELET COUNT 253 x10e3/uL (140-360); RED BLOOD COUNT 3.15 x10e6/uL (4.3-5.7); RED CELL DISTRIBUTION WIDTH 16.1 % (11.7-14.4)
[2019-01-26 15:26] LABS: INR 1.03
[2019-01-26 15:27] LABS: PARTIAL THROMBOPLASTIN TIME 29.2 seconds (23.8-35.5)
[2019-01-26 15:33] LABS: ALANINE AMINOTRANSFERASE 29 IU/L (0-55); ALBUMIN 3.9 g/dL (3.5-5.0); ALBUMIN/GLOBULIN RATIO 0.8 (0.8-2.0); ALKALINE PHOSPHATASE 101 IU/L (40-150); ANION GAP 12.6 mmol/L (8-16); BLOOD UREA NITROGEN 15 mg/dL (7-26); BUN/CREATININE RATIO 14 (6-25); CALCIUM 9.4 mg/dL (8.4-10.2); CARBON DIOXIDE 24 mmol/L (22-29); CHLORIDE 104 mmol/L (98-107); CREATININE, SERUM 1.06 mg/dL (0.72-1.25); EST GLOMERULAR FILTRATION RATE > 60 ML/MIN (60-); GLUCOSE 90 mg/dL (74-118); POTASSIUM 4.6 mmol/L (3.5-5.1); SODIUM 136 mmol/L (136-145)
--- NOTE | 2019-01-26 15:40 | Diagnostic Imaging Report ---
EXAM: CHEST 2 VIEWS DATE: 01/26/2019 2:39 PM INDICATION: Preoperative evaluation, gallbladder surgery COMPARISON: 12/23/2018 FINDINGS: The trachea is midline. The lungs are symmetrically expanded without evidence for large focal consolidation, pneumothorax, or significant pleural effusion. The cardiomediastinal silhouette and pulmonary vasculature are within normal limits. Tortuosity noted of the thoracic aorta. No acute osseous abnormality is identified. The surrounding soft tissues are unremarkable. IMPRESSION: No acute cardiopulmonary process identified. Signed by: Dr. Shahbaz Oconnell MD on 01/26/2019 3:36 PM
[~2019-01-27] MED LIST: AMIODARONE HCL100 MG PO; BUPIVACAINE 0.25%/EPI 30ML SDV INJ ONE; CEFOXITIN SOD 1 GM VIAL ONE; CEFUROXIME250 MG PO; FENTANYL CITRATE/PF 100MCG/2 ML INJ ONE; LABETALOL HCL 20 ML ONE; LIDOCAINE HCL 2% LOCAL INJ 5 ML SDV VIAL INJ ONE; METOPROLOL SUC100 MG PO; METOPROLOL TARTRATE INJ 1 MG/ML VIAL ONE; MIDAZOLAM HCL 2 MG/2 ML VIAL ONE; NORCO 7.5-3251 EACH PO; ONDANSETRON HCL INJ 2MG/ML 2ML 2 MG/ML VIAL ONE; PHENYLEPHRINE HCL 1% 10 MG/ML VIAL ONE; PROPOFOL IV EMULSION 10 MG/ML 20 ML VIAL ONE; PROTONIX40 MG PO; ROCURONIUM BROMIDE 10 MG/ML 5ML VIAL ONE; SEVOFLURANE INHAL SOLN 250 ML PEN BTL ONE
[2019-01-27 15:20] VITALS: BP 140/84
--- NOTE | 2019-01-27 21:16 | Operative Report ---
DATE OF PROCEDURE: 01/27/2019 SURGEON: Warren Cross MD PREOPERATIVE DIAGNOSES: Cholecystitis, status post placement of cholecystostomy tube for acalculous cholecystitis. POSTOPERATIVE DIAGNOSES: Cholecystitis, status post placement of cholecystostomy tube for acalculous cholecystitis. OPERATION PERFORMED: Laparoscopic cholecystectomy. ASSISTANTS: Dr. Beto Cross and CANDELARIA Sandoval. ANESTHESIA: General. COMPLICATIONS: None. ESTIMATED BLOOD LOSS: Minimal. DESCRIPTION OF PROCEDURE: With the patient lying in bed in the supine position under good general endotracheal anesthesia, the abdomen was prepped with Betadine solution and draped in the usual manner. A Veress needle was introduced into the umbilicus and pneumoperitoneum was established without any difficulty. An 11-mm trocar was placed into the umbilicus and a 10-mm video laparoscope was placed into the intra-abdominal cavity. Video laparoscopy at this point revealed the gallbladder with a cholecystostomy tube coming in through the anterior wall. The gallbladder was thick-walled and there was at least one large lymph node in the neck of the gallbladder. There were also some adhesions to the right upper quadrant from omentum being stuck to the gallbladder and into abdominal wall from the previous cholecystitis. A 5-mm trocar was then placed in the left upper quadrant and three more 5-mm trocars were placed in the right upper quadrant. All of the adhesions were then slowly and carefully taken down. Once this was done, the peritoneum overlying the neck of the gallbladder was opened and the cystic duct was identified. The cystic duct was followed to its junction with the common duct. The cystic duct was then circumferentially dissected away from the common duct, doubly clipped, and divided. The cystic artery was similarly doubly clipped and divided. The gallbladder was then slowly and carefully taken off the liver bed using the cautery scissors. Towards the top of the gallbladder or the side of the cholecystostomy tube, there was a lot more thickening and reaction. Nonetheless, the gallbladder was totally taken off the liver bed including the cholecystostomy tract. After this was done, the gallbladder was placed in a pouch and removed through the umbilicus without any difficulty. Video laparoscopy was then again carried out. The liver bed was found to be perfectly dry. All the excess fluid was aspirated. The pneumoperitoneum was evacuated and all the trocars were removed under direct vision. The midline fascia at the umbilicus was then closed with a [id number] of #0 Vicryl. All layers were infiltrated on the way out with solution of 0.25% Marcaine. Subcutaneous tissue was approximated with 3-0 Vicryl, and the skin was closed with subcuticular 5-0 Vicryl. Benzoin, Steri-Strips, and Band-Aids were applied. The sponge, lap, and needle count was correct. The patient tolerated the procedure well and returned to the recovery room in stable condition. MD BISHOP Brown/SANTOS /[id number]
== END | disposition home or self-care (01) ==
LOC: OR 09:17
PROVIDERS: ATTEND Surgery
DX: K81.0 Acute cholecystitis (principal); K81.1 Chronic cholecystitis; I11.0 Hypertensive heart disease with heart failure; I50.9 Heart failure, unspecified; I48.92 Unspecified atrial flutter; E11.9 Type 2 diabetes mellitus without complications; K76.0 Fatty (change of) liver, not elsewhere classified; Z98.890 Other specified postprocedural states; M19.90 Unspecified osteoarthritis, unspecified site; F32.9 Major depressive disorder, single episode, unspecified; F41.9 Anxiety disorder, unspecified; Z01.810 Encounter for preprocedural cardiovascular examination; Z01.812 Encounter for preprocedural laboratory examination; Z01.818 Encounter for other preprocedural examination; Z87.01 Personal history of pneumonia (recurrent)
CPT/HCPCS: 36415 ×2; 47562; 71046; 80053; 82948; 85025; 85610; 85730; 88304; 93005; C1766; J0694; J2001; J2250; J2370; J2405; J2704; J3010; J3490

== ENCOUNTER → 2019-11-02 | Day surgery (SDC) | payer OTHER ==
[2019-10-28 13:50] LABS: BASOPHILS % 0.4 % (0.0-1.0); EOSINOPHILS # (AUTO) 0.1 (0.0-0.4); EOSINOPHILS % 1.2 % (0.0-6.0); HEMATOCRIT 40.3 % (38.2-49.6); HEMOGLOBIN 14.1 g/dL (14.0-18.0); MEAN CORPUSCULAR HEMOGLOBIN 30.5 pg (28-32); MEAN CORPUSCULAR VOLUME 87.2 fL (81-99); MONOCYTES # (AUTO) 0.6 (0.2-0.8); MONOCYTES % 6.8 % (4.4-11.3); NEUTROPHILS # (AUTO) 5.2 (2.1-6.9); NEUTROPHILS % 58.2 % (38.7-80.0); PLATELET COUNT 260 x10e3/uL (140-360); RED BLOOD COUNT 4.62 x10e6/uL (4.3-5.7); RED CELL DISTRIBUTION WIDTH 12.9 % (11.7-14.4)
[2019-10-28 14:17] LABS: ALBUMIN 4.5 g/dL (3.5-5.0); ALBUMIN/GLOBULIN RATIO 1.2 (0.8-2.0); ANION GAP 17.3 mmol/L (8-16); CREATININE, SERUM 1.28 mg/dL (0.72-1.25); POTASSIUM 3.3 mmol/L (3.5-5.1)
[~2019-11-02] VITALS: Ht 177.8 cm; Wt 102.5 kg
[2019-11-02] VITALS (8 sets, daily range): BP systolic 114–156; BP diastolic 61–95
[~2019-11-02] MED LIST changes: +ALKA-SELTZER E1 EACH PO; +ALPRAZOLAM 0.5 MG TAB ONE; -BUPIVACAINE 0.25%/EPI 30ML SDV INJ ONE; -CEFOXITIN SOD 1 GM VIAL ONE; +DIOVAN160 MG PO; +DIPHENHYDRAMINE HCL 25 MG CAP ONE; +FUROSEMIDE40 MG PO; +HEPARIN SOD/SOD CHLORIDE 2,000 ML ONE; +HYDRALAZINE HCL25 MG PO; +HYDROCHLOROTHIA25 MG PO; +IOPAMIDOL 370 MG/ML 200 ML INFUS..BTL INJ ONE; +ISOSORBIDE MONO30 MG PO; -LABETALOL HCL 20 ML ONE; +LIDOCAINE HCL 2% LOCAL 20 ML VIAL ONE; -LIDOCAINE HCL 2% LOCAL INJ 5 ML SDV VIAL INJ ONE; -METOPROLOL TARTRATE INJ 1 MG/ML VIAL ONE; -ONDANSETRON HCL INJ 2MG/ML 2ML 2 MG/ML VIAL ONE; -PHENYLEPHRINE HCL 1% 10 MG/ML VIAL ONE; +PRISTIQ ER50 MG PO; -PROPOFOL IV EMULSION 10 MG/ML 20 ML VIAL ONE; -ROCURONIUM BROMIDE 10 MG/ML 5ML VIAL ONE; -SEVOFLURANE INHAL SOLN 250 ML PEN BTL ONE; +SODIUM CHLORIDE 0.9% 1000ML 1,000 ML ONE; +VERAPAMIL HCL 2.5 MG/ML 2 ML VIAL ONE
--- NOTE | 2019-11-02 11:04 | Operative Report ---
DATE OF PROCEDURE: 11/02/2019 SURGEON: Jorge Mendoza MD INDICATION: Coronary artery disease, angina, and abnormal stress test. PROCEDURES PERFORMED: 1. Ultrasound-guided access in the right radial artery with sheath placement. 2. Left heart catheterization, selective coronary angiography. 3. Conscious sedation 35 minutes. COMPLICATIONS: None. RECOMMENDATION: Medical therapy. DESCRIPTION OF PROCEDURE: Access obtained in the right radial artery using ultrasound guidance. A 5-Welsh sheath was placed. Coronary angiography demonstrated mild coronary artery disease, 10% to 20% luminal stenosis. No critical stenosis or occlusions were noted. AJAY-3 flow in all vessels. Right wrist TR band applied. The patient discharged home same day. Jorge Mendoza MD KSB/MODL /[id number]
--- NOTE | 2019-11-02 11:11 | NUR ---
1111Received pt to room #7,bedside report received from Federico ROCA. Alert oriented and appropriate, PERRLA, respirations even and unlabored to room air. Pulses x4 extremities equal and strong. Pedal pulses PT/DP 4 and marked. Cap fill brisk < 3 sec. SARAH ok to dc at 12n NO eating for 2 hours Skin warm and dry integrity appears D/I. IV 20g to rt AC presents healthy w/o s/s of infiltration or complaint. Abdomen soft and supple. pt offered toileting, denies need to urinate or defecate. No personal affects with patient. Family at bedside. Pt and family verbalizes understanding of POC. Currently w/o complaint of pain or need. ds/rn
--- NOTE | 2019-11-02 12:00 | NUR ---
1200Pt meets DC criteria. Chest assessed for s/s of complication and presence of hematoma. Skin warm, dry, no discolor, and pulses present. IV removed from rt ac. Distal tip appears intact. VS WNL. Pt denies pain, sob, or need at this time. Family at bedside. Review of discharge paperwork and follow up instructions. verbalized understanding. Pt to wheelchair and transported to front of hospital. Transferred to private vehicle under own strength w/o incident with DC paperwork in hand. 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 ds/rn
== END | disposition home or self-care (01) ==
LOC: CATH LAB 08:55
PROVIDERS: ATTEND Internal Medicine Interventional Cardiology
DX: I25.10 Atherosclerotic heart disease of native coronary artery without angina pectoris (principal); Z01.812 Encounter for preprocedural laboratory examination; Z11.59 Encounter for screening for other viral diseases
CPT/HCPCS: 36415 ×2; 76937 ×2; 80053; 82948; 85025; 93454; C1769 ×2; C1887; J2001; J2250; J3010; J7030; Q9967; U0002; 99152